=== PATIENT | female | born 1985 | race Asian ===

== ENCOUNTER 2020-09-17 14:05 | Outpatient (RCR) | payer BC, SELFPAY | END 2020-11-30 23:59 | LOC: IMMUN 14:05 | PROVIDERS: PCP Family Medicine; Visit Provider Family Medicine | DX: Z23 Encounter for immunization (principal) | CPT/HCPCS: 0001A; 0002A; 91300 ==

== ENCOUNTER 2023-05-15 05:31 | Inpatient (IN) | payer OTHER, SELFPAY ==
--- NOTE | 2023-05-08 17:22 | PCM.HP.BLA ---
History and Physical Date of Admission: 05/15/23 HPI: The patient is a 38 year old female presenting for pre-operative visit. She is scheduled for , for polyhydramnios, GDMA1 and EFW > 4500 gm on 05/15/23. Procedure discussed along with risks, benefits and complications. Other alternatives discussed for management. Consent form signed? Yes. ? ? PAST MEDICAL HISTORY PAST MEDICAL HISTORY Diagnosis Date ? Abnormal glandular Papanicolaou smear of cervix ? ? Chlamydia 2016 ? Cleft lip and palate ? ? Diet controlled gestational diabetes mellitus (GDM) in third trimester 04/04/2023 ? PMS (premenstrual syndrome) ? ? ? PAST SURGICAL HISTORY PAST SURGICAL HISTORY Procedure Laterality Date ? ANES INTRAORAL W/BIOPSY REPAIR CLEFT PALATE ? 1987 ? BONE GRAFT MAXILLA ? 06/25/1994 ? EXTENSIVE JAW SURGERY ? 06/25/2000 ? VAGINOSCOPY ? CURRENT MEDICATIONS Current Outpatient Medications Medication Sig Dispense Refill ? blood sugar diagnostic test strip 1 Strip four times daily. Use as instructed 120 Strip 9 ? Lancets lancets 1 Each four times daily. Use as instructed 120 Each 9 ? prental multivitamin 27 mg iron- 800 mcg tablet Take 1 tablet by mouth once daily. ? ? ? No current facility-administered medications for this visit. ? ? ALLERGIES: Amoxicillin, Penicillins, and Sulfa (Sulfonamide Antibiotics) ? PERSONAL HISTORY: SOCIAL HISTORY Social History ? Tobacco Use ? Smoking status: Former ? ? Years: 15 ? ? Types: Cigarettes ? ? Quit date: 06/27/2022 ? ? Years since quittin.8 ? Smokeless tobacco: Never Vaping Use ? Vaping Use: Never used Substance Use Topics ? Alcohol use: Not Currently ? ? Comment: occasionally ? Drug use: No ? FAMILY HISTORY: FAMILY HISTORY FAMILY HISTORY Adopted: Yes Problem Relation Age of Onset ? other (unknown) Mother ? ? patient is adopted ? other (unknown) Father ? ? patient is adopted ? ? REVIEW OF SYMPTOMS: GENERAL: denies fevers or chills ENDOCRINOLOGY: has not been on steroids Cardiology : denies palpitations or chest pain Respiratory: denies SOB or cough Hematology: denies history of prolonged bleeding or easy bruising or VTE Allergy: Denies history of personal or family history of allergy to anesthesia ? PHYSICAL EXAMINATION: ? VITALS: Blood pressure 132/88, weight 237 lb (107.5 kg), last menstrual period 08/17/2022. ? GENERAL: The patient is well nourished, well hydrated in no acute distress. , The patient is oriented to time, place, and person. NECK: Supple. No lynphadenopathy, normal thyroid, no thyromegaly. LUNGS: Clear to auscultation bilaterally. no wheezes, rhonchi or rales HEART: Regular rate and rhythm, Normal heart sounds, and No murmurs or gallops abd- soft, nontender, gravid ? IMPRESSION: Estimated Date of Delivery: 05/24/23 ? PLAN: The risks/benefits/alternatives and personal involved for the planned c/sectoin were reviewed with the patient. Her questions were answered to her satisfaction and she desires to proceed. Consent was signed. I reviewed with her postop instructions and expectations. Estimated weight is greater than 4500 g, GDM A1, blood sugars controlled, accelerated growth with polyhydramnios. Maternal- medicine recommends delivery at 38 to 39 weeks unless other indication arises sooner. ? I have reviewed and updated past medical and surgical history, medications and allergies
[2023-05-15] VITALS (22 sets, daily range): BP systolic 106–146; BP diastolic 44–90; PULSE 67–87; RESP 15–18; TEMP 36.1–36.8; O2SAT 95–100; BMI 41.7
[2023-05-15] MEDS: Lactated Ringers 1,000 ML 999 ML IV (05:50)
[2023-05-15 06:04] LABS: Absolute Lymphocyte Count 1.24 X10^3/uL (0.83-4.51); Basophil# 0.06 X10^3/uL; Basophil% 0.6 % (0-1); Eosinophil# 0.16 X10^3/uL; Eosinophils% 1.6 % (0-5); Hematocrit 37.9 % (37-47); Hemoglobin 12.5 g/dL (12.0-15.0); Lymphocyte # 1.24 X10^3/ul (0.83-4.51); Lymphocyte % 12.1 % (19-41); Mean Corpuscular Hgb 29.2 pg (27.0-32.0); Mean Corpuscular Volume 88.6 fL (81-99); Monocyte# 0.55 X10^3/uL; Monocyte% 5.4 % (0-10); NRBC Flagged by Analyzer 0 % (0-5); Neutrophil # 8.02 X10^3/uL (2.7-7.7); Neutrophil % 78.5 % (47-70); Platelet Count 202 K/mm3 (150-450); RBC Distribution Width CV 13.5 % (11.6-14.6); RBC Distribution Width SD 43.8 fl (35.1-43.9); Red Blood Count 4.28 M/mm3 (4.2-5.4); White Blood Count 10.2 K/mm3 (4.4-11.0)
[2023-05-15] MEDS: Acetaminophen 500 MG Tablet 1000 MG PO ×4 (06:18→23:50)
[2023-05-15 06:25] LABS: Bedside Glucose 110 mg/dL (74-106)
[2023-05-15] MEDS: Lactated Ringers 1,000 ML 150 ML IV (06:55)
[2023-05-15] MEDS: Sodium Citrate/Citric Acid 30 ML UDC PO (06:59)
[2023-05-15] MEDS: guaiFENesin 10 ML UDC (200MG/10ML) PO (07:05)
[2023-05-15] MEDS: Cefazolin 2 GM in 0.9% Normal Saline (100mL Bag) 100 ML IV (07:26)
--- NOTE | 2023-05-15 08:21 | OP.PCM_ITS ---
Maternal Data Information Final KHAI: 05/15/23
--- NOTE | 2023-05-15 08:21 | EX.PCM.OBRPT ---
Maternal Data Information Final KHAI: 05/24/23 Gestational age: 38 5/7 Details Operative Information Date of Procedure: 05/15/23 Pre-Operative Diagnosis: gestational diabetes, accelerated growth, MFM recommend delivery 38-39 weeks Post-Operative Diagnosis: same Classification: Scheduled Procedure Type: low transverse sports equipment supervisor #1: Ryan Contreras Type of Anesthesia: Epidural Special Medications: duramorph Antibiotic Given: Ancef 2 grams IV x1 Drain: [place] to straight drain Estimated Blood Loss: 800 Fluids Replaced: 1000 Procedure Start Time: 07:48 Procedure Stop Time: 08:27 Time of Delivery: 07:53 Findings Description of Procedure: The patient was taken to the operating room. She was prepped and draped in the dorsal supine position with a leftward tilt. A Pfannenstiel skin incision was made approximately 2 cm above the symphysis pubis and carried through to underlying layer fascia with the scalpel. The fascia was incised incised in the midline and extended laterally with the Carlos scissors. The fascia was dissected off the rectus muscles with blunt and sharp dissection. The rectus muscles were in the midline and the peritoneum was entered bluntly. The peritoneal incision was stretched and the bladder blade was placed. The uterine incision was made in a low transverse fashion with the scalpel and extended superiorly and inferiorly with blunt dissection. The amniotic membranes were ruptured bluntly and clear amniotic fluid returned. The 's head was brought to the incision in the flexed position and was not able to be delivered which is fundal pressure. The vacuum was placed and the vacuum created 550 mmHg. I pulled with 1 pull and the head delivered easily. The remainder of the was delivered with gentle traction and fundal pressure in the standard fashion. The mouth and nares were bulb suctioned. The cord was clamped and cut as the was stimulated. Cord clamping was delayed. The infant was handed off to the waiting nursing staff. The placenta was delivered with fundal massage and gentle traction in the standard fashion. The uterus was exteriorized and cleared of all clots and debris. The cervix was dilated with a ring forcep. The uterine incision was closed with #1 Vicryl in a running locked fashion. A second layer of the same suture was used in an imbricating fashion to obtain hemostasis. The incision was examined and was found to be hemostatic. The uterus was placed back into the peritoneal cavity and hemostasis was again confirmed. The rectus muscles were examined and any bleeding was Bovie cauterized. The parietal peritoneum and rectus muscles were closed en bloc with an 0 Vicryl running suture. The surgical teams outer gloves were then changed. The rectus fascia was examined and any bleeding was Bovie cauterized and the rectus fascia was closed with #1 looped PDS suture in a running standard fashion. The subcutaneous tissue was examining and any bleeding was Bovie cauterized. The subcutaneous tissue was reapproximated with 3-0 Vicryl suture. The skin was closed in a subcuticular fashion by the [employer] with me present in the labor and delivery suite. I performed the remainder of the procedure with assistance. All sponge, lap, and needle counts were correct. The patient was taken to her room for recovery in a stable condition. Presentation: Positive for Vertex Amniotic Membrane Rupture Type: Artificial Amniotic Fluid Description: Clear Placental Delivery Description: Expressed Placenta Disposition: [facility] Specimen(s) Sent to Pathology: none Cord Vessel Description: 3 Vessels Cord Entanglement: Around neck x 1, loose Nuchal Cord Compression: Without compression Infant A Gender: Male (Garry Carmona) (1 minute): 8 (5 minute): 9 Delayed Cord Clamping: Yes Complications Complications: none Admit VTE Documentation VTE Present on Admission: No VTE Mechan Device Prophylaxis: SCD's VTE Pharm Prophylaxis Ordered: Yes
[2023-05-15 08:25] LABS: Syphilis Antibodies Non-reactive
[2023-05-15] MEDS: Oxytocin 15 Units/NS 250ml 15 UNITS/250 ML IV.SOLN 83 UNITS IV (08:50)
[2023-05-15] MEDS: Ketorolac 30 MG/ML Syringe IV ×3 (09:16→21:34)
[2023-05-15 10:04] LABS: Bedside Glucose 116 mg/dL (74-106)
[2023-05-15] MEDS: Lactated Ringers 1,000 ML 100 ML IV (11:59)
[2023-05-15] MEDS: Enoxaparin 40 MG/0.4 ML Syringe SC (20:00)
[2023-05-15] MEDS: 0.9% Saline Lock 10 ML Syringe IV (21:34)
[2023-05-16 01:45] VITALS: RESP 15; O2SAT 96
[2023-05-16] MEDS: Ketorolac 30 MG/ML Syringe IV (03:30)
[2023-05-16] MEDS: 0.9% Saline Lock 10 ML Syringe IV (03:31)
[2023-05-16 03:45] VITALS: BP 122/73; PULSE 78; RESP 16; TEMP 36.8; O2SAT 96
[2023-05-16 04:19] LABS: Hematocrit 33.2 % (37-47); Hemoglobin 10.9 g/dL (12.0-15.0); Mean Corp Hgb Conc 32.8 g/dL (32-36); Mean Corpuscular Hgb 29.5 pg (27.0-32.0); Mean Platelet Vol. 9.8 fl (6.2-12.0); Platelet Count 193 K/mm3 (150-450); RBC Distribution Width CV 13.6 % (11.6-14.6); RBC Distribution Width SD 44.4 fl (35.1-43.9); Red Blood Count 3.69 M/mm3 (4.2-5.4); White Blood Count 15.8 K/mm3 (4.4-11.0)
[2023-05-16 04:21] LABS: Bedside Glucose 108 mg/dL (74-106)
[2023-05-16] MEDS: Acetaminophen 500 MG Tablet 1000 MG PO ×3 (05:35→19:45)
[2023-05-16 05:45] VITALS: RESP 16; O2SAT 95
[2023-05-16 08:00] VITALS: BP 113/69; PULSE 74; RESP 18; TEMP 36.6; O2SAT 96
--- NOTE | 2023-05-16 08:20 | PCM.PN.OB ---
Subjective Subjective Pain wellcontrolled. Average lochia. Ambulated and urinated without difficulty. Passing flatus. Denies nausea vomiting. Objective Data Objective Data Vital Signs: Vital Signs Temp Pulse Resp BP Pulse Ox O2 Del Method 97.8 F 74 18 113/69 96 Room Air 05/16/23 08:00 05/16/23 08:00 05/16/23 08:00 05/16/23 08:00 05/16/23 08:00 05/16/23 08:00 Oxygen Delivery Method Room Air Weight: 106.8 kg Body Mass Index (BMI) 41.7 Intake & Output: Intake and Output for Last 24 Hours 05/14/23 05/15/23 05/16/23 23:59 23:59 23:59 Intake Total 3300 / 3300 Output Total 1500 / 2200 1350 / 1350 Balance 1800 / 1100 -1350 / -1350 Lab / Micro Data 05/16/23 04:00 Labs: Laboratory Results - last 24 hr 05/15/23 05:50: Syphilis Total Ab Non-reactive 05/15/23 09:17: POC Glucose 116 H 05/16/23 03:52: POC Glucose 108 H 05/16/23 04:00: WBC 15.8 H, RBC 3.69 L, Hgb 10.9 L, Hct 33.2 L, MCV 90.0, MCH 29.5, MCHC 32.8, RDW Std Deviation 44.4 H, RDW Coeff of Luz 13.6, Plt Count 193, MPV 9.8 Micro: Microbiology 05/15/23 07:20 Nasal Secretion SARS-CoV-2 & FLU Antigen (Rapid) - Final Physical Exam Const alert General Appearance: cooperative GI GI Narrative: soft, moderate distention, fundus firm, appropriately tender. Abdominal bandage clean dry and intact Assessment & Plan (1) delivery delivered: PLAN: Postop day #1 status post primary section. Mild acute blood loss anemia appropriate for blood loss during surgery. Patient and are doing well. Likely discharge home tomorrow. Routine postop care.
[2023-05-16] MEDS: Enoxaparin 40 MG/0.4 ML Syringe SC ×2 (09:24→19:46)
[2023-05-16] MEDS: Senna/Docusate Sodium 1 Tablet PO (09:24)
[2023-05-16] MEDS: Ibuprofen 600 MG Tablet PO ×3 (09:24→21:26)
--- NOTE | 2023-05-16 10:24 | PCM.PN.CNM ---
Objective Data Objective Data Vital Signs: Vital Signs Temp Pulse Resp BP Pulse Ox O2 Del Method 97.8 F 74 18 113/69 96 Room Air 05/16/23 08:00 05/16/23 08:00 05/16/23 08:00 05/16/23 08:00 05/16/23 08:00 05/16/23 08:00 Oxygen Delivery Method Room Air Weight: 235 lb 7.259 oz Body Mass Index (BMI) 41.7 Intake & Output: Intake and Output for Last 24 Hours 05/14/23 05/15/23 05/16/23 23:59 23:59 23:59 Intake Total 3300 / 3300 Output Total 1500 / 2200 1350 / 1350 Balance 1800 / 1100 -1350 / -1350 Lab / Micro Data 05/16/23 04:00 Labs: Laboratory Results - last 24 hr 05/16/23 03:52: POC Glucose 108 H 05/16/23 04:00: WBC 15.8 H, RBC 3.69 L, Hgb 10.9 L, Hct 33.2 L, MCV 90.0, MCH 29.5, MCHC 32.8, RDW Std Deviation 44.4 H, RDW Coeff of Luz 13.6, Plt Count 193, MPV 9.8 Micro: Microbiology 05/15/23 07:20 Nasal Secretion SARS-CoV-2 & FLU Antigen (Rapid) - Final Assessment & Plan PLAN: Plan updated on the above assessment findings and plan
[2023-05-16 13:39] VITALS: BP 120/88; PULSE 71; RESP 18; TEMP 36.2
[2023-05-16 19:51] VITALS: BP 135/74; PULSE 75; RESP 16; TEMP 36.6; O2SAT 96
[2023-05-17] MEDS: Acetaminophen 500 MG Tablet 1000 MG PO ×2 (01:59→08:14)
[2023-05-17 02:01] VITALS: BP 134/64; RESP 18; TEMP 36.4; O2SAT 95
[2023-05-17] MEDS: Ibuprofen 600 MG Tablet PO ×2 (03:38→10:25)
--- NOTE | 2023-05-17 06:59 | PCM.PN.OB ---
Subjective Subjective pain well controlled, average lochia. + BM. Ambulating nad urinating without difficulty Objective Data Objective Data Vital Signs: Vital Signs Temp Pulse Resp BP Pulse Ox O2 Del Method 97.6 F L 75 18 134/64 H 95 Room Air 05/17/23 02:01 05/16/23 19:51 05/17/23 02:01 05/17/23 02:01 05/17/23 02:01 05/17/23 02:01 Oxygen Delivery Method Room Air Weight: 106.8 kg Body Mass Index (BMI) 41.7 Intake & Output: Intake and Output for Last 24 Hours 05/15/23 05/16/23 05/17/23 23:59 23:59 23:59 Intake Total 3300 / 3300 Output Total 1500 / 2200 1350 / 1350 Balance 1800 / 1100 -1350 / -1350 Lab / Micro Data 05/16/23 04:00 Micro: Microbiology 05/15/23 07:20 Nasal Secretion SARS-CoV-2 & FLU Antigen (Rapid) - Final Physical Exam Narrative bandage- clean, dry and intact abd soft, mild distention, appropriate tenderness Const alert General Appearance: cooperative GI GI Narrative: soft, moderate distention, fundus firm, appropriately tender. Abdominal bandage clean dry and intact Narrative: Fundus firm, below umbilicus. Assessment & Plan (1) delivery delivered: PLAN: Plan Postoperative day #2 status post primary section. Patient doing well. Likely discharge home today
--- NOTE | 2023-05-17 07:07 | DS.PCM_ITS ---
Providers Date of Admission: 05/15/23 Date of Discharge: 05/17/23 Primary Care Physician: Dr. Shaun Garrett MD Reason For Visit: PRIMARY Diagnosis Discharge Diagnosis (1) delivery delivered: Status: Acute Code(s): O82 - Encounter for delivery without indication Plan Postoperative day #2 status post primary section. Patient doing well. Likely discharge home today Medications at Discharge Home Medications vit no.95-ferrous fumarate 28 mg-folic acid 800 mcg tablet () 1 tab PO DAILY 05/15/23 ibuprofen 600 mg tablet 600 mg PO Q6H PRN Pain 20 days #60 TABLETS 05/17/23 oxycodone 5 mg tablet 5 mg PO Q8H PRN severe pain 7 days #8 TABLETS 05/17/23 Hospital Course Operations - (Primary LTCS) Summary of Care Provided Minutes Spent on Discharge: 16 Hospital Course: 38-year-old Time parous female admitted for gestational diabetes, polyhydramnios and LGA fetus. Elected for primary section due to estimated weight being approximately 4500 g with gestational diabetes. section was performed on 05/15/2023 without complications. By postop day #2 she was ambulating urinating tolerating regular diet and ready to discharge home with routine instructions and follow-up Weight / BMI Weight Weight: 106.8 kg Body Mass Index (BMI) 41.7 ABG / Lab / Microbiology Data 05/16/23 04:00 Microbiology: Microbiology 05/15/23 07:20 Nasal Secretion SARS-CoV-2 & FLU Antigen (Rapid) - Final D/C Instructions Discharge Diet: No restrictions May resume sexual activity in: 4-6 weeks Lifting Restrictions: 20 pounds Additional Activity Instructions: Nothing in the vagina for 6 weeks. You may return to work/school in 6 weeks. Call your doctor if your incision/area has: Continuous Slow Oozing, Sudden Increased Bleeding, Increased Pain/ Swelling, Increased Redness and Foul Smelling Discharge Call your doctor if you observe: Fever of 101 or Higher and Using more than 1 pad per hour (for 2 hours) Suture Line Care: Avoid Pulling/Pushing and Avoid Pinching/Bending Cleanse incision/area with: Keep Dressing Clean & Dry Please Follow Up With: Yael Araujo MD When: Call to make an appointment for an incision check in 1-2 [phone]. You will need a post check in 6 weeks. Send a CC video message for nonurgent inquiries Meaningful Use Info Meaningful Use Diagnoses (Choose all that apply): None applicable Discharge Plan Admission Admit Date/Time: 05/15/23 05:31 Primary Reason for Your Visit: delivery Attending Provider: Yael Araujo Primary Care Provider: Shaun Garrett Discharge Orders/Prescriptions Prescriptions: New ibuprofen [ibuprofen] 600 mg tablet 600 mg PO Q6H PRN (Reason: Pain) 20 Days Qty: 60 0RF oxycodone 5 mg tablet 5 mg PO Q8H PRN (Reason: severe pain) 7 Days Qty: 8 0RF Continued PNV cmb#95-ferrous fumarate-FA [] 28 mg iron- 800 mcg tablet 1 tab PO DAILY Referrals / Follow Up: Shaun Garrett MD [Primary Care Provider] - Disposition Disposition (needs filled in before D/C Order can be placed): Home, Self Care
[2023-05-17 08:02] VITALS: BP 138/70; PULSE 75; RESP 16; TEMP 36.5; O2SAT 96
[2023-05-17] MEDS: Enoxaparin 40 MG/0.4 ML Syringe SC (08:13)
[2023-05-17] MEDS: Senna/Docusate Sodium 1 Tablet PO (10:25)
== END 2023-05-17 11:40 | disposition home or self-care (01) | DRG 788 ==
PROVIDERS: Obstetrics & Gynecology; Admitting Provider Obstetrics & Gynecology; PCP Family Medicine; Visit Provider Obstetrics & Gynecology
PROC: 10D00Z1 Extraction of Products of Conception, Low, Open Approach (ICD-10-PCS; CPT 59514; principal; 2023-05-15 07:00)
DX: O40.3XX0 Polyhydramnios, third trimester, not applicable or unspecified (principal); O24.420 Gestational diabetes mellitus in childbirth, diet controlled; J06.9 Acute upper respiratory infection, unspecified; O36.63X0 Maternal care for excessive fetal growth, third trimester, not applicable or unspecified; O99.52 Diseases of the respiratory system complicating childbirth; O69.81X0 Labor and delivery complicated by cord around neck, without compression, not applicable or unspecified; Z37.0 Single live birth; Z3A.38 38 weeks gestation of pregnancy; Z87.891 Personal history of nicotine dependence
CPT/HCPCS: 59025; 59050; 82962; 85025; 85027; 86780; 86850; 86900; 86901; 87428; 99221; 99252; J7120; A4216; G0378; G0463; J2405

== ENCOUNTER 2024-04-18 14:06 | Emergency (ER) | payer OTHER, SELFPAY ==
[2024-04-18 14:07] VITALS: BP 140/96; PULSE 71; RESP 18; TEMP 35.6; O2SAT 100; BMI 33.6
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
--- NOTE | 2024-04-18 15:15 | ED.RN ---
pt comes out to the nurses station and is completely dressed- pt states since im refusing the xray, can i just go home now? is there anything that i need to sign? Dr. culver updated at this time.
--- OUTSIDE RECORDS SUMMARY | 2024-04-18 16:35 | XMS RPT_ITS | CCD ---
Author Organization [facility] CliniSyaz Care Team Providers Care Charge Attendant Name Role Phone Sherry Garrett Primary Care Provider SHERRY GARRETT Primary Care Unavailable MAGUI DEE Referring Unavail able SOLE VOGEL Referring Unavailable SHERRY GARRETT Primary Care Unavailable SOLE VOGEL Attending Unavailable MAGUI DEE Attending Unavail able SHERRY GARRETT Primary Care Unavailable TOMSHERRY LAMA Primary Care Unavailable TORIE ISAACS Attending Unavailable GLENYS NGO Attending Unavailable SHERRY GARRETT Primary Care Unavailable GLENYS NGO Referring Unavailable SHERRY GARRETT Primary Care Unavailable VILMA HERNANDEZ Referring Unavailable GUERO ESTRELLA Attending Unavailable SHERRY GARRETT Primary Care Unavailable VILMA HERNANDEZ Referring Unavailable TOMSHERRY LAMA Primary Care Unavailable GLENYS NGO Attending Unavailable SHERRY GARRETT Primary Care Unavailable SOLE VOGEL Attending Unavailable SHERRY GARRETT Primary Care Unavailable TOMSHERRY LAMA Primary Care Unavailable SOLE VOGEL Attending Unavailable SOLE VOGEL Referring Unavailable SHERRY GARRETT Primary Care Unavailable VILMA HERNANDEZ Attending Unavailable GUERO ESTRELLA Referring Unavailable TOMSHERRY LAMA Primary Care Unavailable PABLO SHAH Attending Unavailable GUERO ESTRELLA Referring Unavailable TOMSHERRY LAMA Primary Care Unavailable TOMSHERRY LAMA Primary Care Unavailable SOLE VOGEL Referring Unavailable SHERRY GARRETT Primary Care Unavailable GUERO ESTRELLA Referring Unavailable MAGUI DEE Attending Unavail able SHERRY GARRETT Primary Care Unavailable TOMSHERRY LAMA Primary Care Unavailable SOLE VOGEL Attending Unavailable VILMA HERNANDEZ Referring Unavailable TOMSHERRY LAMA Primary Care Unavailable SOLE VOGEL Referring Unavailable TOMKELBY, SHERRY DULCE Primary Care Unavailable SHERRY GARRETT Primary Care Unavailable GUERO ESTRELLA Attending Unavailable SHERRY GARRETT Primary Care Unavailable GUERO ESTRELLA Attending Unavailable SHERRY GARRETT Primary Care Unavailable MAGUI DEE Attending Unavail able SHERRY GARRETT Primary Care Unavailable MAGUI DEE Referring Unavail able Allergies Allergy Classification Reported Allergen(s) Allergy Type Date of Onset Reaction(s) Facility (20 sources) Amoxicillin; Translations: [AMOXICILLIN] Drug Allergy 11-09-2010 [facility] (20 sources) Penicillins; Translations: [PENICILLINS] Drug Allergy 11-09-2010 [facility] (20 sources) Sulfonamides (Antibiotic); Translations: [SULFA (SULFONAMIDE ANTIBIOTICS)] Drug Allergy 11-09-2010 [facility] Medications Completed/Discontinued Medications Medication Drug Class(es) Dates Sig (Normalized) Sig (Original) ibuprofen 600 mg oral tablet (1 source) Nonsteroidal Anti-inflammatory Drug Start: 05-17-2023 ibuprofen (MOTRIN) 600 mg tablet prental multivitamin 27 mg iron- 800 mcg tablet (20 sources) take 1 tablet by mouth once daily prental multivitamin 27 mg iron- 800 mcg tablet Take 1 tablet by mouth once daily. 0 Active Comment on above: Take 1 tablet by mabel th once daily. Problems Active Problems Problem Classification Problem Date Documented Date Episodic/Chronic Diabetes or abnormal glucose tolerance complicating ; childbirth; or the puerperium (20 sources) Abnormal glucose level; Translations: [Abnormal glucose complicating ] Onset: 03-14-2023 03-14-2023 Episodic Immunizations and screening for infectious disease (20 sources) Patient encounter status; Translations: [Encounter for screening for human papillomavirus (HPV)] Onset: 02-16-2023 Episodic Menstrual disorders (2 sources) Missed period; Translations: [Irregular menstruation, unspecified] Onset: 09-22-2022 Chronic Other complications of (1 source) Maternal obesity complicating , childbirth and the puerperium, antepartum; Translations: [Obesity complicating , third trimester] 05-08-2023 Chronic Other complications of (1 source) Obesity complicating , third trimester; Translations: [Obesity affecting in third trimester, unspecified obesity type] Onset: 05-08-2023 Chronic Other complications of (5 sources) Multigravida of advanced maternal age; Translations: [Supervision of elderly multigravida, second trimester] 01-09-2023 Episodic Other complications of (2 sources) Uterine size for dates discrepancy; Translations: [Uterine size-date discrepancy, third trimester] 04-10-2023 Episodic Other complications of (1 source) Excessive growth affecting management of mother; Translations: [Maternal care for excessive growth, third trimester, not applicable or unspecified] 05-08-2023 Episodic Other complications of (1 source) Maternal care for excessive growth, third trimester, not applicable or unspecified; Translations: [Macrosomia of fetus affecting management of mother in third trimester, single or unspecified fetus] Onset: 05-08-2023 Episodic Other complications of (1 source) Uterine size-date discrepancy, third trimester; Translations: [Uterine size-date discrepancy, third trimester] Onset: 05-08-2023 Episodic Other complications of (1 source) Supervision of elderly multigravida, third trimester; Translations: [AMA (advanced maternal age) multigravida 35+, third trimester] Onset: 05-03-2023 Episodic Other complications of (1 source) Supervision of high risk , unspecified, third trimester; Translations: [Supervision of high risk in third trimester] Onset: 04-10-2023 Episodic Other congenital anomalies (20 sources) Cleft palate with cleft lip; Translations: [Unspecified cleft palate with unilateral cleft lip] Onset: 10-05-2022 Chronic Other female genital disorders (20 sources) Premenstrual tension syndrome; Translations: [Premenstrual tension syndrome] Onset: 03-19-2013 03-19-2013 Chronic Other nutritional; endocrine; and metabolic disorders (1 source) Abnormal weight gain; Translations: [Abnormal weight gain] Episodic Other and delivery including normal (4 sources) Normal ; Translations: [Encounter for supervision of normal first , second trimester] Onset: 05-08-2023 02-06-2023 Episodic Other screening for suspected conditions (not mental disorders or infectious disease) (3 sources) ultrasound increased nuchal translucency; Translations: [Encounter for screening for nuchal translucency] Onset: 02-16-2023 Episodic Polyhydramnios and other problems of amniotic cavity (13 sources) Polyhydramnios; Translations: [Polyhydramnios, third trimester, not applicable or unspecified] Onset: 04-10-2023 04-10-2023 Episodic Residual codes; unclassified (1 source) Gestation period, 12 weeks; Translations: [12 weeks gestation of ] Episodic Residual codes; unclassified (1 source) Gestation period, 16 weeks; Translations: [16 weeks gestation of ] Episodic Residual codes; unclassified (2 sources) Gestation period, 20 weeks; Translations: [20 weeks gestation of ] 01-09-2023 Episodic Residual codes; unclassified (1 source) Gestation period, 24 weeks; Translations: [24 weeks gestation of ] 02-06-2023 Episodic Residual codes; unclassified (1 source) Gestation period, 29 weeks; Translations: [29 weeks gestation of ] 03-13-2023 Episodic Residual codes; unclassified (1 source) Gestation period, 31 weeks; Translations: [31 weeks gestation of ] 03-28-2023 Episodic Residual codes; unclassified (2 sources) Gestation period, 33 weeks; Translations: [33 weeks gestation of ] 04-10-2023 Episodic Residual codes; unclassified (1 source) Gestation period, 35 weeks; Translations: [35 weeks gestation of ] 04-25-2023 Episodic Residual codes; unclassified (1 source) Gestation period, 37 weeks; Translations: [37 weeks gestation of ] 05-08-2023 Episodic Residual codes; unclassified (1 source) 37 weeks gestation of ; Translations: [37 weeks gestation of ] Onset: 05-08-2023 Episodic Residual codes; unclassified (1 source) 35 weeks gestation of ; Translations: [35 weeks gestation of ] Onset: 05-03-2023 Episodic Past or Other Problems Problem Classification Problem Date Documented Date Episodic/Chronic Cancer of cervix (20 sources) Atypical squamous cells on cervical Papanicolaou smear cannot exclude high grade squamous intraepithelial lesion; Translations: [Atypical squamous cells cannot exclude high grade squamous intraepithelial lesion on cytologic smear of cervix (ASC-H)] Onset: 08-21-2018 08-21-2018 Episodic Other complications of (20 sources) Elderly primigravida; Translations: [Supervision of elderly primigravida, unspecified trimester] Onset: 10-05-2022 Episodic Other complications of (20 sources) High risk ; Translations: [Supervision of high risk , unspecified, second trimester] Onset: 02-06-2023 02-06-2023 Episodic Other complications of (1 source) Supervision of elderly multigravida, second trimester; Translations: [Multigravida of advanced maternal age in second trimester] Onset: 03-13-2023 Episodic Other complications of (1 source) Supervision of elderly primigravida, first trimester; Translations: [Advanced maternal age, 1st , first trimester] Onset: 01-09-2023 Episodic Residual codes; unclassified (1 source) 24 weeks gestation of ; Translations: [24 weeks gestation of ] Onset: 03-13-2023 Episodic Residual codes; unclassified (1 source) 12 weeks gestation of ; Translations: [12 weeks gestation of ] Onset: 01-09-2023 Episodic Residual codes; unclassified (1 source) 16 weeks gestation of ; Translations: [16 weeks gestation of ] Onset: 12-12-2022 Episodic Results Test Name Value Interpretation Reference Range Facil ity GLUCOSE 1 HOURon 07-03-2023 Glucose 1 Hr post Unsp challenge [Mass/Vol] 205 mg/dL Normal See Comment [facility] Comment on above: Order Comment: Speci men Type: SWAB Ordering Facility: [facility] Address: [address] [place] [address] Result Comment: A di agnostic cutoff for this time point is not established, and should be clinically determined. [place] Diabetes Association guidelines state a diabetes mellitus diagnosis is preliminarily made when the fasting plasma glucose meets or exceeds 126 mg/dL and/or the 2 hr glucose tolerance meets or exceeds 200 mg/dL. In the absence of unequivocal hyperglycemia, results should be confirmed with repeat testing. Patients are at increased risk for diabetes mellitus (prediabetes) when the fasting glucose is 100 to 125 mg/dL or the 2 hr glucose tolerance result is 140 to 199 mg/dL. Performed By: #### 3 6902-5, MARVIN #### [facility] CLIA [id number] [address] [place] [address] OF [place] GLUCOSE, 0 HOURon 07-03-2023 Glucose baseline [Mass/Vol] 101 mg/dL High 74-99 [facility] Comment on above: Order Comment: Polly gotti Type: BLOOD SPECIMENOrdering Facility: [facility] Address: [address] [place] [address] Result Comment: [place] Diabetes Association guidelines state a diabetes mellitus diagnosis is preliminarily made when the fasting plasma glucose meets or exceeds 126 mg/dL and/or the 2 hr glucose tolerance meets or exceeds 200 mg/dL. In the absence of unequivocal hyperglycemia, results should be confirmed with repeat testing. Patients are at increased risk for diabetes mellitus (prediabetes) when the fasting glucose is 100 to 125 mg/dL or the 2 hr glucose tolerance result is 140 to 199 mg/dL. Performed By: #### G T0 ####[facility] [id number] [place] [address] [place] GLUCOSE, 2 HOURon 07-03-2023 Glucose 2 Hr post Unsp challenge [Mass/Vol] 154 mg/dL High 74-139 [facility] Comment on above: Order Comment: Polly gotti Type: SWAB Ordering Facility: [facility] Address: [address] [place], [place] [id number] Result Comment: [place] Diabetes Association guidelines state a diabetes mellitus diagnosis is preliminarily made when the fasting plasma glucose meets or exceeds 126 mg/dL and/or the 2 hr glucose tolerance meets or exceeds 200 mg/dL. In the absence of unequivocal hyperglycemia, results should be confirmed with repeat testing. Patients are at increased risk for diabetes mellitus (prediabetes) when the fasting glucose is 100 to 125 mg/dL or the 2 hr glucose tolerance result is 140 to 199 mg/dL. Performed By: #### 3 6902-5, TRJOSE #### [facility] CLIA [id number] [address] [facility] [address] [place] HISTORY PHYSICALon HISTORY PHYSICAL HNO ID: [id number] Author: Sole Vogel MD Service: ? Author Type: Physician Type: HANDP Filed: 05/08/2023 5:05 PM Note Text: Pre-Op History and Physical HPI: The patient is a 38 year old female presenting for pre-operative visit. She is scheduled for , for polyhydramnios, GDMA1 and EFW > 4500 gm on 05/15/23. Procedure discussed along with risks, benefits and complications. Other alternatives discussed for management. Consent form signed? Yes. PAST MEDICAL HISTORY Diagnosis Date Abnormal glandular Papanicolaou smear of cervix Chlamydia 2016 Cleft lip and palate Diet controlled gestational diabetes mellitus (GDM) in third trimester 04/04/2023 PMS (premenstrual syndrome) PAST SURGICAL HISTORY Procedure Laterality Date ANES INTRAORAL W/BIOPSY REPAIR CLEFT PALATE 1987 BONE GRAFT MAXILLA 06/25/1994 EXTENSIVE JAW SURGERY 06/25/2000 VAGINOSCOPY Current Outpatient Medications Medication Sig Dispense Refill blood sugar diagnostic test strip 1 Strip four times daily. Use as instructed 120 Strip 9 Lancets lancets 1 Each four times daily. Use as instructed 120 Each 9 prental multivitamin 27 mg iron- 800 mcg tablet Take 1 tablet by mouth once daily. No current facility-administere d medications for this visit. ALLERGIES: Amoxicillin, Penicillins, and Sulfa (Sulfonamide Antibiotics) PERSONAL HISTORY: Social History Tobacco Use Smoking status: Former Years: 15 Types: Cigarettes Quit date: 06/27/2022 Years since quittin.8 Smokeless tobacco: Never Vaping Use Vaping Use: Never used Substance Use Topics Alcohol use: Not Currently Comment: occasionally Drug use: No FAMILY HISTORY: FAMILY HISTORY Adopted: Yes Problem Relation Age of Onset other (unknown) Mother patient is adopted other (unknown) Father patient is adopted REVIEW OF SYMPTOMS: GENERAL: denies fevers or chills ENDOCRINOLOGY: has not been on steroids Cardiology : denies palpitations or chest pain Respiratory: denies SOB or cough Hematology: denies history of prolonged bleeding or easy bruising or VTE Allergy: Denies history of personal or family history of allergy to anesthesia PHYSICAL EXAMINATION: VITALS: Blood pressure 132/88, weight 237 lb (107.5 kg), last menstrual period 08/17/2022. GENERAL: The patient is well nourished, well hydrated in no acute distress. , The patient is oriented to time, place, and person. NECK: Supple. No lynphadenopathy, normal thyroid, no thyromegaly. LUNGS: Clear to auscultation bilaterally. no wheezes, rhonchi or rales HEART: Regular rate and rhythm, Normal heart sounds, and No murmurs or gallops abd- soft, nontender, gravid IMPRESSION: Estimated Date of Delivery: 05/24/23 PLAN: The risks/benefits/alter natives and personal involved for the planned c/sectoin were reviewed with the patient. Her questions were answered to her satisfaction and she desires to proceed. Consent was signed. I reviewed with her postop instructions and expectations. Estimated weight is greater than 4500 g, GDM A1, blood sugars controlled, accelerated growth with polyhydramnios. Maternal- medicine recommends delivery at 38 to 39 weeks unless other indication arises sooner. I have reviewed and updated past medical and surgical history, medications and allergies Sole Vogel M.D. Normal [facility] OBSTETRIC ULTRASOUND WHIon 1 07-08-2022 [facility] URINE OB DIP B/Oon 3 Glucose Ql (U) Negative Neg mg/dL [facility] Protein.monoclonal (U) [Mass/Vol] Negative Neg mg/dL [facility] ROUTINE, GROUP B ST REP PCRon 04-25-2023 ROUTINE, GROUP B STREP PCR GROUP B STREP PCR: Negative for Group B Streptococcus by PCR. Normal [facility] Comment on above: Performed By: #### G [facility] ####[facility] [id number] [place] [address] [place] URINE OB DIP B/Oon 3 Glucose Ql (U) Negative Neg mg/dL [facility] Protein.monoclonal (U) [Mass/Vol] Negative Neg mg/dL [facility] CNPNon 04-12-2023 CNPN Telephone (OBGYWM) MEENAKSHI ORTA ([id number]) 1985 F Date Time Provider Department 04/12/23 GUERO ESTRELLAWDarcie During your visit today, we recorded the following information about you: Elizabeth Becerra RN 04/12/2023 11:22 AM Signed Patient 34w0d calling with concerns of right sided rib pain that started this AM. Patient states she was coughing and felt something pop . She now has a constant sharp pain in that area. Pain is a 9/10 with standing, walking and coughing. Pain decreases to a 4/10 with sitting. Denies any bleeding, leaking, contractions, cramping, decreased movement, headache, dizziness or blurred vision. Patient has not tried anything for the pain. Encouraged to try Tylenol or heat/ice to the area. Please address. Guero Hernandez RN, MD 04/12/2023 11:55 AM Addendum I agree with tylenol AND heat. Please have her try this and will go from there. MD Rin Gorman Lindsey RN 04/12/2023 1:06 PM Signed Patient notified and voiced understanding of below. Elizabeth Becerra RN Allergies As of Date: 04/12/2023 Noted Allergy Reaction AMOXICILLIN 11/09/2010 4 - Hives PENICILLINS 11/09/2010 4 - Hives SULFA (SULFONAMIDE ANTIBIOTICS) 11/09/2010 4 - Hives Date Reviewed: 04/10/2023 Reviewed by: Angy Lantigua Ma - Fully Assessed Reason for Visit: OB-pain [Other] Prescriptions as of 04/12/2023 - blood sugar diagnostic test strip 1 Strip four times daily. Use as instructed - Lancets lancets 1 Each four times daily. Use as instructed - prental multivitamin 27 mg iron- 800 mcg tablet Take 1 tablet by mouth once daily. Problem List As Of Date 04/12/2023 Noted Resolved PMS (premenstrual syndrome) [N94.3] 03/19/2013 Atypical squamous cells cannot exclude high gra*08/21/2018 Advanced maternal age, 1st [O09.519] 10/05/2022 Cleft lip and palate [Q37.9] 10/05/2022 Supervision of high risk in second tr*02/06/2023 Encounter for follow-up ultrasound of cheryl*02/16/2023 Abnormal glucose complicating [O99.81*03/14/2023 04/04/2023 Diet controlled gestational diabetes mellitus (*04/04/2023 Polyhydramnios in third trimester [O40.3XX0] 04/10/2023 Encounter Status:Closed by ELIZABETH BECERRA RN on 04/12/23 Normal [facility] OBSTETRIC ULTRASOUND WHIon 1 [facility] URINE OB DIP B/Oon Glucose Ql (U) Negative Neg mg/dL [facility] Protein.monoclonal (U) [Mass/Vol] Negative Neg mg/dL [facility] GLUCOSE GEST, 1 HOURon 04-04 Glucose 1 Hr post Unsp challenge [Mass/Vol] 201 mg/dL High 74-179 [facility] Comment on above: Order Comment: Speci men Type: SWAB Ordering Facility: [facility] Address: [address] [place] [address] Result Comment: [facility] of Obstetricians and Gynecologists (Jonathan/Elisabeth) guidelines state gestational diabetes mellitus is present when 2 or more of the plasma glucose concentrations meet or exceed the following levels: fastin mg/dl, 1 hr: 180 mg/dl, 2 hr: 155 mg/dl, and 3 hr: 140 mg/dl. Performed By: #### 3 6902-5, MARVIN #### [facility] CLIA [id number] [address] STATES OF [facility] GLUCOSE GEST, 2 HOURon 04-04 Glucose 2 Hr post Unsp challenge [Mass/Vol] 139 mg/dL Normal 74-154 [facility] Comment on above: Order Comment: Speci men Type: SWAB Ordering Facility: [facility] Address: [address] [place] [address] Result Comment: [facility] Congress of Obstetricians and Gynecologists (Jonathan/Elisabeth) guidelines state gestational diabetes mellitus is present when 2 or more of the plasma glucose concentrations meet or exceed the following levels: fastin mg/dl, 1 hr: 180 mg/dl, 2 hr: 155 mg/dl, and 3 hr: 140 mg/dl. Performed By: #### 3 6902-5, TRVAMP #### [facility] CLIA [id number] [address] [facility] [id number] [place] GLUCOSE GEST, 3 HOURon 04-04 Glucose 3 Hr post Unsp challenge [Mass/Vol] 163 mg/dL High 74-139 [facility] Comment on above: Order Comment: Polly gotti Type: BLOOD SPECIMEN Ordering Facility: [facility] Address: [address] [place] [address] Result Comment: [facility] Congress of Obstetricians and Gynecologists ([place]) guidelines state gestational diabetes mellitus is present when 2 or more of the plasma glucose concentrations meet or exceed the following levels: fastin mg/dl, 1 hr: 180 mg/dl, 2 hr: 155 mg/dl, and 3 hr: 140 mg/dl. Performed By: #### G TGSTF #### [facility] [id number] [address] [place] [address] [place] GLUCOSE GEST, FASTINGon 03-25 Glucose post fast [Mass/Vol] 101 mg/dL High 74-94 [facility] Comment on above: Order Comment: Polly gotti Type: BLOOD SPECIMEN Ordering Facility: [facility] Address: [address] [place] [address] Result Comment: [facility] Congress of Obstetricians and Gynecologists ([place]) guidelines state gestational diabetes mellitus is present when 2 or more of the plasma glucose concentrations meet or exceed the following levels: fastin mg/dl, 1 hr: 180 mg/dl, 2 hr: 155 mg/dl, and 3 hr: 140 mg/dl. Performed By: #### G TGSTF #### [id number] [address] [place] [address] [place] URINE OB DIP B/Oon 3 Glucose Ql (U) Negative Neg mg/dL [facility] Protein.monoclonal (U) [Mass/Vol] Negative Neg mg/dL [facility] CNPNon 03-26-2023 CNPN Telephone (OBGYWM) MEENAKSHI ORTA ([id number]) 1985 F Date Time Provider Department 03/26/23 GUERO ESTRELLA During your visit today, we recorded the following information about you: Emily Odom RN 03/26/2023 11:45 AM Signed Breast pump order received from [employer]. To KJ to sign. Emily Mendes RN, RN 03/29/2023 8:39 AM Signed Order signed and faxed. Emily Odom RN Allergies As of Date: 03/26/2023 Noted Allergy Reaction AMOXICILLIN 11/09/2010 4 - Hives PENICILLINS 11/09/2010 4 - Hives SULFA (SULFONAMIDE ANTIBIOTICS) 11/09/2010 4 - Hives Date Reviewed: 03/13/2023 Reviewed by: Guero Estrella MD - Fully Assessed Reason for Visit: Breast Pump [Other] Prescriptions as of 03/29/2023 - prental multivitamin 27 mg iron- 800 mcg tablet Take 1 tablet by mouth once daily. Problem List As Of Date 03/26/2023 Noted Resolved PMS (premenstrual syndrome) [N94.3] 03/19/2013 Atypical squamous cells cannot exclude high gra*08/21/2018 Advanced maternal age, 1st [O09.519] 10/05/2022 Cleft lip and palate [Q37.9] 10/05/2022 Supervision of high risk in second tr*02/06/2023 Encounter for follow-up ultrasound of cheryl*02/16/2023 Abnormal glucose complicating [O99.81*03/14/2023 Encounter Status:Closed by EMILY ODOM [facility] C[facility] Tele[facility] (OBGYWM) MEENAKSHI ORTA ([id number]) 1985 F Date Time Provider Department 03/14/23 SOLE VOGEL During your visit today, we recorded the following information about you: Emily Odom RN 03/14/2023 12:25 PM Signed ----- Message from Sole Vogel MD sent at 03/14/2023 12:18 PM EDT ----- Patient has an abnormal 1 hr gtt. Needs 3 hr. Please schedule. Allergies As of Date: 03/14/2023 Noted Allergy Reaction AMOXICILLIN 11/09/2010 4 - Hives PENICILLINS 11/09/2010 4 - Hives SULFA (SULFONAMIDE ANTIBIOTICS) 11/09/2010 4 - Hives Date Reviewed: 03/13/2023 Reviewed by: Guero Estrella MD - Fully Assessed Reason for Visit: Results [95] Prescriptions as of 03/19/2023 - prental multivitamin 27 mg iron- 800 mcg tablet Take 1 tablet by mouth once daily. Problem List As Of Date 03/14/2023 Noted Resolved PMS (premenstrual syndrome) [N94.3] 03/19/2013 Atypical squamous cells cannot exclude high gra*08/21/2018 Advanced maternal age, 3st [O09.519] 10/05/2022 Cleft lip and palate [Q37.9] 10/05/2022 Supervision of high risk in second tr*02/06/2023 Encounter for follow-up ultrasound of cheryl*02/16/2023 Abnormal glucose complicating [O99.81*03/14/2023 Encounter Status:Closed by EMILY ODOM RN on 03/19/23 Normal [facility] CBC W Auto Differential pane l (Bld)on 03-13-2023 Basophils (Bld) [#/Vol] 0.00 10*3/uL Normal <0.11 [facility] Comment on above: Order Comment: Speci men Type: SWAB Ordering Facility: [facility] Address: [address] Performed By: #### 3 6902-5, TRVAMP #### [facility] CLIA [id number] [address] [place] [address] [place] Basophils/100 WBC (Bld) 0.0 % Normal [facility] Comment on above: Order Comment: Speci men Type: SWAB Ordering Facility: [facility] Address: [address] Performed By: #### 3 6902-5, TRVAMP #### [facility] CLIA [id number] [address] [place] [address] [place] Differential cell count method Nom (Bld) Manual Normal [facility] Comment on above: Order Comment: Speci men Type: SWAB Ordering Facility: [facility] Address: [address] [place], [place] [address] Performed By: #### 3 6902-5, TRVAMP #### [facility] CLIA [id number] [facility] [place] [address] [place] Eosinophils (Bld) [#/Vol] 0.00 10*3/uL Normal <0.46 [facility] Comment on above: Order Comment: Speci men Type: SWAB Ordering Facility: [facility] Address: [address] Performed By: #### 3 6902-5, TRVAMP #### [facility] CLIA [id number] [address] [place] [address] [place] Eosinophils/100 WBC (Bld) 0.0 % Normal [facility] Comment on above: Order Comment: Speci men Type: SWAB Ordering Facility: [facility] Address: [address] [place], [place] [address] Performed By: #### 3 6902-5, TRVAMP #### [facility] CLIA [id number] [address] [place] [address] [place] Erythrocyte distribution width (RBC) [Ratio] 12.6 % Normal 11.5-15.0 [facility] Comment on above: Order Comment: Speci men Type: SWAB Ordering Facility: [facility] Address: [address] [place] [address] Performed By: #### 3 6902-5, TRVAMP #### [facility] CLIA [id number] [address] [place] [address] [place] Hematocrit (Bld) [Volume fraction] 36.3 % Normal 36.0-46.0 [facility] Comment on above: Order Comment: Speci men Type: SWAB Ordering Facility: [facility] Address: [address] [place] [address] Performed By: #### 3 6902-5, TRVAMP #### [facility] CLIA [id number] [address] [place] [address] [place] Hemoglobin (Bld) [Mass/Vol] 12.3 g/dL Normal 11.5-15.5 [facility] Comment on above: Order Comment: Speci men Type: SWAB Ordering Facility: [facility] Address: [address] [place] [address] Performed By: #### 3 6902-5, TRVAMP #### [facility] CLIA [id number] [address] [place] [address] [place] Lymphocytes (Bld) [#/Vol] 1.07 10*3/uL Normal 1.00-4.00 [facility] Comment on above: Order Comment: Speci men Type: SWAB Ordering Facility: [facility] Address: [address] [place] [address] Performed By: #### 3 6902-5, TRVAMP #### [facility] CLIA [id number] [address] [place] [address] [place] Lymphocytes/100 WBC (Bld) 9.6 % Normal [facility] Comment on above: Order Comment: Speci men Type: SWAB Ordering Facility: [facility] Address: [address] [place], [place] [address] Performed By: #### 3 6902-5, TRVAMP #### [facility] CLIA [id number] [address] [place] [address] [place] MCH (RBC) [Entitic mass] 30.1 pg Normal 26.0-34.0 [facility] Comment on above: Order Comment: Speci men Type: SWAB Ordering Facility: [facility] Address: [address] [place], [place] [address] Performed By: #### 3 6902-5, TRVAMP #### [facility] CLIA [id number] [address] [place] [address] [place] MCHC (RBC) [Mass/Vol] 33.9 g/dL Normal 30.5-36.0 [facility] Comment on above: Order Comment: Speci men Type: SWAB Ordering Facility: [facility] Address: [address] [place], [place] [address] Performed By: #### 3 6902-5, TRVAMP #### [facility] CLIA [id number] [address] [place] [address] [place] MCV (RBC) [Entitic vol] 88.8 fL Normal 80.0-100.0 [facility] Comment on above: Order Comment: Speci men Type: SWAB Ordering Facility: [facility] Address: [address] [place], [place] [address] Performed By: #### 3 6902-5, TRVAMP #### [facility] CLIA [id number] [address] [place] [address] [place] Metamyelocytes/100 WBC (Bld) 0.9 % Normal [facility] Comment on above: Order Comment: Speci men Type: SWAB Ordering Facility: [facility] Address: [address] Performed By: #### 3 6902-5, TRVAMP #### [facility] CLIA [id number] [address] [place] [address] [place] Monocytes (Bld) [#/Vol] 0.29 10*3/uL Normal <0.87 [facility] Comment on above: Order Comment: Speci men Type: SWAB Ordering Facility: [facility] Address: [address] Performed By: #### 3 6902-5, TRVAMP #### [facility] CLIA [id number] [address] [place] [address] [place] Monocytes/100 WBC (Bld) 2.6 % Normal [facility] Comment on above: Order Comment: Speci men Type: SWAB Ordering Facility: [facility] Address: [address] Performed By: #### 3 6902-5, TRVAMP #### [facility] CLIA [id number] [address] [place] [address] [place] Neutrophils (Bld) [#/Vol] 9.72 10*3/uL High 1.45-7.50 [facility] Comment on above: Order Comment: Speci men Type: SWAB Ordering Facility: [facility] Address: [address] [place] [address] Performed By: #### 3 6902-5, TRVAMP #### [facility] CLIA [id number] [address] [place] [address] [place] Neutrophils/100 WBC (Bld) 86.9 % Normal [facility] Comment on above: Order Comment: Speci men Type: SWAB Ordering Facility: [facility] Address: [address] Performed By: #### 3 6902-5, TRVAMP #### [facility] CLIA [id number] [address] [place] [address] [place] Nucleated RBC (Bld) [#/Vol] 10*3/uL Normal <0.01 [facility] Comment on above: Order Comment: Speci men Type: SWAB Ordering Facility: [facility] Address: [address] [place] [address] Performed By: #### 3 6902-5, TRVAMP #### [facility] CLIA [id number] [address] [place] [address] [place] Nucleated RBC/100 WBC (Bld) [Ratio] 0.0 /100 WBC Normal [facility] Comment on above: Order Comment: Speci men Type: SWAB Ordering Facility: [facility] Address: [address] [place] [address] Performed By: #### 3 6902-5, TRVAMP #### [facility] CLIA [id number] [address] [place] [address] [place] Ovalocytes LM Ql (Bld) Few Normal [facility] Comment on above: Order Comment: Speci men Type: SWAB Ordering Facility: [facility] Address: [address] [place], [place] [address] Performed By: #### 3 6902-5, TRVAMP #### [facility] CLIA [id number] [address] [place] [address] [place] Platelet mean volume (Bld) [Entitic vol] 9.4 fL Normal 9.0-12.7 [facility] Comment on above: Order Comment: Speci men Type: SWAB Ordering Facility: [facility] Address: [address] [place], [place] [address] Performed By: #### 3 6902-5, TRVAMP #### [facility] CLIA [id number] [address] [place] [address] [place] Platelets (Bld) [#/Vol] 223 10*3/uL Normal 150-400 [facility] Comment on above: Order Comment: Speci men Type: SWAB Ordering Facility: [facility] Address: [address] Performed By: #### 3 6902-5, TRVAMP #### [facility] CLIA [id number] [address] [place] [address] [place] Platelets Estimate (Bld) [#/Vol] Adequate Normal [facility] Comment on above: Order Comment: Speci men Type: SWAB Ordering Facility: [facility] Address: [address] [place], [place] [address] Performed By: #### 3 6902-5, TRVAMP #### [facility] CLIA [id number] [address] [place] [address] [place] Polychromasia LM Ql (Bld) Slight Normal [facility] Comment on above: Order Comment: Speci men Type: SWAB Ordering Facility: [facility] Address: [address] Performed By: #### 3 6902-5, TRVAMP #### [facility] CLIA [id number] [address] [place] [address] [place] RBC (Bld) [#/Vol] 4.09 10*6/uL Normal 3.90-5.20 [facility] Comment on above: Order Comment: Speci men Type: SWAB Ordering Facility: [facility] Address: [address] Performed By: #### 3 6902-5, TRVAMP #### [facility] CLIA [id number] [address] [place] [address] [place] RED CELL MORPH Reviewed: see results of individual morphologies Normal [facility] Comment on above: Order Comment: Speci men Type: SWAB Ordering Facility: [facility] Address: [address] Performed By: #### 3 6902-5, TRVAMP #### [facility] CLIA [id number] [address] [place] [address] [place] WBC (Bld) [#/Vol] 11.19 10*3/uL High 3.70-11.00 [facility] Comment on above: Order Comment: Speci men Type: SWAB Ordering Facility: [facility] Address: [address] [place] [address] Performed By: #### 3 6902-5, TRVAMP #### [facility] CLIA [id number] [facility] [place] [address] [place] WBC Left Shift Ql (Bld) Present Normal [facility] Comment on above: Order Comment: Speci men Type: SWAB Ordering Facility: [facility] Address: [address] [place] [address] Performed By: #### 3 6902-5, TRVAMP #### [facility] CLIA [id number] [facility] [place] [address] [place] GEST GLUC SCREEN, 1-HR, 50 G M, NON-FASTINGon 03-13-2023 Glucose [Mass/Vol] 137 mg/dL High 74-134 [facility] Comment on above: Order Comment: Speci men Type: BLOOD SPECIMEN Ordering Facility: [facility] Address: [address] [place] [address] Result Comment: [facility] Congress of Obstetricians and Gynecologists (Jonathan/Elisabeth) guidelines state a gestational diabetes mellitus positive screen is made, in women not previously diagnosed with overt diabetes, when the 1 hr plasma glucose level is equal to or above 140 mg/dL. The [facility] [employer] [facility] recommends a 135 mg/dL cutoff. Performed By: #### G TGSTF #### [facility] CLIA [id number] [address] [place] [address] [place] Reagin and Treponema pallidu m IgG and IgM [Interp]on 03-13-2023 T. pallidum IgG+IgM IA Ql (S) Non-Reactive Normal Nonreactive [facility] Comment on above: Order Comment: Speci men Type: BLOOD SPECIMENOrdering Facility: [facility] Address: [address] [place] [address] Performed By: #### 7 3752-8 ####[facility] [id number] [address] [place] Reagin+T pallidum IgG+IgM Se rPl-Impon 03-13-2023 Reagin and Treponema pallidum IgG and IgM [Interp] Cannot exclude recent Treponemal infection if specimen collected within 7-10 days after appearance of suspect lesions or 2-3 weeks after an exposure. Clinical correlation is required. Normal [facility] Comment on above: Order Comment: Speci men Type: BLOOD SPECIMENOrdering Facility: [facility] Address: [address] [place] [address] Performed By: #### 7 3752-8 ####[facility] [id number] [place] [address] [place] URINE OB DIP B/Oon 3 Glucose Ql (U) Negative Neg mg/dL [facility] Protein.monoclonal (U) [Mass/Vol] trace Neg mg/dL [facility] OBSTETRIC ULTRASOUND WHIon 0 02-13-2023 [facility] CNPNon 01-11-2023 CNPN Telephone (OBGYWM) MEENAKSHI ORTA ([id number]) 1985 F Date Time Provider Department 01/11/23 VILMA HERNANDEZ OBGYWM During your visit today, we recorded the following information about you: Prudence Niño LPN 01/11/2023 10:29 AM Signed ----- Message from Vilma Hernandez MD sent at 01/11/2023 10:18 AM EDT ----- Add to record Notify pt of unremarkable anatomy but incomplete due to position if not already notified - needs repeat US in 2-4 weeks thanks Prudence Niño LPN 01/11/2023 10:30 AM Signed Message left for pt to contact the office for results and to scheduled follow up scan. Prudence Niño LPN' Emily Odom RN 01/12/2023 3:09 PM Signed Please file order for f/u anatomy u/s. Vilma Portillo RN, MD 01/12/2023 3:35 PM Signed filed Allergies As of Date: 01/11/2023 Noted Allergy Reaction AMOXICILLIN 11/09/2010 4 - Hives PENICILLINS 11/09/2010 4 - Hives SULFA (SULFONAMIDE ANTIBIOTICS) 11/09/2010 4 - Hives Date Reviewed: 01/09/2023 Reviewed by: Guero Estrella MD - Fully Assessed Reason for Visit: Results [95] Primary Visit Diagnosis:Encounter for follow-up ultrasound of anatomy [Z36.2] Order(s):OBSTETRIC ULTRASOUND [facility] [[id number]] Order #: [id number]: 1 FUTURE Prescriptions as of 01/15/2023 - prental multivitamin 27 mg iron- 800 mcg tablet Take 1 tablet by mouth once daily. 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 Encounter Status:Closed by EMILY ODOM RN on 01/15/23 Normal [facility] OBSTETRIC ULTRASOUND WHIon 0 01-09-2023 [facility] URINE OB DIP B/Oon Glucose Ql (U) Negative Neg mg/dL [facility] Protein.monoclonal (U) [Mass/Vol] trace Neg mg/dL [facility] URINE OB DIP B/Oon Glucose Ql (U) Negative Neg mg/dL [facility] Protein.monoclonal (U) [Mass/Vol] Negative Neg mg/dL [facility] CBC panel Auto (Bld)on 11-13 Erythrocyte distribution width (RBC) [Ratio] 12.5 % Normal 11.5-15.0 [facility] Comment on above: Order Comment: Speci men Type: BLOOD SPECIMEN Order[facility] Facility: [facility] Address: [address] [place] [address] Performed By: #### G TGSTF #### [id number] [address] [place] [address] [place] Hematocrit (Bld) [Volume fraction] 35.6 % Low 36.0-46.0 [facility] Comment on above: Order Comment: Speci men Type: BLOOD SPECIMEN Ordering Facility: [facility] Address: [address] [place] [address] Performed By: #### G TGSTF #### [facility] [id number] [address] [place] [address] [place] Hemoglobin (Bld) [Mass/Vol] 12.6 g/dL Normal 11.5-15.5 [facility] Comment on above: Order Comment: Speci men Type: BLOOD SPECIMEN Ordering Facility: [facility] Address: [address] [place] [address] Performed By: #### G TGSTF #### [facility] [id number] [address] [place] [address] [place] MCH (RBC) [Entitic mass] 29.8 pg Normal 26.0-34.0 [facility] Comment on above: Order Comment: Speci men Type: BLOOD SPECIMEN Ordering Facility: [facility] Address: [address] [place] [address] Performed By: #### G TGSTF #### [facility] [id number] [address] [place] [address] [place] MCHC (RBC) [Mass/Vol] 35.4 g/dL Normal 30.5-36.0 [facility] Comment on above: Order Comment: Speci men Type: BLOOD SPECIMEN Ordering Facility: [facility] Address: [address] [place] [address] Performed By: #### G TGSTF #### [facility] CLIA [id number] [address] [place] [address] [place] MCV (RBC) [Entitic vol] 84.2 fL Normal 80.0-100.0 [facility] Comment on above: Order Comment: Speci men Type: BLOOD SPECIMEN Ordering Facility: [facility] Address: [address] [place] [address] Performed By: #### G TGSTF #### [facility] CLIA [id number] [address] [place] [address] [place] Nucleated RBC (Bld) [#/Vol] 10*3/uL Normal <0.01 [facility] Comment on above: Order Comment: Speci men Type: BLOOD SPECIMEN Ordering Facility: [facility] Address: [address] [place] [address] Performed By: #### G TGSTF #### [facility] CLIA [id number] [address] [place] [address] [place] Platelet mean volume (Bld) [Entitic vol] 8.3 fL Low 9.0-12.7 [facility] Comment on above: Order Comment: Speci men Type: BLOOD SPECIMEN Ordering Facility: [facility] Address: [address] [place] [address] Performed By: #### G TGSTF #### [facility] CLIA [id number] [address] [place] [address] [place] Platelets (Bld) [#/Vol] 282 10*3/uL Normal 150-400 [facility] Comment on above: Order Comment: Speci men Type: BLOOD SPECIMEN Ordering Facility: [facility] Address: [address] [place] [address] Performed By: #### G TGSTF #### [facility] [id number] [address] [place] [address] [place] RBC (Bld) [#/Vol] 4.23 10*6/uL Normal 3.90-5.20 [facility] Comment on above: Order Comment: Speci men Type: BLOOD SPECIMEN Ordering Facility: [facility] Address: [address] [place] [address] Performed By: #### G TGSTF #### [facility] [id number] [address] [place] [address] [place] WBC (Bld) [#/Vol] 10.76 10*3/uL Normal 3.70-11.00 [facility] Comment on above: Order Comment: Speci men Type: BLOOD SPECIMEN Ordering Facility: [facility] Address: [address] [place] [address] Performed By: #### G TGSTF #### [facility] [id number] [address] [place] [address] [place] HBV surface Ag Ser Qlon 10-24 HBV surface Ag Ql (S) Negative Normal Negative [facility] Comment on above: Order Comment: Speci men Type: BLOOD SPECIMENOrdering Facility: [facility] Address: [address] [place] [address] Performed By: #### 7 3752-8, 89308-2, 5195-3 ####[facility] [id number] [place] [address] [place] HCV Ab Ser Qlon 11-13-2022 HCV Ab Ql (S) Negative Normal Negative [facility] Comment on above: Order Comment: Speci men Type: SWAB Ordering Facility: [facility] Address: [address] [place] [address] Result Comment: The result suggests no evidence of active infection with Hepatitis C virus. Should recent infection be suspected, repeat testing may be considered 4-6 weeks after this draw. Performed By: #### 3 6902-5, TRJOSE #### [facility] CLIA [id number] [address] [place] HIV 1+2 Ab IA Qlon 3 HIV 1 and 2 Ab IA.rapid Nom Normal [facility] Comment on above: Order Comment: Speci men Type: BLOOD SPECIMENOrdering Facility: [facility] Address: [address] [place] [address] Result Comment: Test not indicated. Performed By: #### 7 3752-8, 37978-3, 5195-3 ####[facility] [id number] [address] [place] HIV 1+2 Ab+HIV1 p24 Ag IA Ql Non-Reactive Normal Nonreactive [facility] Comment on above: Order Comment: Speci men Type: BLOOD SPECIMENOrdering Facility: [facility] Address: [address] [place] [address] Performed By: #### 7 3752-8, 20614-0, 5195-3 ####[facility] [id number] [address] [place] HIVINT Normal [facility] Comment on above: Order Comment: Speci men Type: BLOOD SPECIMENOrdering Facility: [facility] Address: [address] [place] [address] Result Comment: No e vidence of HIV-1 or HIV-2 infection. Should recent infection be suspected, repeat testing may be considered 2-3 weeks after this draw. [place] Rev. Code 3701.243(E): This information has been disclosed to you from confidential records protected from disclosure by state law. ???You shall make no further disclosure of this information without the specific, written, and informed release of the individual to whom it pertains or as otherwise permitted by state law. A general authorization for the release of medical or other information is not sufficient for the purpose of the release of HIV test results or diagnoses. Performed By: #### 7 3752-8, 41737-2, 5195-3 ####[facility] [id number] [address] HbA1c (Bld)on 11-13-2022 Average glucose Estimated from glycated hemoglobin (Bld) [Mass/Vol] 103 mg/dL Normal [facility] Comment on above: Order Comment: Speci men Type: BLOOD SPECIMENOrdering Facility: [facility] Address: [address] [place] [address] Result Comment: eAG: (Estimated average glucose) is a calculated value from HgbA1c and is retail customer service representative of the average blood glucose level in the last 2-3 month period. Performed By: #### 5 5454-3 ####[facility] [id number] [address] HbA1c (Bld) [Mass fraction] 5.2 % Normal 4.3-5.6 [facility] Comment on above: Order Comment: Speci men Type: BLOOD SPECIMENOrdering Facility: [facility] Address: [address] [place] [address] Result Comment: [place] Diabetes Association guidelines indicate that patients with HgbA1c in the range 5.7-6.4% are at increased risk for development of diabetes, and intervention by lifestyle modification may be beneficial. HgbA1c greater or equal to 6.5% is considered diagnostic of diabetes. Performed By: #### 5 5454-3 ####[facility] [id number] [address] [place] LIPID PANEL, NONFASTINGon Cholesterol [Mass/Vol] 198 mg/dL Normal <200 [facility] Comment on above: Order Comment: Speci men Type: SWAB Ordering Facility: [facility] Address: [address] [place] [address] Result Comment: <200 mg/dL, Desirable 200-239 mg/dL, Borderline high >239 mg/dL, High Performed By: #### 3 6902-5, TRVAMP #### [facility] CLIA [id number] [address] HDL CHOLESTEROL, NF 82 mg/dL Normal >39 [facility] Comment on above: Order Comment: Speci men Type: SWAB Ordering Facility: [facility] Address: [address] [place] [address] Result Comment: 40-5 9 mg/dL, Acceptable >59 mg/dL, High: Negative risk factor for coronary heart disease <40 mg/dL, Low: Positive risk factor for coronary heart disease Performed By: #### 3 6902-5, TRVAMP #### [facility] CLIA [id number] [address] LDL CHOLESTEROL, NF 95 mg/dL Normal <100 [facility] Comment on above: Order Comment: Polly men Type: SWAB Ordering Facility: [facility] Address: [address] [address] Result Comment: <100 mg/dL, Optimal 100-129 mg/dL, Near optimal/above optimal 130-159 mg/dL, Borderline high 160-189 mg/dL, High >189 mg/dL, Very high Secondary prevention optimal LDL Cholesterol levels are recommended to be < 70 mg/dL Performed By: #### 3 6902-5, TRVAMP #### [facility] CLIA [id number] [address] LDL/HDL RATIO, NF 1.16 mg/dL Normal <2.54 [facility] Comment on above: Order Comment: Boweni men Type: SWAB Ordering Facility: [facility] Address: [address] [place] [address] Result Comment: Jimy prince: 1. National Cholesterol Education Program ATP III Guideline At-A-Glance Quick Desk Reference: National Heart, Lung, and Blood [place]. National Institutes of Health. 2001: NIH Publication No. 01-3305. 2. An International Atherosclerosis Society position paper: global recommendations for the management of dyslipidemia: executive summary, Atherosclerosis. 2014: 232(2):410-413. Performed By: #### 3 6902-5, TRJOSE #### [facility] CLIA [id number] [address] [place] NON HDL CHOL, NF 116 mg/dL Normal <130 [facility] Comment on above: Order Comment: Speci men Type: SWAB Ordering Facility: [facility] Address: [address] [address] Result Comment: <130 mg/dL, Optimal 130-159 mg/dL, Near optimal/above optimal 160-189 mg/dL, Borderline high 190-219 mg/dL, High >219 mg/dL, Very high Secondary prevention optimal non HDL Cholesterol levels are recommended to be <100 mg/dL Performed By: #### 3 6902-5, TRVAGORDON #### [facility] CLIA [id number] [address] OF [facility] T CHOL/HDL RATIO NF 2.41 mg/dL Normal <5.10 [facility] Comment on above: Order Comment: Boweni men Type: SWAB Ordering Facility: [facility] Address: [address] [place] [address] Performed By: #### 3 6902-5, TRVAGORDON #### [facility] CLIA [id number] [address] [place] [address] [place] TRIGLYCERIDES, NF 103 mg/dL Normal <150 [facility] Comment on above: Order Comment: Speci men Type: SWAB Ordering Facility: [facility] Address: [address] [address] Result Comment: <150 mg/dL, Normal 150-199 mg/dL, Borderline high 200-499 mg/dL, High >499 mg/dL, Very high Performed By: #### 3 6902-5, TRVAMP #### [facility] CLIA [id number] [address] [id number] [place] VLDL CHOLESTEROL, NF 21 mg/dL Normal <30 [facility] Comment on above: Order Comment: Speci men Type: SWAB Ordering Facility: [facility] Address: [address] [place] [address] Performed By: #### 3 6902-5, TRVAMP #### [facility] CLIA [id number] [address] [place] [address] [place] NUCHAL TRANSLUCENCY WHIon [facility] RUBELLA IGG ABon 11-13-2022 RUBELLA IGG AB, QUAL Positive Normal Positive [facility] Comment on above: Order Comment: Polly ana maría Type: BLOOD SPECIMENOrdering Facility: [facility] Address: [address] [place] [address] Result Comment: The result suggests recent or past exposure to Rubella virus or history of Rubella vaccination. Positive result may also be seen due to presence of passively-transferred antibodies. Please correlate with patient's history. Performed By: #### R UBIGG ####[facility] [id number] [place] [address] [place] Reagin and Treponema pallidu m IgG and IgM [Interp]on 11-13-2022 SYPHILIS INTERPRETATION Cannot exclude recent Treponemal infection if specimen collected within 7-10 days after appearance of suspect lesions or 2-3 weeks after an exposure. Clinical correlation is required. Normal [facility] Comment on above: Order Comment: Speci men Type: BLOOD SPECIMENOrdering Facility: [facility] Address: [address] [place], [place] [address] Performed By: #### 7 3752-8, 43822-8, 5195-3 ####[facility] [id number] [address] [place] T. pallidum IgG+IgM IA Ql (S) Non-Reactive Normal Nonreactive [facility] Comment on above: Order Comment: Speci men Type: BLOOD SPECIMENOrdering Facility: [facility] Address: [address] [place] [address] Performed By: #### 7 3752-8, 52304-1, 5195-3 ####[facility] [id number] MARSHALChelo [facility] [id number] [address] [place] TYPE + SCREEN PRENATALon ABO B Normal [facility] Comment on above: Order Comment: Speci men Type: BLOOD SPECIMEN Ordering Facility: [facility] Address: [address] [place] [address] Performed By: #### G TGSTF #### [facility] CLIA [id number] [address] [place] [address] [place] HISTORICAL AB SCR STATUS Negative Normal [facility] Comment on above: Order Comment: Speci men Type: BLOOD SPECIMEN Ordering Facility: [facility] Address: [address] [place] [address] Performed By: #### G TGSTF #### [facility] CLIA [id number] [address] [place] [address] [place] Rh Nom (Bld) Positive Normal [facility] Comment on above: Order Comment: Speci men Type: BLOOD SPECIMEN Ordering Facility: [facility] Address: [address] [place] [address] Performed By: #### G TGSTF #### [id number] [address] [place] [address] [place] TYPE AND SCREEN EXPIRATION 11/16/2022 23:59 Normal [facility] Comment on above: Order Comment: Speci men Type: BLOOD SPECIMEN Ordering Facility: [facility] Address: [address] [place] [address] Performed By: #### G TGSTF #### [facility] CLIA [id number] [address] [place] [address] [place] URINE OB DIP B/Oon 3 Glucose Ql (U) Negative Neg mg/dL [facility] Protein.monoclonal (U) [Mass/Vol] Negative Neg mg/dL [facility] CNCOon 10-25-2022 CNCO Letter Text Normal [facility] Bacteria Ur Culton 3 Bacteria identified Cx Nom (U) ORGANISM ID: 1 10,000 -<50,000 CFU/ml Normal urogenital tom Normal [facility] Comment on above: Performed By: #### 6 30-4 ####[facility] [id number] [place] [address] [place] C. trachomatis+N. gonorrhoea e DNA STEPHANIE+probe Ql (Unsp spec)on 10-13-2022 C. trachomatis DNA STEPHANIE+probe Ql (Unsp spec) Negative Normal Negative for Chlamydia trachomatis by amplificaton [facility] Comment on above: Order Comment: Speci men Type: SWAB Ordering Facility: [facility] Address: [address] [place] [address] Performed By: #### 3 6902-5, TRVAMP #### [facility] CLIA [id number] [address] [place] [address] [place] N. gonorrhoeae DNA STEPHANIE+probe Ql (Unsp spec) Negative Normal Negative for Neisseria gonorrhoeae by amplification [facility] Comment on above: Order Comment: Speci men Type: SWAB Ordering Facility: [facility] Address: [address] [place] [address] Performed By: #### 3 6902-5, TRVAMP #### [facility] CLIA [id number] [address] [place] [address] [place] HPV W/GENOTYPE THIN PREPon 0 10-13-2022 HPV 16 Ag Ql (Unsp spec) Negative Normal Negative for HPV DNA high risk type 16 by PCR [facility] Comment on above: Order Comment: Speci men Type: FLUID SPECIMENOrdering Facility: [facility] Address: [address] [place] [address] Performed By: #### H PVHRT ####[facility] [id number] [place] [address] [place] HPV 18 Ag Ql (Unsp spec) Negative Normal Negative for HPV DNA high risk type 18 by PCR [facility] Comment on above: Order Comment: Speci men Type: FLUID SPECIMENOrdering Facility: [facility] Address: [address] [place] [address] Performed By: #### H PVHRT ####[facility] [id number] [place] [address] [place] HPV 31+33+35+39+45+51+52 +56+58+59+66+68 DNA STEPHANIE+probe Ql (Cvx) Negative for HPV DNA high risk types: 31,33,35,39,45,51,52 ,56,58,59,66,68 by PCR. Normal Negative for HPV DNA high risk types: 31,33,35,39,45,51 ,52,56,58,59,66,6 8 by PCR. [facility] Comment on above: Order Comment: Speci men Type: FLUID SPECIMENOrdering Facility: [facility] Address: [address] [place] [address] Performed By: #### H PVHRT ####[facility] [id number] [place] [address] [place] PAP TESTon 10-13-2022 CASE REPORT Normal [facility] Comment on above: Order Comment: Speci men Type: BLOOD SPECIMEN Ordering Facility: [facility] Address: [address] [place] [address] Result Comment: Gyne cologic Cytology Report Case: [id number] Authorizing Provider: Guero Estrella MD Collected: 10/13/2022 03:30 PM Ordering Location: OB/Gynecology Received: 10/13/2022 04:11 PM First Screen: Fidelina De León, CT, ASCP Rescreen: Isadora Horowitz CT, ASCP Specimen: Pap Test, ThinPrep, Cervix Performed By: #### G TGSTF #### [facility] CLIA [id number] [address] [place] [address] [place] CLINICAL HISTORY, CYTOLOGY, DISPATCH MACHINE RUNNER Other (Specify) Normal [facility] Comment on above: Order Comment: Speci men Type: BLOOD SPECIMEN Ordering Facility: [facility] Address: [address] [place] [address] Result Comment: preg nant Performed By: #### G TGSTF #### [facility] CLIA [id number] [address] [place] [address] [place] CYTOLOGY INTERPRETATION PAP Normal [facility] Comment on above: Order Comment: Speci men Type: BLOOD SPECIMEN Ordering Facility: [facility] Address: [address] [place] [address] Result Comment: Nega tive for Intraepithelial lesion or malignancy. Performed By: #### G TGSTF #### [facility] CLIA [id number] [address] [place] [address] FINAL DIAGNOSIS A - Cervix Normal [facility] Comment on above: Order Comment: Speci men Type: BLOOD SPECIMEN Ordering Facility: [facility] Address: [address] [place] [address] Result Comment: Sati sfactory for interpretation Negative for Intraepithelial lesion or malignancy. Predominance of coccobacilli consistent with shift in vaginal tom Performed By: #### G TGSTF #### [facility] CLIA [id number] [address] [place] [address] OF [facility] FINAL PERFORMING LAB Normal [facility] Comment on above: Order Comment: Speci men Type: BLOOD SPECIMEN Ordering Facility: [facility] Address: [address] [place] [address] Result Comment: Tech nical component, dramatic reader screening performed at [facility], [address] [facility] [address] CLIA# [id number] Diagnostic interpretation performed at [facility], [address] [facility] [address] CLIA# [id number] Electrolytic Etcher: lOman Perez M.D. Performed By: #### G TGSTF #### [facility] CLIA [id number] [address] [place] [address] [place] HPV REFLEX Auto HPV Normal [facility] Comment on above: Order Comment: Speci men Type: BLOOD SPECIMEN Ordering Facility: [facility] Address: [address] [place] [address] Performed By: #### G TGSTF #### [facility] CLIA [id number] [address] [place] [address] [place] PAP DISCLAIMER COMMENT The Pap Smear is a screening test for cervical cancer. False negative results occur with all screening tests, emphasizing the need for rescreening at recommended intervals, and clinical correlation. Normal [facility] Comment on above: Order Comment: Speci men Type: BLOOD SPECIMEN Ordering Facility: [facility] Address: [address] [place] [address] Performed By: #### G TGSTF #### [facility] CLIA [id number] [address] [place] [address] [place] PAP COLLAR TACKER COMMENT This specimen has been analyzed by the ThinPrep Imaging System, an automated imaging and review system, which assists the laboratory in evaluating cells on ThinPrep Pap tests. Following automated imaging, selected larios from every slide are reviewed by a dramatic reader. Normal [facility] Comment on above: Order Comment: Speci men Type: BLOOD SPECIMEN Ordering Facility: [facility] Address: [address] [place] [address] Performed By: #### G TGSTF #### [facility] CLIA [id number] [address] [place] [address] [place] T VAGINALIS AMPLIFICATIONon 10-13-2022 T. vaginalis DNA STEPHANIE+probe Ql (Unsp spec) Negative Negative for Trichomonas vaginalis by amplification [facility] T. vaginalis DNA STEPHANIE+probe Ql (Unsp spec) Negative Normal Negative for Trichomonas vaginalis by amplification [facility] Comment on above: Order Comment: Speci men Type: SWAB Ordering Facility: [facility] Address: [address] [place] [address] Performed By: #### 3 6902-5, TRVAMP #### [facility] CLIA [id number] [address] [facility] [address] OF [facility] CNNURSEon 10-05-2022 CNNURSE Nurse Visit (OBGYWM) MEENAKSHI ORTA ([id number]) 1985 F Date Time Provider Department 10/05/22 2:30 PM NURSE [facility] OBGYWM During your visit today, we recorded the following information about you: Last Period 08/17/22 Braxton Maza RN 10/05/2022 3:08 PM Signed [facility] VISIT This Team Access Model visit is a phone encounter. It required patient-provider interaction for the medical decision making as documented below. Father of the baby involved. Patient is 37 years old. Advanced maternal age discussed. Noninvasive and invasive testing options discussed. Patient considering nuchal ultrasound and maternity 21 test. Contact information for [facility] given to patient to check on insurance coverage. Patient with cleft lip and palate. Patient was adopted so she does not know of any other history in her family of defects. Patient considering genetic carrier screening testing. Contact information for Darlene robertson given to patient to check on insurance coverage. TKRN Allergies As of Date: 10/05/2022 Noted Allergy Reaction AMOXICILLIN 11/09/2010 4 - Hives PENICILLINS 11/09/2010 4 - Hives SULFA (SULFONAMIDE ANTIBIOTICS) 11/09/2010 4 - Hives Date Reviewed: 10/05/2022 Reviewed by: Braxton Maza RN - Fully Assessed Reason for Visit: Care [86] Primary Visit Diagnosis:Advanced maternal age, primigravida, antepartum [O09.519] Other Visit Diagnosis:Cleft lip and palate [Q37.9] Prescriptions as of 10/05/2022 - prental multivitamin 27 mg iron- 800 mcg tablet Take 1 tablet by mouth once daily. Problem List As Of Date 10/05/2022 Noted Resolved PMS (premenstrual syndrome) [N94.3] 03/19/2013 Atypical squamous cells cannot exclude high gra*08/21/2018 Advanced maternal age, 1st [O09.519] 10/05/2022 Cleft lip and palate [Q37.9] 10/05/2022 Disposition: Return in 8 days (on 10/13/2022) for New OB with Dr. Estrella. Follow-up and Disposition History for Encounter Date Provider Department Center 10/05/2022 [id number] [facility] OBGY[facility] Ramy Grant Encounter Status:Closed by BRAXTON MAZA RN on 10/05/22 [facility] [place] Silas 09-25-2022 ARMANDO Telephone (OBGYWM) MEENAKSHI ORTA ([id number]) 1985 F Date Time Provider Department 09/25/22 GLENYS [facility] During your visit today, we recorded the following information about you: Glenys Ngo APRN.CNP 09/25/2022 7:01 AM Signed Please notify pt that she is and she can schedule her appts. Let her I said congratulations! ASHER Schwartz LPN 09/25/2022 8:56 AM Signed Message left asking pt to contact the office for results and to schedule her PNOB and NOB. Prudence Wilkinson RN 09/26/2022 9:10 AM Signed PNOB and NOB scheduled. Allergies As of Date: 09/25/2022 Noted Allergy Reaction AMOXICILLIN 11/09/2010 4 - Hives PENICILLINS 11/09/2010 4 - Hives SULFA (SULFONAMIDE ANTIBIOTICS) 11/09/2010 4 - Hives Date Reviewed: 08/15/2022 Reviewed by: Glenys Ngo APRN.ARCHITECTURE FACULTY MEMBER - Fully Assessed Reason for Visit: Results [95] Problem List As Of Date 09/25/2022 Noted Resolved PMS (premenstrual syndrome) [N94.3] 03/19/2013 Atypical squamous cells cannot exclude high gra*08/21/2018 Encounter Status:Closed by VICKI WILKINSON RN on 09/26/22 Normal [facility] B-HCG SerPl-aCncon 3 HCG.beta subunit Qn 8276.0 m[IU]/mL High <5.0 [facility] Comment on above: Order Comment: Speci men Type: BLOOD SPECIMENOrdering Facility: [facility] Address: [address] [place], [place] [address] Result Comment: MIMI TITATIVE HCG NORMAL RANGES Weeks of Gestation (Weeks Since LMP) 3 Weeks (5.8-71.2 mIU/mL) 4 Weeks (9.5-750 mIU/mL) 5 Weeks (217-7138 mIU/mL) 6 Weeks (158-92131 mIU/mL) 7 Weeks (3697-325312 mIU/mL) 8 Weeks (75117-712682 mIU/mL) 9 Weeks (05545-503643 mIU/mL) 10 Weeks (38626-739952 mIU/mL) 12 Weeks (57663-908489 mIU/mL) Referenced to 4th IS of [facility] Performed By: #### 2 1198-7 ####[facility] [id number] [place] [address] [place] CNPNon 09-22-2022 CNPN Telephone (OBGYWM) MEENAKSHI ORTA ([id number]) 1985 F Date Time Provider Department 09/22/22 MAGUI DEE During your visit today, we recorded the following information about you: Elizabeth Becerra RN 09/22/2022 9:49 AM Signed ----- Message from John Reyes sent at 09/22/2022 9:42 AM EDT ----- Regarding: Patient would like to have a blood test ordered Contact: Patient would like a blood test to be ordered to confirm . Please notify patient once order has been placed so that she can get lab work done. Elizabeth Becerra RN 09/22/2022 9:51 AM Signed Left message to call office. Elizabeth Wilkinson RN 09/22/2022 9:58 AM Signed Patient called. LMP 08/17/22. Took x1 +UPT and one that was unclear. HCG quant order pending. Denies any spotting, bleeding, or cramping. Ok to send patient a [email or web address][employer]cl message that the order was placed. Vicki Ngo APRN.CNP 09/22/2022 10:41 AM Signed Order signed, Mychart msg sent. Glenys Ngo APRN.CNP Allergies As of Date: 09/22/2022 Noted Allergy Reaction AMOXICILLIN 11/09/2010 4 - Hives PENICILLINS 11/09/2010 4 - Hives SULFA (SULFONAMIDE ANTIBIOTICS) 11/09/2010 4 - Hives Date Reviewed: 08/15/2022 Reviewed by: Glenys Ngo APRN.CNP - Fully Assessed Reason for Visit: [587] Primary Visit Diagnosis:Missed menses [N92.6] Order(s):HCG QUANTITATIVE [SQHCGQT] Order #: [id number] FUTURE Problem List As Of Date 09/22/2022 Noted Resolved PMS (premenstrual syndrome) [N94.3] 03/19/2013 Atypical squamous cells cannot exclude high gra*08/21/2018 Encounter Status:Closed by GLENYS NGO on 09/22/22 Normal [facility] CNOVon 08-15-2022 CNOV Office Visit (OBGYWM) MEENAKSHI ORTA ([id number]) 1985 F Date Time Provider Department 08/15/22 10:00 AM [facility] OBGYWM During your visit today, we recorded the following information about you: Blood pressure Weight Height Last Period 120/70 86.5 kg 1.626 m 07/20/22 Glenys Ngo APRN.ARCHITECTURE FACULTY MEMBER 08/15/2022 11:04 AM Signed Meenakshi is a 37 year old who presents for an annual gynecologic exam without complaints. Stopped taking OCP one year ago to try and conceive. Menses: cycles every 28-30 days and 4-5 days of flow. Contraception: none HPV vaccine: No Last Pap: 09/05/2019 normal HPV: 09/04/2019 negative History of abnormal pap: Yes Last mammogram: Never Sexually active: Yes History of STDS: None Time with current partner: 5 years Exercise: 4 times a week for 30-40 minutes. Type: walking and running Diet: no red meat Seatbelt use: Yes OB History T0 L0 SAB0 IAB0 Ectopic0 Multiple0 Live Births0 Hydrometer Calibrator History LMP: 07/20/2022, Having periods Age at Menarche: Age at First : Age at Menopause: Hydrometer Calibrator History Comments: Sexual Activity: Yes; Male Contraception: Pill PAST MEDICAL HISTORY Diagnosis Date Cleft lip and palate PMS (premenstrual syndrome) PAST SURGICAL HISTORY Procedure Laterality Date ANES INTRAORAL W/BIOPSY REPAIR CLEFT PALATE 1988 BONE GRAFT MAXILLA 1994 EXTENSIVE JAW SURGERY 2000 FAMILY HISTORY Adopted: Yes Problem Relation Age of Onset other (unknown) Mother patient is adopted other (unknown) Father patient is adopted SOCIAL HISTORY Social History Tobacco Use Smoking status: Former Smokeless tobacco: Never Vaping Use Vaping Use: Never used Substance Use Topics Alcohol use: Yes Comment: occasionally Drug use: No REVIEW OF SYSTEMS Abdomen: No abdominal pain, nausea, vomiting, diarrhea, or constipation. No bloating, early satiety, indigestion, or increased flatulence. Bladder: No dysuria, gross hematuria, urinary frequency, urinary urgency, or incontinence. Breast: No breast lumps, nipple d/c, overlying skin changes, redness or skin retraction. Allergies and current medication updated:Yes EXAM: BP 120/70 Ht 5' 4 (1.63m) Wt 190 lb 9.6 oz (86.5kg) LMP 07/20/2022 BMI 32.70 kg/(m2). GENERAL: pleasant, female in no apparent distress HEENT: Normocephalic, atraumatic, mucus membranes moist, and no lesions NECK: Supple, full range of motion, no adenopathy, and thyroid normal DERMATOLOGY: Normal, without lesions, non-icteric, and non-hirsute BREAST: soft, non-tender, symmetric, no dominant mass, normal nipple-areolar complex, no lymphadenopathy, and no nipple discharge CHEST: Normal inspiratory effort and Regular rate and rhythm ABDOMEN: soft, non-tender, and no masses PELVIC: external genitalia normal, normal Bartholin's glands, urethra, Pope's glands, no vulvar lesions, no cervical lesions, good vaginal support, physiologic discharge present, normal appearing perineal body and perianal region BIMANUAL: uterus normal size, shape and consistency, no adnexal masses, non-tender, and no cervical motion tenderness RECTOVAGINAL: deferred. NEURO: alert and oriented x3,exam grossly non-focal EXTREMITIES: normal ASSESSMENT/PLAN: 1) Health maintenance: Pap/HPV up to date. Nutrition, exercise and routine health maintenance exams reviewed. Trying to lose weight following quitting smoking last month. 2) Contraception: none. Trying to conceive. Educated on ovulation kits and cycle tracking. Discussed seeing physician in the future if unsuccessful for future steps. 3) STD screening: Declined STD check. 4) Follow up one year or sooner as needed Erick Kwong, student ERICA TEACHING PROVIDER (Physician/PA/SHIPPING AND RECEIVING ASSOCIATE) NOTE OF PERSONAL INVOLVEMENT IN CARE: I have personally seen and examined the patient and performed the medical decision-making components. I have reviewed the Advanced Practice Registered Nurse (SHIPPING AND RECEIVING ASSOCIATE) Student's documentation and verified the findings in the note as written. Any additions or changes are noted in bold/italics. Signature: Glenys Ngo Date: 08/15/2022 Time: 10:52 AM Referring Provider: SELF [200] Allergies As of Date: 08/15/2022 Noted Allergy Reaction AMOXICILLIN 11/09/2010 4 - Hives PENICILLINS 11/09/2010 4 - Hives SULFA (SULFONAMIDE ANTIBIOTICS) 11/09/2010 4 - Hives Date Reviewed: 08/15/2022 Reviewed by: Glenys Ngo APRN.ARCHITECTURE FACULTY MEMBER - Fully Assessed Reason for Visit: Yearly Exam [187] Primary Visit Diagnosis:Encounter for gynecological examination (general) (routine) without abnormal findings [Z01.419] Other Visit Diagnosis:Weight gain, abnormal [R63.5] Order(s):HCG QUAL UR B/O [[id number]] Order #: [id number] Problem List As Of Date 08/15/2022 Noted Resolved PMS (premenstrual syndrome) [N94.3] 03/19/2013 Atypical squamous cells cannot exclude high gra*02 (more content not included)... Normal [facility] HCG QUAL UR B/Oon 08-15-2022 status Negative neg - [facility] Quality Check Yes [facility] Vital Signs Date Time Vital Sign Value Performing Clinician Joyi vinod 05-24-2023 10:07-0500 Body weight 95.71 kg Sole Vogel MD Work Phone: [facility] 05-24-2023 10:07-0500 Diastolic blood pressure 88 mm[Hg] Sole Vogel MD Work Phone: [facility] 05-24-2023 10:07-0500 Systolic blood pressure 154 mm[Hg] Sole Vogel MD Work Phone: [facility] 05-08-2023 14:42-0500 Body weight 107.5 kg Sole Vogel MD Work Phone: [facility] 05-08-2023 14:42-0500 Diastolic blood pressure 88 mm[Hg] Sole Vogel MD Work Phone: [facility] 05-08-2023 14:42-0500 Systolic blood pressure 132 mm[Hg] Sole Vogel MD Work Phone: [facility] 04-25-2023 15:21-0400 Body weight 105.69 kg Magui Lyn MD Work Phone: [facility] 04-25-2023 15:21-0400 Diastolic blood pressure 82 mm[Hg] Magui Lyn MD Work Phone: [facility] 04-25-2023 15:21-0400 Systolic blood pressure 132 mm[Hg] Magui Lyn MD Work Phone: [facility] 04-10-2023 13:33-0400 Body weight 103.87 kg Sole Vogel MD Work Phone: [facility] 04-10-2023 13:33-0400 Diastolic blood pressure 74 mm[Hg] Sole Vogel MD Work Phone: [facility] 04-10-2023 13:33-0400 Systolic blood pressure 120 mm[Hg] Sole Vogel MD Work Phone: [facility] 03-28-2023 14:29-0400 Body weight 102.51 kg Torie Plotts SHIPPING AND RECEIVING ASSOCIATE.CNM Work Phone: [facility] 03-28-2023 14:29-0400 Diastolic blood pressure 80 mm[Hg] Torie Plotts SHIPPING AND RECEIVING ASSOCIATE.CNM Work Phone: [facility] 03-28-2023 14:29-0400 Systolic blood pressure 122 mm[Hg] Torie Plotts SHIPPING AND RECEIVING ASSOCIATE.CNM Work Phone: [facility] 03-13-2023 15:47-0400 Body weight 102.06 kg Guero Estrella MD Work Phone: [facility] 03-13-2023 15:47-0400 Diastolic blood pressure 78 mm[Hg] Guero Estrella MD Work Phone: [facility] 03-13-2023 15:47-0400 Systolic blood pressure 128 mm[Hg] Gureo Estrella MD Work Phone: [facility] 02-06-2023 13:29-0400 Body weight 97.98 kg Sloe Vogel MD Work Phone: [facility] 02-06-2023 13:29-0400 Diastolic blood pressure 70 mm[Hg] Sole Vogel MD Work Phone: [facility] 02-06-2023 13:29-0400 Systolic blood pressure 116 mm[Hg] Sole Vogel MD Work Phone: [facility] 01-09-2023 14:03-0400 Body weight 94.35 kg Guero Estrella MD Work Phone: [facility] 01-09-2023 14:03-0400 Diastolic blood pressure 72 mm[Hg] Guero Estrella MD Work Phone: [facility] 01-09-2023 14:03-0400 Systolic blood pressure 108 mm[Hg] Guero Estrella MD Work Phone: [facility] 01-09-2023 13:04-0400 Body height 162.6 cm Georgiana Vines MD Work Phone: [facility] 01-09-2023 13:04-0400 Body weight 94.35 kg Georgiana Vines MD Work Phone: [facility] 12-12-2022 13:25-0400 Body weight 92.17 kg Glenys [place] SHIPPING AND RECEIVING ASSOCIATE.ARCHITECTURE FACULTY MEMBER Work Phone: [facility] 12-12-2022 13:25-0400 Diastolic blood pressure 70 mm[Hg] Glenys [place] SHIPPING AND RECEIVING ASSOCIATE.ARCHITECTURE FACULTY MEMBER Work Phone: [facility] 12-12-2022 13:25-0400 Systolic blood pressure 118 mm[Hg] Glenys Mumtaz SHIPPING AND RECEIVING ASSOCIATE.ARCHITECTURE FACULTY MEMBER Work Phone: [facility] 11-13-2022 15:20-0400 Diastolic blood pressure 80 mm[Hg] Vilma Hernandez MD Work Phone: [facility] 11-13-2022 15:20-0400 Systolic blood pressure 120 mm[Hg] Vilma Hernandez MD Work Phone: [facility] 11-13-2022 14:39-0400 Body height 162.6 cm Pablo Shah MD Work Phone: [facility] 11-13-2022 14:39-0400 Body weight 90.27 kg Pablo Shah MD Work Phone: [facility] 10-13-2022 14:11-0400 Body height 162.6 cm Guero Estrella MD Work Phone: [facility] 10-13-2022 14:11-0400 Body weight 89.22 kg Guero Estrella MD Work Phone: [facility] 10-13-2022 14:11-0400 Diastolic blood pressure 62 mm[Hg] Guero Estrella MD Work Phone: [facility] 10-13-2022 14:11-0400 Systolic blood pressure 98 mm[Hg] Guero Estrella MD Work Phone: [facility] 08-15-2022 09:58-0500 Body height 162.6 cm Glenys Mumtaz SHIPPING AND RECEIVING ASSOCIATE.ARCHITECTURE FACULTY MEMBER Work Phone: [facility] 08-15-2022 09:58-0500 Body weight 86.46 kg Glenys [place] SHIPPING AND RECEIVING ASSOCIATE.ARCHITECTURE FACULTY MEMBER Work Phone: [facility] 08-15-2022 09:58-0500 Diastolic blood pressure 70 mm[Hg] Glenys [place] SHIPPING AND RECEIVING ASSOCIATE.ARCHITECTURE FACULTY MEMBER Work Phone: [facility] 08-15-2022 09:58-0500 Systolic blood pressure 120 mm[Hg] Glenys Mumtaz SHIPPING AND RECEIVING ASSOCIATE.ARCHITECTURE FACULTY MEMBER Work Phone: [facility] Encounters Encounter Date Encounter Type Care Provider Facility Start: 07-03-2023 End: 07-04-2023 ambulatory SOLE VOGEL Facility:[facility] Start: 06-26-2023 End: 01-02-2024 ambulatory SHERRY GARRETT Facility:[facility] Start: 05-24-2023 End: 05-24-2023 ambulatory SOLE VOGEL Facility:[facility] Start: 05-24-2023 End: 05-24-2023 Patient encounter procedure Sole Vogel MD Work Phone: OB/Gynecology Comment on above: Impaired glucose sal erance in , delivered (Primary Dx); Status post section routine follow-up Start: 05-15-2023 ambulatory Sole parisi MD Work Phone: OB/Gynecology Comment on above: Ob Delivery Note Start: 05-14-2023 ambulatory Sole parisi MD Work Phone: OB/Gynecology Comment on above: Cold symptoms Start: 05-10-2023 [facility] Comment on above: Population Health Na vigation Outreach (Peds/OB) Start: 05-08-2023 End: 05-09-2023 ambulatory SOLE VOGEL Facility:[facility] Start: 05-08-2023 End: 05-08-2023 Patient encounter procedure [facility] Work Phone: OB/Gynecology Comment on above: Macrosomia of fetus affecting management of mother in third trimester, single or unspecified fetus (Primary Dx); Uterine size-date discrepancy, third trimester; GDM (gestational diabetes mellitus), class A1; 37 weeks gestation of ; Obesity affecting in third trimester, unspecified obesity type Polyhydramnios in th ird trimester complication, single or unspecified fetus (Primary Dx); Gestational diabetes mellitus, class A1; AMA (advanced maternal age) multigravida 35+, third trimester; Encounter for supervision of normal first in third trimester Start: 05-03-2023 End: 05-04-2023 ambulatory SHERRY GARRETT Facility:[facility] Start: 04-25-2023 End: 04-25-2023 ambulatory MAGUI LYN Facility:[facility] Start: 04-25-2023 End: 04-25-2023 Patient encounter procedure Magui Lyn MD Work Phone: OB/Gynecology Comment on above: Polyhydramnios in th ird trimester complication, single or unspecified fetus (Primary Dx); Gestational diabetes mellitus, class A1; AMA (advanced maternal age) multigravida 35+, third trimester; 35 weeks gestation of Start: 04-12-2023 Telephone encounter Guero jacome MD Work Phone: OB/Gynecology Comment on above: OB-pain Start: 04-10-2023 End: 04-10-2023 ambulatory [facility] Facility:[facility] Start: 04-10-2023 End: 04-10-2023 Patient encounter procedure Sole Vogel MD Work Phone: OB/Gynecology Comment on above: 33 weeks gestation o f (Primary Dx); Need for influenza vaccination; Uterine size-date discrepancy, third trimester; GDM (gestational diabetes mellitus), class A1 Advanced maternal ag e, 1st , third trimester (Primary Dx); Supervision of high risk in third trimester; Encounter for ultrasound to check growth; 33 weeks gestation of ; Polyhydramnios in third trimester complication, single or unspecified fetus Start: 04-06-2023 ambulatory Torie castano SHIPPING AND RECEIVING ASSOCIATE.CNM Work Phone: OB/Gynecology Comment on above: One leg is swollen. Start: 04-04-2023 End: 04-05-2023 [facility] Facility:[facility] Start: 03-28-2023 End: 03-28-2023 [facility] Facility:[facility] Start: 03-28-2023 End: 03-28-2023 Patient encounter procedure Torie Isaacs SHIPPING AND RECEIVING ASSOCIATE.CNM Work Phone: OB/Gynecology Comment on above: 31 weeks gestation o f (Primary Dx); Supervision of high risk in third trimester Start: 03-26-2023 Telephone encounter Guero jacome MD Work Phone: OB/Gynecology Comment on above: Breast Pump Start: 03-19-2023 ambulatory Guero Whitney Work Phone: OB/Gynecology Comment on above: Medicine for cold Start: 03-14-2023 Orders Only Sole parisi MD Work Phone: OB/Gynecology Comment on above: Abnormal glucose com plicating (Primary Dx) Start: 03-13-2023 End: 03-14-2023 ambulatory SOLE VOGEL Facility:[facility] Start: 03-13-2023 End: 03-13-2023 Patient encounter procedure Guero Estrella MD Work Phone: OB/Gynecology Comment on above: Supervision of high risk in third trimester (Primary Dx); Advanced maternal age, 1st , third trimester; 29 weeks gestation of ; Need for vaccination Start: 02-13-2023 End: 02-14-2023 [facility] Facility:[facility] Start: 02-13-2023 End: 02-13-2023 Patient encounter procedure [facility] Work Phone: OB/Gynecology Comment on above: Encounter for follow -up ultrasound of anatomy Start: 02-06-2023 End: 02-06-2023 [facility] SHERRY GARRETT Facility:[facility] Start: 02-06-2023 End: 02-06-2023 Patient encounter procedure Sole Vogel MD Work Phone: OB/Gynecology Comment on above: Multigravida of adva nced maternal age in second trimester (Primary Dx); 24 weeks gestation of ; Encounter for supervision of normal first in second trimester; Supervision of high risk in second trimester; Atypical squamous cells cannot exclude high grade squamous intraepithelial lesion on cytologic smear of cervix (ASC-H) Start: 01-09-2023 End: 01-09-2023 [facility] Facility:[facility] Start: 01-09-2023 End: 01-09-2023 Patient encounter procedure Guero Estrella MD Work Phone: OB/Gynecology Comment on above: Multigravida of adva nced maternal age in second trimester (Primary Dx); 20 weeks gestation of Encounter for anatomic survey (Primary Dx); Advanced maternal age, 1st , first trimester; Multigravida of advanced maternal age in second trimester; 20 weeks gestation of Start: 12-12-2022 End: 12-13-2022 ambulatory [facility] Facility:[facility] Start: 12-12-2022 End: 12-12-2022 Patient encounter procedure Glenys Ngo SHIPPING AND RECEIVING ASSOCIATE.ARCHITECTURE FACULTY MEMBER Work Phone: OB/Gynecology Comment on above: 16 weeks gestation o f (Primary Dx) Start: 11-16-2022 ambulatory Vilma Whitney Work Phone: OB/Gynecology Comment on above: Question about prena kalpana vitamin Start: 11-13-2022 End: 11-14-2022 ambulatory GUERO ESTRELLA Facility:[facility] Start: 11-13-2022 End: 11-14-2022 ambulatory VILMA HERNANDEZ Facility:[facility] Start: 11-13-2022 End: 11-13-2022 Patient encounter procedure Vilma Hernandez MD Work Phone: OB/Gynecology Comment on above: 12 weeks gestation o f (Primary Dx); Advanced maternal age, 1st , first trimester Nuchal translucency of fetus on ultrasound (Primary Dx); Advanced maternal age, 1st , first trimester Start: 10-13-2022 End: 10-13-2022 ambulatory GUERO ESTRELLA Facility:[facility] Start: 10-13-2022 End: 10-13-2022 Patient encounter procedure Guero Estrella MD Work Phone: OB/Gynecology Comment on above: Advanced maternal ag e, 1st , first trimester (Primary Dx); Encounter for screening for malignant neoplasm of cervix; Special screening examination for human papillomavirus (HPV) Start: 10-05-2022 End: 10-05-2022 ambulatory SHERRY GARRETT Facility:[facility] Start: 10-05-2022 End: 10-05-2022 Nursing evaluation of patient and report Nurse Pnob [facility] Work Phone: OB/Gynecology Comment on above: Advanced maternal ag e, primigravida, antepartum (Primary Dx); Cleft lip and palate Start: 09-25-2022 Telephone encounter Glenys bazan SHIPPING AND RECEIVING ASSOCIATE.ARCHITECTURE FACULTY MEMBER Work Phone: OB/Gynecology Comment on above: Results Start: 09-22-2022 End: 09-23-2022 ambulatory GLENYS NGO Facility:[facility] Start: 09-22-2022 Telephone encounter Magui Lyn MD Work Phone: OB/Gynecology Comment on above: Start: 08-15-2022 End: 08-15-2022 ambulatory GLENYS NGO Facility:[facility] Start: 08-15-2022 End: 08-15-2022 Patient encounter procedure Glenys Ngo SHIPPING AND RECEIVING ASSOCIATE.ARCHITECTURE FACULTY MEMBER Work Phone: OB/Gynecology Comment on above: Encounter for gyneco logical examination (general) (routine) without abnormal findings (Primary Dx); Weight gain, abnormal Start: 08-15-2022 End: 08-15-2022 Patient encounter status Glenys Ngo SHIPPING AND RECEIVING ASSOCIATE.ARCHITECTURE FACULTY MEMBER Work Phone: OB/Gynecology Procedures Date Procedure Procedure Detail Performing Clinician Start: 05-08-2023 URINE OB DIP B/O Irma Vogel MD Work Phone: Start: 05-08-2023 Us preg uterus after 1st trimest 06/25 gestation Sole Vogel MD Work Phone: Start: 04-25-2023 URINE OB DIP B/O Magui Lyn MD Work Phone: Start: 04-10-2023 INFLUENZA VACCINE, A GE 6 MO - 64 YR, QUADRIVALENT (AFLURIA, FLULAVAL, FLUZONE) Sole Vogel MD Work Phone: Start: 04-10-2023 URINE OB DIP B/O Magui Lyn MD Work Phone: Start: 04-10-2023 Us preg uterus after 1st trimest 06/25 gestation Guero Estrella MD Work Phone: Start: 03-28-2023 URINE OB DIP B/O Robi Isaacs SHIPPING AND RECEIVING ASSOCIATE.CALIXTOM Work Phone: Start: 03-13-2023 URINE OB DIP B/O Guero Estrella MD Work Phone: Start: 02-13-2023 Us preg uterus after 1st trimest 06/25 gestation Vilma Hernandez MD Work Phone: Start: 01-09-2023 URINE OB DIP B/O Guero Estrella MD Work Phone: Start: 01-09-2023 Us preg uterus after 1st trimest 1/ gestation Vilma Hernandez MD Work Phone: Start: 12-12-2022 URINE OB DIP B/O Guero Estrella MD Work Phone: Start: 11-13-2022 Antibody screen SHERRY ADAMS Comment on above: Order Comment: Speci men Type: BLOOD SPECIMEN Ordering Facility: [facility] Address: [address] [place] [address] Performed By: #### G TGSTF #### [facility] CLIA [id number] [address] [place] [address] OF [facility] Start: 11-13-2022 URINE OB DIP B/O Vilma bliss MD Work Phone: Start: 11-13-2022 Us nuchal translucency 1st gestation Guero Estrella MD Work Phone: Start: 10-13-2022 Iadna trichomonas vaginalis amplified probe tech Guero Estrella MD Work Phone: Start: 08-15-2022 Urine test visual color cmprsn meths Glenys [place] SHIPPING AND RECEIVING ASSOCIATE.ARCHITECTURE FACULTY MEMBER Work Phone: Plan of Treatment Date Care Activity Detail Author Start: 03-13-2033 Urine microalbumin profile [facility] Start: 10-14-2027 HPV TESTING HPV TESTING [facility] Start: 10-14-2027 PAP TESTING PAP TESTING [facility] Start: 09-01-2024 HPV TESTING HPV TESTING [facility] Start: 09-01-2024 PAP TESTING PAP TESTING [facility] Start: 05-24-2023 End: 08-23-2023 GLUC SAL, 2-HR NON-GEST, 75 GM, FASTING GLUC SAL, 2-HR NON-GEST, 75 GM, FASTING Lab Routine Impaired glucose tolerance in , delivered Status post section routine follow-up Expected: 05/24/2023, Expires: 08/23/2023 [facility] Work Phone: Comment on above: Expected: 05/24/2023 , Expires: 08/23/2023 Start: 04-10-2023 End: 04-10-2024 OBSTETRIC ULTRASOUND WHI OBSTETRIC ULTRASOUND [facility] Anc Imaging Routine 33 weeks gestation of Uterine size-date discrepancy, third trimester GDM (gestational diabetes mellitus), class A1 Expected: 04/10/2023, Expires: 04/10/2024 [facility] Work Phone: Comment on above: Expected: 04/10/2023 , Expires: 04/10/2024 Start: 03-14-2023 End: 05-14-2023 GEST GLUC SAL, 3-HR, 100 GM, FASTING GEST GLUC SAL, 3-HR, 100 GM, FASTING Lab Routine Abnormal glucose complicating Expected: 03/14/2023, Expires: 05/14/2023 [facility] Work Phone: Comment on above: Expected: 03/14/2023 , Expires: 05/14/2023 Start: 03-13-2023 End: 03-13-2024 OBSTETRIC ULTRASOUND WHI OBSTETRIC ULTRASOUND [facility] Anc Imaging Routine Supervision of high risk in third trimester Advanced maternal age, 1st , third trimester Expected: 03/13/2023, Expires: 03/13/2024 [facility] Work Phone: Comment on above: Expected: 03/13/2023 , Expires: 03/13/2024 Start: 02-23-2023 Covid-19 Vaccine ( season) Covid-19 Vaccine () [facility] Start: 02-23-2023 Influenza vaccination C [facility] Start: 02-06-2023 End: 04-08-2023 CBC W Auto Differential panel - Blood CBC + DIFF Lab Routine Multigravida of advanced maternal age in second trimester 24 weeks gestation of Expected: 02/06/2023, Expires: 04/08/2023 [facility] Work Phone: Comment on above: Expected: 02/06/2023 , Expires: 04/08/2023 Start: 02-06-2023 End: 04-08-2023 GEST GLUC SCREEN, 1-HR, 50 GM, NON-FASTING GEST GLUC SCREEN, 1-HR, 50 GM, NON-FASTING Lab Routine Multigravida of advanced maternal age in second trimester 24 weeks gestation of Expected: 02/06/2023, Expires: 04/08/2023 [facility] Work Phone: Comment on above: Expected: 02/06/2023 , Expires: 04/08/2023 Start: 02-06-2023 End: 04-08-2023 SYPHILIS TOTAL W/REFLEX SYPHILIS TOTAL W/REFLEX Lab Routine Multigravida of advanced maternal age in second trimester 24 weeks gestation of Expected: 02/06/2023, Expires: 04/08/2023 [facility] Work Phone: Comment on above: Expected: 02/06/2023 , Expires: 04/08/2023 Start: 11-13-2022 End: 11-14-2023 OBSTETRIC ULTRASOUND WHI OBSTETRIC ULTRASOUND [facility] Anc Imaging Routine 12 weeks gestation of Advanced maternal age, 1st , first trimester Expected: 11/13/2022, Expires: 11/14/2023 [facility] Work Phone: Comment on above: Expected: 11/13/2022 , Expires: 11/14/2023 Start: 10-13-2022 End: 12-13-2022 CBC panel - Blood by Automated count CBC Lab Routine Advanced maternal age, 1st , first trimester Expected: 10/13/2022, Expires: 12/13/2022 [facility] Work Phone: Comment on above: Expected: 10/13/2022 , Expires: 12/13/2022 Start: 10-13-2022 End: 12-13-2022 Hemoglobin A1c in Blood HGB A1C Lab Routine Advanced maternal age, 1st , first trimester Expected: 10/13/2022, Expires: 12/13/2022 [facility] Work Phone: Comment on above: Expected: 10/13/2022 , Expires: 12/13/2022 Start: 10-13-2022 End: 12-13-2022 Hepatitis B virus surface Ag [Presence] in Serum HEP B SURF AG SCRN Lab Routine Advanced maternal age, 1st , first trimester Expected: 10/13/2022, Expires: 12/13/2022 [facility] Work Phone: Comment on above: Expected: 10/13/2022 , Expires: 12/13/2022 Start: 10-13-2022 End: 12-13-2022 Hepatitis C virus Ab [Presence] in Serum HEP C AB IA W/CONF SCRN Lab Routine Advanced maternal age, 1st , first trimester Expected: 10/13/2022, Expires: 12/13/2022 [facility] Work Phone: Comment on above: Expected: 10/13/2022 , Expires: 12/13/2022 Start: 10-13-2022 End: 12-13-2022 HIV 1+2 Ab [Presence] in Serum or Plasma by Immunoassay HIV 1 2 COMBO(AG/AB),WITH REFLEX TO DIFFERENTIATION Lab Routine Advanced maternal age, 1st , first trimester Expected: 10/13/2022, Expires: 12/13/2022 [facility] Work Phone: Comment on above: Expected: 10/13/2022 , Expires: 12/13/2022 Start: 10-13-2022 End: 12-13-2022 LIPID PANEL, NONFASTING LIPID PANEL, NONFASTING Lab Routine Advanced maternal age, 1st , first trimester Expected: 10/13/2022, Expires: 12/13/2022 [facility] Work Phone: Comment on above: Expected: 10/13/2022 , Expires: 12/13/2022 Start: 10-13-2022 End: 10-14-2023 NUCHAL TRANSLUCENCY WHI NUCHAL TRANSLUCENCY WHI Anc Imaging Routine Advanced maternal age, 1st , first trimester Expected: 10/13/2022, Expires: 10/14/2023 [facility] Work Phone: Comment on above: Expected: 10/13/2022 , Expires: 10/14/2023 Start: 10-13-2022 End: 12-13-2022 RUBELLA IGG AB RUBELLA IGG AB Lab Routine Advanced maternal age, 1st , first trimester Expected: 10/13/2022, Expires: 12/13/2022 [facility] Work Phone: Comment on above: Expected: 10/13/2022 , Expires: 12/13/2022 Start: 10-13-2022 End: 12-13-2022 SYPHILIS TOTAL W/REFLEX SYPHILIS TOTAL W/REFLEX Lab Routine Advanced maternal age, 1st , first trimester Expected: 10/13/2022, Expires: 12/13/2022 [facility] Work Phone: Comment on above: Expected: 10/13/2022 , Expires: 12/13/2022 Start: 10-13-2022 End: 12-13-2022 TYPE + SCREEN TYPE + SCREEN Blood Bank Routine Advanced maternal age, 1st , first trimester Expected: 10/13/2022, Expires: 12/13/2022 [facility] Work Phone: Comment on above: Expected: 10/13/2022 , Expires: 12/13/2022 Start: 09-22-2022 End: 11-22-2022 Choriogonadotropin.bet a subunit [Units/volume] in Serum or Plasma [facility] Work Phone: Comment on above: Expected: 09/22/2022 , Expires: 11/22/2022 Start: 06-25-2022 DEPRESSION ASSESSMENT DEPRESSION ASS ESSMENT [facility] Start: 2006 Urine microalbumin profile DTAP,TDAP,TD (1 - Tdap) [facility] Start: 2005 [facility]: 2005 HIV SCREENING HIV SCREENING [facility] Start: 1987 HEPATITIS B (1 of 3 - 3-dose series) HEPATITIS B (1 of 3 - 3-dose series) [facility] Start: 1987 Hepatitis B Vaccine (1 of 3 - 3-dose series) Hepatitis B Vaccine (1 of 3 - 3-dose series) [facility] Bacteria identified in Urine by Culture URINE CULTURE Microbiology Routine Advanced maternal age, 1st , first trimester 10/13/2022 3:03 PM EDT [facility] Work Phone: Chlamydia trachomatis+Neisseria gonorrhoeae DNA [Presence] in Unspecified specimen by STEPHANIE with probe detection GC/CHLAMYDIA DNA DET Lab Routine Advanced maternal age, 1st , first trimester 10/13/2022 3:03 PM EDT [facility] Work Phone: End: 05-30-2023 nonstress test NON-STRESS TEST Procedures Routine 35 weeks gestation of Polyhydramnios in third trimester complication, single or unspecified fetus Gestational diabetes mellitus, class A1 AMA (advanced maternal age) multigravida 35+, third trimester Once per week for 5 Occurrences starting 04/25/2023 until 05/30/2023 [facility] Work Phone: Comment on above: Once per week for 5 Occurrences starting 04/25/2023 until 05/30/2023 PAP TEST PAP TEST Lab Que armijo Encounter for screening for malignant neoplasm of cervix Special screening examination for human papillomavirus (HPV) 10/13/2022 3:30 PM EDT [facility] Work Phone: ROUTINE, GROUP B STREP PCR ROUTINE, GROUP B STREP PCR Microbiology Routine 35 weeks gestation of Ordered: 04/25/2023 [facility] Work Phone: Comment on above: Ordered: 04/25/2023 URINE OB DIP B/O URINE OB DIP B/ O Lab Routine Multigravida of advanced maternal age in second trimester 24 weeks gestation of Ordered: 02/06/2023 [facility] Work Phone: Comment on above: Ordered: 02/06/2023 [facility] Immunizations Immunization Date Immunization Notes Care Provider Fa halle 04-10-2023 influenza, injectabl e, quadrivalent, contains preservative Sole Vogel MD Work Phone: [facility] 09-19-2023 tetanus toxoid, redu joseph diphtheria toxoid, and acellular pertussis vaccine, adsorbed Guero Estrella MD Work Phone: [facility] 04-24-2022 influenza virus vaccine, unspecified formulation Guero Estrella MD Work Phone: [facility] 05-30-2021 COVID-19 original vaccine, age 12+ yr, monovalent (PFIZER-BIONTECH - PURPLE TOP) [employer]z [employer]IVING [employer] Work Phone: [facility] Work Phone: 10-08-2020 COVID-19 original vaccine, age 12+ yr, monovalent (PFIZER-BIONTECH - PURPLE TOP) [employer] [place] [employer] AND RECEIVING ASSOCIATE[employer] Work Phone: [facility] Work Phone: 09-17-2020 COVID-19 original vaccine, age 12+ yr, monovalent (PFIZER-BIONTECH - PURPLE TOP) [employer] [place] [employer]IPPING AND RECEIVING ASSOCIATE[employer] Work Phone: [facility] Work Phone: Payers Date Payer Category Payer Private Health Insurance LAWSONDILCIA GOLDMAN OA [id number] 2022-Present [phone] [facility] [id number] [place] [address] Open Access [id number] 2022 Private Health Insurance [id number] Social History Date Type Detail Facility Start: 08-15-2022 End: 10-05-2022 Tobacco smoking status NHIS Ex-smoker [facility] Work Phone: End: 06-27-2022 History of tobacco use Current smoker [facility] Work Phone: Start: 08-15-2022 End: 10-05-2022 Tobacco use and exposure Smokeless tobacco non-user [facility] Work Phone: Start: 08-15-2022 Alcohol intake Current drinker of alcohol (finding) [facility] Start: 09-02-2019 History SDOH Social Connections Phone 4 [facility] Start: 09-02-2019 History SDOH Social Connections Get Together 2 [facility] Start: 09-02-2019 History SDOH Social Connections Meetings 1 [facility] Start: 09-02-2019 History SDOH Social Connections Living 8 [facility] Start: 09-02-2019 History SDOH Physical Activity DPW 3 [facility] Start: 09-02-2019 History SDOH Financial 5 [facility] Start: 09-02-2019 Education 16 [facility] Start: 11-09-2010 Alcohol Comment occasionally [facility] Start: 1985 Sex Assigned At Not on file [facility] End: 06-27-2022 History of tobacco use Cigarette Smoker [facility] Work Phone: Start: 10-05-2022 End: 05-24-2023 Alcohol intake Ex-drinker (finding) [facility] Start: 08-31-2022 [facility] Start: 09-02-2019 End: 08-15-2022 History of Social function [facility] Work Phone: Start: 09-02-2019 End: 08-15-2022 Social connection and isolation panel [facility] Work Phone: Do you belong to any clubs or organizations such as yarsani groups, unions, fraternal or athletic groups, or school groups? No [facility] Work Phone: Are you now , , , , never or living with a partner? Living with partner [facility] Work Phone: How hard is it for y ou to pay for the very basics like food, housing, medical care, and heating Not hard at all [facility] Work Phone: Do you feel stress - tense, restless, nervous, or anxious, or unable to sleep at night because your mind is troubled all the time - these days [OSQ] Not at all [facility] Work Phone: (I/We) worried wheth er (my/our) food would run out before (I/we) got money to buy more. Never true [facility] Work Phone: Medical Equipment Procedure Code Equipment Code Equipment Original Text Equipment Identifier Dates Start: 04-04-2023 End: 05-24-2023 Comment on above: 1 Strip four times d aily. Use as instructed 1 Each four times da jacinda. Use as instructed Goals Date Patient Goal Desired Activity /State Personal health goal Clinical Notes 08-15-2022 to 06-26-2023 Sole Vogel MD - 05/24/2023 10:03 AM Emily Johnston RN - 05/15/2023 8:45 AM ESTTelephone Encounter - Vilma Hernandez MD - 05/14/2023 3:45 PM Halie Pitt MA - 05/10/2023 11:12 AM EST Note Date & Type Note Facility 06-26-2023 Note HNO ID: [id number] Author: Sole Vogel MD Service: ? Author Type: Physician Type: Progress Notes Filed: 06/26/2023 4:42 PM Note Text: VISIT Meenakshi Orta is a 38 year old year old here for visit. Delivery Summary: ROS/ Recovery: Feeding: Breast feeding problems: None Menses since delivery: n/a Menstrual pattern prior to : Regular periods Depression: denies symptoms of depression. OB Depression and Anxiety Screening- This Encounter (since 06/25/2023) Over the past 2 weeks have you felt down, depressed, or hopeless? Negative Over the past two weeks, have you felt little interest or pleasure in doing things?? Negative Feeling nervous, anxious or on edge 0-Not at all Not being able to stop or control worrying 0-Not al all Anxiety Pre-Screening Total (If >/= 3 additional questions will be reviewed) 0 Emotional support: Yes Bowel symptoms: Negative for abdominal discomfort, blood in stools or black stools and change in bowel habits Abdomen: She reports no incisional redness, tenderness, erythema Bladder symptoms: No dysuria, gross hematuria, urinary frequency, urinary urgency, or incontinence Other issues: None Last Pap: 2022 normal HPV: negative PAST MEDICAL HISTORY Diagnosis Date Abnormal glandular Papanicolaou smear of cervix Atypical squamous cells cannot exclude high grade squamous intraepithelial lesion on cytologic smear of cervix (ASC-H) 08/21/2018 Chlamydia 2016 Cleft lip and palate Diet controlled gestational diabetes mellitus (GDM) in third trimester 04/04/2023 PMS (premenstrual syndrome) PAST SURGICAL HISTORY Procedure Laterality Date ANES INTRAORAL W/BIOPSY REPAIR CLEFT PALATE 1987 BONE GRAFT MAXILLA 06/25/1994 DELIVERY ONLY 05/15/2023 [facility] EXTENSIVE JAW SURGERY 06/25/2000 VAGINOSCOPY FAMILY HISTORY Adopted: Yes Problem Relation Age of Onset other (unknown) Mother patient is adopted other (unknown) Father patient is adopted Social History Tobacco Use Smoking status: Former Years: 15 Types: Cigarettes Quit date: 06/27/2022 Years since quittin.9 Smokeless tobacco: Never Vaping Use Vaping Use: Never used Substance Use Topics Alcohol use: Not Currently Comment: occasionally Drug use: No PHYSICAL EXAMINATION: BP 122/76 Ht 5' 4 (1.63m) Wt 199 lb (90.3kg) LMP 08/17/2022 BMI 34.14 kg/(m2). GENERAL: pleasant, female in no apparent distress HEENT: Normocephalic, atraumatic, mucus membranes moist, and no lesions NECK: Supple, full range of motion, no adenopathy, and thyroid normal DERMATOLOGY: Normal, without lesions, non-icteric, and non-hirsute BREAST: soft, non-tender, symmetric, no dominant mass, normal nipple-areolar complex, no lymphadenopathy, and no nipple discharge CHEST: Normal inspiratory effort ABDOMEN: soft, non-tender, and no masses. INCISION: No incisional redness, swelling, or drainage PELVIC: external genitalia normal, normal Bartholin's glands, urethra, Pope's glands, no vulvar lesions, no cervical lesions, good vaginal support, physiologic discharge present, normal appearing perineal body and perianal region BIMANUAL: uterus normal size, shape and consistency, no adnexal masses, and non-tender NEURO: alert and oriented x3,exam grossly non-focal EXTREMITIES: normal ASSESSMENT AND PLAN: 38 year old status post CS with normal course. Contraception plan: condoms Follow up: RTC for annual exams and PRN GDM- 2 hr gtt ordered Sole Vogel MD [facility] 05-24-2023 Note HNO ID: [id number] Author: Sole Vogel MD Service: ? Author Type: Physician Type: Progress Notes Filed: 05/24/2023 10:35 AM Note Text: EARLY VISIT Meenakshi Orta is a 38 year old here for 1 week visit. Delivery Summary: c-s ROS: General: Denies any fever or chills Hypertension Screening: Headache? No. Visual Changes? No Epigastric Pain? No Increased Swelling? Yes Taking any BP medications at home? No If applicable, monitoring BP at home? (If Yes, include results) NA Mood: normal Depression: denies symptoms of depression. OB Depression and Anxiety Screening- This Encounter (since 05/23/2023) Over the past 2 weeks have you felt down, depressed, or hopeless? Negative Over the past two weeks, have you felt little interest or pleasure in doing things?? Negative Feeling nervous, anxious or on edge 0-Not at all Not being able to stop or control worrying 0-Not al all Anxiety Pre-Screening Total (If >/= 3 additional questions will be reviewed) 0 Reviewed above and agree. Feeding: Breast and bottle feeding problems: Inadequate milk supply- supplements as well Bladder: No dysuria, gross hematuria, urinary frequency, urinary urgency, or incontinence Bowel symptoms: Negative for abdominal discomfort, blood in stools or black stools and change in bowel habits Abdomen: She reports no incisional redness, tenderness, erythema Bleeding: light flow Bottom and Perineum: No issues Sleep: no sleep concerns, feels rested Emotional support: Yes Exercise: N/A Other issues: None PHYSICAL EXAMINATION: BP 154/88 Wt 211 lb (95.7 kg) LMP 08/17/2022 (Exact Date) Yes BMI 36.22 kg/m? General: pleasant,female in no apparent distress, AANDO x 3. Skin warm and intact. Breast: Deferred Abdomen: soft, non-tender, and no masses /Incision: No incisional redness, swelling, or drainage Pelvic: Deferred Bimanual: Deferred ASSESSMENT AND PLAN: 38 year old status post CS with normal course. Contraception plan: Oral contraceptives . Reinforced 6-week pelvic rest. Encouraged condom usage should patient deviate. Education: resources provided - see MA/RN note 2 hr glucose after 6 week PP Follow up: Return to Clinic for 6 week visit and as needed Sole Vogel MD [facility] 05-24-2023 History of Presen t illness Narrative EARLY VISIT Meenakshi Orta is a 38 year old here for 1 week visit. Delivery Summary: c-s ROS: General: Denies any fever or chills Hypertension Screening: Headache? No. Visual Changes? No Epigastric Pain? No Increased Swelling? Yes Taking any BP medications at home? No If applicable, monitoring BP at home? (If Yes, include results) NA Mood: normal Depression: denies symptoms of depression. OB Depression and Anxiety Screening- This Encounter (since 05/23/2023) Over the past 2 weeks have you felt down, depressed, or hopeless? Negative Over the past two weeks, have you felt little interest or pleasure in doing things? Negative Feeling nervous, anxious or on edge 0-Not at all Not being able to stop or control worrying 0-Not al all Anxiety Pre-Screening Total (If >/= 3 additional questions will be reviewed) 0 Reviewed above and agree. Feeding: Breast and bottle feeding problems: Inadequate milk supply- supplements as well Bladder: No dysuria, gross hematuria, urinary frequency, urinary urgency, or incontinence Bowel symptoms: Negative for abdominal discomfort, blood in stools or black stools and change in bowel habits Abdomen: She reports no incisional redness, tenderness, erythema Bleeding: light flow Bottom and Perineum: No issues Sleep: no sleep concerns, feels rested Emotional support: Yes Exercise: N/A Other issues: None PHYSICAL EXAMINATION: BP 154/88 Wt 211 lb (95.7 kg) LMP 08/17/2022 (Exact Date) Yes BMI 36.22 kg/m General: pleasant,female in no apparent distress, A&O x 3. Skin warm and intact. Breast: Deferred Abdomen: soft, non-tender, and no masses /Incision: No incisional redness, swelling, or drainage Pelvic: Deferred Bimanual: Deferred ASSESSMENT AND PLAN: 38 year old status post CS with normal course. Contraception plan: Oral contraceptives . Reinforced 6-week pelvic rest. Encouraged condom usage should patient deviate. Education: resources provided - see MA/RN note 2 hr glucose after 6 week PP Follow up: Return to Clinic for 6 week visit and as needed Sole Vogel MD documented in this encounter [facility] 05-16-2023 Note HNO ID: [id number] Author: Halie Patino MA Service: ? Author Type: Dross Skimmer Type: Progress Notes Filed: 05/16/2023 12:45 PM Note Text: POPULATION HEALTH NAVIGATION OUTREACH Action/FYI Pt delivered per psychiatric on 05/15. Patient Identified by Name and : NO Outreach Outcome/Action Unable to reach patient: see FYI Navigation Signature: Halie Merino MA May 16, 2023 12:44 PM [facility] 05-15-2023 Note HNO ID: [id number] Author: Emily Odom RN Service: ? Author Type: ? Type: Progress Notes Filed: 05/15/2023 8:55 AM Note Text: Patient delivered via by Dr. Vogel on 05/15/23 at [facility]. See OB history. Emily Odom RN [facility] 05-15-2023 History of Presen t illness Narrative Patient delivered via by Dr. Vogel on 05/15/23 at [facility]. See OB history. Emily Odom RN documented in this encounter [facility] 05-14-2023 Miscellaneous Notes Formattin g of this note might be different from the original. Reasonable to proceed as long as she is not having fevers, CP, SOB, flu-like symptoms. If she has mild URI symptoms ok to proceed. Would encourage incentive spirometer use , and obviously good hand hygiene. Please review in RR's absence. Her c/s is tomorrow AM. documented in this encounter [facility] 05-10-2023 Note Patient Outreach (NE TNAV) YOUMEENAKSHI FRAGOSO ([id number]) 1985 F Date Time Provider Department 05/10/23 HALIE PATINO During your visit today, we recorded the following information about you: Halie Patino MA 05/10/2023 11:13 AM Signed POPULATION HEALTH NAVIGATION OUTREACH Action/FYI 1st attempt: Called and left message to call back to discuss director of physician practices. message sent. Patient Identified by Name and : NO Outreach Outcome/Action Unable to reach patient: Left message MyChart message sent Did you use a PCP flex slot to schedule this appointment? N/A Reason for Outreach Payer: Payor: ALEX / Plan: ALEX OAP / Product Type: Open Access / Care Gap Reviewed:: N/A Reminder: Reminder note to check Health Maintenance for items below Health Maintenance items due: Depression Assessment Never done Navigation Signature: Halie Merino MA May 10, 2023 11:13 AM Halie Patino MA 05/16/2023 12:45 PM Signed POPULATION HEALTH NAVIGATION OUTREACH Action/FYI Pt delivered per [place] on 05/15. Patient Identified by Name and : NO Outreach Outcome/Action Unable to reach patient: see FYI Navigation Signature: Halie Merino MA May 16, 2023 12:44 PM Allergies As of Date: 05/10/2023 Noted Allergy Reaction AMOXICILLIN 11/09/2010 4 - Hives PENICILLINS 11/09/2010 4 - Hives SULFA (SULFONAMIDE ANTIBIOTICS) 11/09/2010 4 - Hives Date Reviewed: 05/08/2023 Reviewed by: Sole Vogel MD - Fully Assessed Reason for Visit: Population Health Navigation Outreach [3910] Cmt: Peds/OB Prescriptions as of 05/16/2023 - blood sugar diagnostic test strip 1 Strip four times daily. Use as instructed - Lancets lancets 1 Each four times daily. Use as instructed - prental multivitamin 27 mg iron- 800 mcg tablet Take 1 tablet by mouth once daily. 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 Author Type: Dross Skimmer Type: Progress Notes Filed: 05/10/2023 11:13 AM Note Text: POPULATION HEALTH NAVIGATION OUTREACH Action/ 1st attempt: Called and left message to call back to discuss director of physician practices. MC message sent. Patient Identified by Name and : NO Outreach Outcome/Action Unable to reach patient: Left message MyChart message sent Did you use a PCP flex slot to schedule this appointment? N/A Reason for Outreach Payer: Payor: LAWSONNA / Plan: CIG[employer] OAP / Product Type: Open Access / Care Gap Reviewed:: N/A Reminder: Reminder note to check Health Maintenance for items below Health Maintenance items due: Depression Assessment Never done Navigation Signature: Halie Merino MA May 10, 2023 11:13 AM [facility] 05-10-2023 History of Presen t illness Narrative POPULATION HEALTH NAVIGATION OUTREACH Action/ 1st attempt: Called and left message to call back to discuss director of physician practices. MC message sent. Patient Identified by Name and : NO Outreach Outcome/Action Unable to reach patient: Left message MyChart message sent Did you use a PCP flex slot to schedule this appointment? N/A Reason for Outreach [place] Payer: Payor: CIGNA / Plan: CIGNA OAP / Product Type: Open Access / Care Gap Reviewed:: N/A Reminder: Reminder note to check Health Maintenance for items below Health Maintenance items due: Depression Assessment Never done Navigation Signature: Halie Merino MA May 10, 2023 11:13 AM documented in this encounter [facility] 05-08-2023 History and physical note Pre-Op History and Physical HPI: The patient is a 38 year old female presenting for pre-operative visit. She is scheduled for , for polyhydramnios, GDMA1 and EFW > 4500 gm on 05/15/23. Procedure discussed along with risks, benefits and complications. Other alternatives discussed for management. Consent form signed? Yes. PAST MEDICAL HISTORY Diagnosis Date Abnormal glandular Papanicolaou smear of cervix Chlamydia 2015 Cleft lip and palate Diet controlled gestational diabetes mellitus (GDM) in third trimester 04/04/2023 PMS (premenstrual syndrome) PAST SURGICAL HISTORY Procedure Laterality Date ANES INTRAORAL W/BIOPSY REPAIR CLEFT PALATE 1987 BONE GRAFT MAXILLA 06/25/1994 EXTENSIVE JAW SURGERY 06/25/2000 VAGINOSCOPY Current Outpatient Medications Medication Sig Dispense Refill blood sugar diagnostic test strip 1 Strip four times daily. Use as instructed 120 Strip 9 Lancets lancets 1 Each four times daily. Use as instructed 120 Each 9 prental multivitamin 27 mg iron- 800 mcg tablet Take 1 tablet by mouth once daily. No current facility-administered medications for this visit. ALLERGIES: Amoxicillin, Penicillins, and Sulfa (Sulfonamide Antibiotics) PERSONAL HISTORY: Social History Tobacco Use Smoking status: Former Years: 15 Types: Cigarettes Quit date: 06/27/2022 Years since quittin.8 Smokeless tobacco: Never Vaping Use Vaping Use: Never used Substance Use Topics Alcohol use: Not Currently Comment: occasionally Drug use: No FAMILY HISTORY: FAMILY HISTORY Adopted: Yes Problem Relation Age of Onset other (unknown) Mother patient is adopted other (unknown) Father patient is adopted REVIEW OF SYMPTOMS: GENERAL: denies fevers or chills ENDOCRINOLOGY: has not been on steroids Cardiology : denies palpitations or chest pain Respiratory: denies SOB or cough Hematology: denies history of prolonged bleeding or easy bruising or VTE Allergy: Denies history of personal or family history of allergy to anesthesia PHYSICAL EXAMINATION: VITALS: Blood pressure 132/88, weight 237 lb (107.5 kg), last menstrual period 08/17/2022. GENERAL: The patient is well nourished, well hydrated in no acute distress. , The patient is oriented to time, place, and person. NECK: Supple. No lynphadenopathy, normal thyroid, no thyromegaly. LUNGS: Clear to auscultation bilaterally. no wheezes, rhonchi or rales HEART: Regular rate and rhythm, Normal heart sounds, and No murmurs or gallops abd- soft, nontender, gravid IMPRESSION: Estimated Date of Delivery: 05/24/23 PLAN: The risks/benefits/alternatives and personal involved for the planned c/sectoin were reviewed with the patient. Her questions were answered to her satisfaction and she desires to proceed. Consent was signed. I reviewed with her postop instructions and expectations. Estimated weight is greater than 4500 g, GDM A1, blood sugars controlled, accelerated growth with polyhydramnios. Maternal- medicine recommends delivery at 38 to 39 weeks unless other indication arises sooner. I have reviewed and updated past medical and surgical history, medications and allergies Sole Vogel M.D. documented in this encounter [facility] 05-08-2023 Miscellaneous Notes Formattin g of this note might be different from the original. RR- VB No. LOF No. CTXS No. Movement: present. Other c/o: No. Medication list reviewed. Physical Exam See Flow Sheet Abd: soft, nontender, gravid Ext: edema: Trace A/P 37w5d Estimated Date of Delivery: 05/24/23 GDMA1, AMA, maternal obesity w/ EFW > 4500 gm. R/B/A to c/s were reviewed w/ patient and questions answered. Agrees to primary c/s. Proceed 38-39 weeks per M. Consent signed. Ranulfo fuchs. . Sole Vogel M.D. documented in this encounter [facility] 05-08-2023 Miscellaneous Notes Formattin g of this note might be different from the original. Anatomy ultrasound reviewed. No abnormalities identified. Follow up as clinically indicated. Please place copy in ob chart. Sole Vogel MD documented in this encounter [facility] 05-08-2023 Instructions Arianna Norton Ma - 05/08/2023 2:42 PM EST SEQUENTIAL SCREENINGS The [facility] offers sequential screenings for women who are interested in screenings for chromosomal abnormalities and certain defects during a . The sequential screen combines ultrasound and blood tests to determine the risk of chromosomal abnormalities, including Down's Syndrome (Trisomy 21) and Trisomy 18, as well as open neural tube defects including spina bifida. Ultrasound examination is performed between 11 weeks and 13 weeks gestational age. Blood tests are drawn after the ultrasound and again later in the between 15 and 21 weeks gestational age. Please let your physician know if you are interested in this testing. It will require an appointment with our software test technician. This is not an ultrasound performed by a physician in our office during a routine visit. SIGNS AND SYMPTOMS OF LABOR 1. Contractions every 10 minutes or more often 2. Clear, pink, or brownish fluid (water) leaking from vagina 3. Feeling that baby is pushing down, pressure 4. Low, dull backache 5. Cramps that feel like a period 6. Cramps with or without diarrhea If you notice any of the above symptoms, contact our office at [phone] and ask to speak with a nurse. After hours, you can call doctors registry at [phone] OR call [facility] at [phone] and ask to have the doctor contact printer dry film paged. If you consider this an emergency, dial 9-1-2 or go to your nearest emergency department. NEED HELP? Are you dealing with a violent or abusive relationship? Are you a victim of rape or sexual assult? Call [facility] ([facility] 24 hour Crisis Hotline: 913.947.6128 or 840-800-8250. MANUAL Your Guide to a Healthy manual is now on-line. Visit [email or web address] [email or web address] to download your free copy documented in this encounter [facility] 05-03-2023 Note HNO ID: [id number] Author: Guero Estrella MD Service: ? Author Type: Physician Type: Progress Notes Filed: 05/03/2023 2:34 PM Note Text: NST SUMMARY PROVIDER ASSESSMENT AND INTERPRETATION Meenakshi Orta is a 38 year old female, , who is at 37w0d with an KHAI of 05/24/2023, by Last Menstrual Period dating method. Indications for NST: Gestational Diabetes - Diet Controlled Baseline: 135 Variability: Moderate Accelerations: Present 15 X 15 Decelerations: None Contractions: TOCO: None Interpretation: Category II SIGNATURE: Guero Estrella MD [facility] 04-25-2023 Miscellaneous Notes Formattin g of this note might be different from the original. DM- Pt doing well today. Denies Vaginal Bleeding, Leaking fluid, or contractions. Pt reports good movement. GBS today. Reviewed BS log- Well controlled. Poly and Growth >99% and AC >99%. Discussed with patient with GDMA1 and growth will likely be >4500 at next ultrasound. Reviewed increased risk of shoulder dystocia, trauma, hemorrhage, arrest. Discussed and offered Primary CS. Pt will consider. RTO weekly for NSTs. Magui Houston MD documented in this encounter [facility] 04-25-2023 Instructions Angy Lantigua Ma - 04/25/2023 3:18 PM EDT SEQUENTIAL SCREENINGS The [facility] offers sequential screenings for women who are interested in screenings for chromosomal abnormalities and certain defects during a . The sequential screen combines ultrasound and blood tests to determine the risk of chromosomal abnormalities, including Down's Syndrome (Trisomy 21) and Trisomy 18, as well as open neural tube defects including spina bifida. Ultrasound examination is performed between 11 weeks and 13 weeks gestational age. Blood tests are drawn after the ultrasound and again later in the between 15 and 21 weeks gestational age. Please let your physician know if you are interested in this testing. It will require an appointment with our software test technician. This is not an ultrasound performed by a physician in our office during a routine visit. SIGNS AND SYMPTOMS OF LABOR 1. Contractions every 10 minutes or more often 2. Clear, pink, or brownish fluid (water) leaking from vagina 3. Feeling that baby is pushing down, pressure 4. Low, dull backache 5. Cramps that feel like a period 6. Cramps with or without diarrhea If you notice any of the above symptoms, contact our office at [phone] and ask to speak with a nurse. After hours, you can call doctors registry at [phone] OR call [facility] at [phone] and ask to have the doctor contact printer dry film paged. If you consider this an emergency, dial 02-23 or go to your nearest emergency department. NEED HELP? Are you dealing with a violent or abusive relationship? Are you a victim of rape or sexual assult? Call [facility] ([place]) 24 hour Crisis Hotline: 126.506.5590 or 239-418-1335. MANUAL Your Guide to a Healthy manual is now on-line. Visit [email or web address] to download your free copy documented in this encounter [facility] 04-12-2023 Miscellaneous Notes Formattin g of this note might be different from the original. Patient notified and voiced understanding of below. Elizabeth Becerra RN I agree with tylgarcía & joey. Please have her try this and will go from there. Guero Estrella MD Patient 34w0d calling with concerns of right sided rib pain that started this AM. Patient states she was coughing and felt something pop . She now has a constant sharp pain in that area. Pain is a 9/10 with standing, walking and coughing. Pain decreases to a 4/10 with sitting. Denies any bleeding, leaking, contractions, cramping, decreased movement, headache, dizziness or blurred vision. Patient has not tried anything for the pain. Encouraged to try Tylenol or heat/ice to the area. Please address. Elizabeth Becerra RN documented in this encounter [facility] 04-10-2023 Miscellaneous Notes Formattin g of this note might be different from the original. RR- VB No. LOF No. CTXS No. Movement: present. Other c/o: some edema, numbness in fingers Medication list reviewed. Physical Exam See Flow Sheet Abd: soft, nontender, gravid Ext: edema: 2+ A/P 33w5d Estimated Date of Delivery: 05/24/23 GBS next visit GDMA1 - BS log reviewed and fastings within target, so are after meals Growth scan today.> 99% and will repeat US in 4 weeks Kick counts plans RSV vaccine at outside pharmacy flu vaccine Sole Vogel M.D. documented in this encounter [facility] 04-10-2023 History of Past i llness Narrative Problem Noted Date Diagnosed Date Resolved Date Polyhydramnios in third trimester 04/10/2023 05/24/2023 Overview: 04/10/23 - mild - Guero Estrella MD Diet controlled gestational diabetes mellitus (GDM) in third trimester 04/04/2023 05/24/2023 Abnormal glucose complicating 03/14/2023 04/04/2023 Encounter for follow-up ultr asound of anatomy 02/16/2023 05/24/2023 Supervision of high risk pre gnancy in second trimester 02/06/2023 05/24/2023 Advanced maternal age, 1st 10/05/2022 05/24/2023 Overview: 10/05/2022atient is 37 years old. Advanced maternal age discussed. Noninvasive and invasive testing options discussed. Patient considering nuchal ultrasound and materniti 21 test. Contact information for [facility] given to patient to check on insurance coverage. TKRN documented as of this encounter (statuses as of 05/24/2023) [facility]10-17-2023 Instructions* Patient Instructions* Angy Lantigua Ma - 04/10/2023 1:20 PM EDT SEQUENTIAL SCREENINGS The [facility] offers sequential screenings for women who are interested in screenings for chromosomal abnormalities and certain defects during a . The sequential screen combinesultrasound and blood tests to determine the risk of chromosomal abnormalities, including Down's Syndrome (Trisomy 21) and Trisomy 18, as well as open neural tube defects including spina bifida. Ultrasound examination is performed between 11 weeks and 13 weeks gestational age. Blood tests are drawn after the ultrasound and again later in the between 15 and 21 weeks gestational age. Please let your physician know if you are interested in this testing. It will require an appointment withour software test technician. This is not an ultrasound performed by a physician in our office during a routine visit. SIGNS AND SYMPTOMS OF LABOR 1. Contractions every 10 minutes or more often 2. Clear, pink, or brownish fluid (water) leaking from vagina 3. Feeling that baby is pushing down, pressure 4. Low, dull backache 5. Cramps that feel like a period 6. Cramps with or without diarrhea If you notice any of the above symptoms, contact our office at [phone] and ask to speak with anurse. After hours, you can call doctors registry at [phone] OR call [facility] at [phone] ask to have the doctor contact printer dry film paged. If you consider this an emergency, dial 9-1-5 or go to your nearest emergency department. NEED HELP? Are you dealing with a violent or abusive relationship? Are you a victim of rape or sexual assult? Call [facility] ([place]) 24 hour Crisis Hotline: 764.955.3270 or 147-842-5530. MANUAL Your Guide to a Healthy manual is now on-line. Visit [email or web address] to download your free copy documented in this encounter[facility] Miscellaneous Notes* Telephone Encounter - Elizabeth Becerra RN - 04/09/2023 4:01 PM EDT Patient states leg swelling has decreased and is now back to normal. Per patient she was on her feet a lot on 04/06. Denies any warmth, redness or pain in leg/calf. Patient has OB appointment in office tomorrow. Elizabeth Becerra RN documented in this encounter[facility] Miscellaneous Notes* Telephone Encounter - Elizabeth Becerra RN - 04/09/2023 3:58 PM EDT Patient sent duplicate message in regards to this. See other [employer] message from 04/06. Elizabeth Becerra RN documented in this encounterMem[facility] Miscellaneous Notes* Telephone Encounter - Emily Odom RN - 03/29/2023 8:37 AM EDT Order signed and faxed. Emily Odom RN * Telephone Encounter - Emily Odom RN - 03/26/2023 11:44 AM EDT [facility] To KJ to sign. Emily Odom RN documented in this [facility]10-04-2023 Miscellaneous Notes* Quick Notes - Torie Isaacs APRN.CNM - 03/28/2023 2:41 PM EDT Meenakshi Orta is a 37 year old female who presents at 31w6d for a routine visit. Just getting over head cold/ congestion. Taking Robitussin. Started 1 week ago and is finally improving. Good movement. Denies headache, visual changes, chest pain, shortness of breath, vaginal bleeding, leakage of fluid, or dysuria. Feeling well, no complaints. Size greater than dates. Measuring 2 weeks ahead- already has growth ultrasound scheduled. 36 lbs TWG. PTL precautions reviewed. RTC in 2 weeks for growth US and SHAHNAZ Isaacs APRN.CNM documented in this encounterMem[facility] Instructions* Patient Instructions* Jaxon Ríos Cma - 03/28/2023 2:24 PM EDT SEQUENTIAL SCREENINGS The [facility] offers sequential screenings for women who are interested in screenings for chromosomal abnormalities and certain defects during a . The sequential screen combinesultrasound and blood tests to determine the risk of chromosomal abnormalities, including Down's Syndrome (Trisomy 21) and Trisomy 18, as well as open neural tube defects including spina bifida. Ultrasound examination is performed between 11 weeks and 13 weeks gestational age. Blood tests are drawn after the ultrasound and again later in the between 15 and 21 weeks gestational age. Please let your physician know if you are interested in this testing. It will require an appointment withour software test technician. This is not an ultrasound performed by a physician in our office during a routine visit. SIGNS AND SYMPTOMS OF LABOR 1. Contractions every 10 minutes or more often 2. Clear, pink, or brownish fluid (water) leaking from vagina 3. Feeling that baby is pushing down, pressure 4. Low, dull backache 5. Cramps that feel like a period 6. Cramps with or without diarrhea If you notice any of the above symptoms, contact our office at [phone] and ask to speak with anurse. After hours, you can call doctors registry at [phone] OR call [facility] at [phone] ask to have the doctor contact printer dry film paged. If you consider this an emergency, dial - or go to your nearest emergency department. NEED HELP? Are you dealing with a violent or abusive relationship? Are you a victim of rape or sexual assult? Call [facility] ([facility] 24 hour Crisis Hotline: 674.223.9011 or 233-472-8437. MANUAL Your Guide to a Healthy manual is now on-line. Visit [email or web address] to download your free copy documented in this encounterMem[facility] History of Past illness Narrative* Problem Noted Date Diagnosed Date Resolved Date Abnormal glucose complicating 03/14/2023 04/04/2023 documented as of this encounter (statuses as of 04/10/2023) [address]20-2023 History of Past illness Narrative* Problem Noted Date Diagnosed Date Resolved Date Abnormal glucose complicating 03/14/2023 04/04/2023 documented as of this encounter (statuses as of 04/10/2023) [facility]20[facility] History of Past illness Narrative* Problem Noted Date Diagnosed Date Resolved Date Abnormal glucose complicating 03/14/2023 04/04/2023 documented as of this encounter (statuses as of 04/11/2023) [place] [address]20-2023 History of Past illness Narrative* Problem Noted Date Diagnosed Date Resolved Date Abnormal glucose complicating 03/14/2023 04/04/2023 documented as of this encounter (statuses as of 04/12/2023) [facility] History of Past illness Narrative* Problem Noted Date Diagnosed Date Resolved Date Abnormal glucose complicating 03/14/2023 04/04/2023 documented as of this encounter (statuses as of 04/26/2023) [address]20-2023 History of Past illness Narrative* Problem Noted Date Diagnosed Date Resolved Date Abnormal glucose complicating 03/14/2023 04/04/2023 documented as of this encounter (statuses as of 05/09/2023) [address]20-2023 History of Past illness Narrative* Problem Noted Date Diagnosed Date Resolved Date Abnormal glucose complicating 03/14/2023 04/04/2023 documented as of this encounter (statuses as of 05/09/2023) [address]20-2023 History of Past illness Narrative* Problem Noted Date Diagnosed Date Resolved Date Abnormal glucose complicating 03/14/2023 04/04/2023 documented as of this encounter (statuses as of 05/10/2023) [facility] History of Past illness Narrative* Problem Noted Date Diagnosed Date Resolved Date Abnormal glucose complicating 03/14/2023 04/04/2023 documented as of this encounter (statuses as of 05/15/2023) [facility] History of Past illness Narrative* Problem Noted Date Diagnosed Date Resolved Date Abnormal glucose complicating 03/14/2023 04/04/2023 documented as of this encounter (statuses as of 05/15/2023) [facility]09-19-2023 NoteHNO ID: [id number] Author: Shelia Long Ma Service: ? Author Type: ? Type: Progress Notes Filed: 03/13/2023 4:46 PM Note Text: Patient identified by name and date of . Meenakshi Orta presents today for a vaccination of Tdap. Patient denies an allergy to latex: yes Patient denies a severe (life-threatening) allergy to a previous dose of Tdap, DTP, DTaP, DT or Td vaccine. Yes Patient denies history of epilepsy or neurological problems: Yes Patient is afebrile and denies being moderately or severely ill: Yes Patient denies history of Guillain-Shuqual[place] Syndrome (a severe paralytic illness): Yes See immunizations for details of immunizations administered today. VIS sheet provided: Yes Provider Guero Estrella MD was present in office at time of injection.[facility]09-19-2023 Miscellaneous Notes* Quick Notes - Guero Estrella MD - 03/13/2023 4:09 PM EDT KJ - No VB/LOF/ctxs. Reports good FM. A&P: 28wk labs Tdap Growth US in 4 weeks Declines [facility] peds info given Reviewed PTL & FM precautions Guero Estrella MD documented in this encounterMemorial [facility]09[facility] History of Present illness Narrative* Shelia Long Ma - 03/13/2023 3:47 PM EDT Patient identified by name and date of . Meenakshi Orta presents today for a vaccination of Tdap. Patient denies an allergy to latex: yes Patient denies a severe (life-threatening) allergy to a previous dose of Tdap, DTP, DTaP, DT or Td vaccine. Yes Patient denies history of epilepsy or neurological problems: Yes Patient is afebrile and denies being moderately or severely ill: Yes Patient denies history of Guillain-Shuqual[place] Syndrome (a severe paralytic illness): Yes See immunizations for details of immunizations administered today. VIS sheet provided: Yes Provider Guero Estrella MD was present in office at time of injection. documented in this encounterMemorial [facility]09-19-2023 Instructions* Patient Instructions* Shelia Long Ma - 03/13/2023 3:39 PM EDT SEQUENTIAL SCREENINGS The [facility] offers sequential screenings for women who are interested in screenings for chromosomal abnormalities and certain defects during a . The sequential screen combinesultrasound and blood tests to determine the risk of chromosomal abnormalities, including Down's Syndrome (Trisomy 21) and Trisomy 18, as well as open neural tube defects including spina bifida. Ultrasound examination is performed between 11 weeks and 13 weeks gestational age. Blood tests are drawn after the ultrasound and again later in the between 15 and 21 weeks gestational age. Please let your physician know if you are interested in this testing. It will require an appointment withour software test technician. This is not an ultrasound performed by a physician in our office during a routine visit. SIGNS AND SYMPTOMS OF LABOR 1. Contractions every 10 minutes or more often 2. Clear, pink, or brownish fluid (water) leaking from vagina 3. Feeling that baby is pushing down, pressure 4. Low, dull backache 5. Cramps that feel like a period 6. Cramps with or without diarrhea If you notice any of the above symptoms, contact our office at [phone] and ask to speak with anurse. After hours, you can call [employer] registry at [phone] OR call [facility] at [phone] ask to have the doctor contact printer dry film paged. If you consider this an emergency, dial 9-1-6 or go to your nearest emergency department. NEED HELP? Are you dealing with a violent or abusive relationship? Are you a victim of rape or sexual assult? Call [facility] ([place]) 24 hour Crisis Hotline: 563.811.6607 or 227-320-0264. MANUAL Your Guide to a Healthy manual is now on-line. Visit [email or web address] to download your free copy documented in this encounterMemorial [facility]08-[facility]23 Miscellaneous Notes* Quick Notes - Sole Vogel MD - 02/06/2023 1:43 PM EDT RR- No VB/LOF. Good FM. Mild edema, worse at end of the day. F/u in 4 weeks for 28 week labs. Sole Vogel MD documented in this encounterMemorial [facility]08-15-2023 Instructions* Patient Instructions* Arianna Norton Ma - 02/06/2023 1:32 PM EDT SEQUENTIAL SCREENINGS The [facility] offers sequential screenings for women who are interested in screenings for chromosomal abnormalities and certain defects during a . The sequential screen combinesultrasound and blood tests to determine the risk of chromosomal abnormalities, including Down's Syndrome (Trisomy 21) and Trisomy 18, as well as open neural tube defects including spina bifida. Ultrasound examination is performed between 11 weeks and 13 weeks gestational age. Blood tests are drawn after the ultrasound and again later in the between 15 and 21 weeks gestational age. Please let your physician know if you are interested in this testing. It will require an appointment withour software test technician. This is not an ultrasound performed by a physician in our office during a routine visit. SIGNS AND SYMPTOMS OF LABOR 1. Contractions every 10 minutes or more often 2. Clear, pink, or brownish fluid (water) leaking from vagina 3. Feeling that baby is pushing down, pressure 4. Low, dull backache 5. Cramps that feel like a period 6. Cramps with or without diarrhea If you notice any of the above symptoms, contact our office at [phone] and ask to speak with anurse. After hours, you can call doctors registry at [phone] OR call [facility] at [phone] ask to have the doctor contact printer dry film paged. If you consider this an emergency, dial 9-1-2 or go to your nearest emergency department. NEED HELP? Are you dealing with a violent or abusive relationship? Are you a victim of rape or sexual assult? Call [facility] ([place]) 24 hour Crisis Hotline: 706.998.8498 or 658-922-9892. MANUAL Your Guide to a Healthy manual is now on-line. Visit [email or web address] to download your free copy documented in this encounterMemorial [facility]07-18-2023 Miscellaneous Notes* Quick Notes - Guero Estrella MD - 01/09/2023 2:23 PM EDT KJ - No VB/LOF/ctxs. Reports some FM. A&P: Anatomy US today Declines NIPT Guero Estrella MD documented in this encounterMemorial [facility]07-18-2023 Instructions* Patient Instructions* Shelia Long Ma - 01/09/2023 1:56 PM EDT SEQUENTIAL SCREENINGS The [facility] offers sequential screenings for women who are interested in screenings for chromosomal abnormalities and certain defects during a . The sequential screen combinesultrasound and blood tests to determine the risk of chromosomal abnormalities, including Down's Syndrome (Trisomy 21) and Trisomy 18, as well as open neural tube defects including spina bifida. Ultrasound examination is performed between 11 weeks and 13 weeks gestational age. Blood tests are drawn after the ultrasound and again later in the between 15 and 21 weeks gestational age. Please let your physician know if you are interested in this testing. It will require an appointment withour software test technician. This is not an ultrasound performed by a physician in our office during a routine visit. SIGNS AND SYMPTOMS OF LABOR 1. Contractions every 10 minutes or more often 2. Clear, pink, or brownish fluid (water) leaking from vagina 3. Feeling that baby is pushing down, pressure 4. Low, dull backache 5. Cramps that feel like a period 6. Cramps with or without diarrhea If you notice any of the above symptoms, contact our office at [phone] and ask to speak with anurse. After hours, you can call doctors registry at [phone] OR call [facility] at [phone] ask to have the doctor contact printer dry film paged. If you consider this an emergency, dial 5--7 or go to your nearest emergency department. NEED HELP? Are you dealing with a violent or abusive relationship? Are you a victim of rape or sexual assult? Call [facility] ([place]) 24 hour Crisis Hotline: 533.750.5914 or 198-010-7788. MANUAL Your Guide to a Healthy manual is now on-line. Visit [email or web address] to download your free copy documented in this encounterMemorial [facility]06-20-2023 Miscellaneous Notes* Quick Notes - Glenys Ngo APRN.CNP - 12/12/2022 1:38 PM EDT RM-Pt doing well. Denies vaginal Bleeding, LOF, or nausea. She has not felt any movement yet. Physical Exam: Gen: no apparent distress Abd: soft, Gravid. Non tender to palpation. See flow sheet RTO for Anatomy scan and OB visit. Glenys Ngo APRN.CNP documented in this encounterMemorial Health [facility]06-20-2023 Instructions* Patient Instructions* Jaxon Ríos Cma - 12/12/2022 1:25 PM EDT SEQUENTIAL SCREENINGS The [facility] offers sequential screenings for women who are interested in screenings for chromosomal abnormalities and certain defects during a . The sequential screen combinesultrasound and blood tests to determine the risk of chromosomal abnormalities, including Down's Syndrome (Trisomy 21) and Trisomy 18, as well as open neural tube defects including spina bifida. Ultrasound examination is performed between 11 weeks and 13 weeks gestational age. Blood tests are drawn after the ultrasound and again later in the between 15 and 21 weeks gestational age. Please let your physician know if you are interested in this testing. It will require an appointment withour software test technician. This is not an ultrasound performed by a physician in our office during a routine visit. SIGNS AND SYMPTOMS OF LABOR 1. Contractions every 10 minutes or more often 2. Clear, pink, or brownish fluid (water) leaking from vagina 3. Feeling that baby is pushing down, pressure 4. Low, dull backache 5. Cramps that feel like a period 6. Cramps with or without diarrhea If you notice any of the above symptoms, contact our office at [phone] and ask to speak with anurse. After hours, you can call doctors registry at [phone] OR call [facility] at [phone] ask to have the doctor contact printer dry film paged. If you consider this an emergency, dial 1-4-8 or go to your nearest emergency department. NEED HELP? Are you dealing with a violent or abusive relationship? Are you a victim of rape or sexual assult? Call [facility] ([place]) 24 hour Crisis Hotline: 282.650.5501 or 074-549-6210. MANUAL Your Guide to a Healthy manual is now on-line. Visit [email or web address] to download your free copy documented in this encounterMemorial [facility]05-27-2023 Miscellaneous Notes* Telephone Encounter - Vilma Hernandez MD - 11/18/2022 5:32 PM EDT To take recommended serving size of PNV. CBC reviewed and no anemia at this time. Will repeat with 28 wk labs and if additional supplementation needed will prescribe documented in this encounterMemorial [facility]05-[facility]23 Miscellaneous Notes* Quick Notes - Vilma Hernandez MD - 11/13/2022 4:00 PM EDT SW- Pt doing well. No pain, vb, lof. NT today. Considering NIPT and information given for her to review and check cost.Schedule anatomy US. NOB labs today. RTO 4 wks. Vilma Hernandez DO documented in this encounterMemorial Health System [facility]05-22-2023 Instructions* Patient Instructions* Halie Farfan MA - 11/13/2022 3:07 PM EDT SEQUENTIAL SCREENINGS The [facility] offers sequential screenings for women who are interested in screenings for chromosomal abnormalities and certain defects during a . The sequential screen combinesultrasound and blood tests to determine the risk of chromosomal abnormalities, including Down's Syndrome (Trisomy 21) and Trisomy 18, as well as open neural tube defects including spina bifida. Ultrasound examination is performed between 11 weeks and 13 weeks gestational age. Blood tests are drawn after the ultrasound and again later in the between 15 and 21 weeks gestational age. Please let your physician know if you are interested in this testing. It will require an appointment withour software test technician. This is not an ultrasound performed by a physician in our office during a routine visit. SIGNS AND SYMPTOMS OF LABOR 1. Contractions every 10 minutes or more often 2. Clear, pink, or brownish fluid (water) leaking from vagina 3. Feeling that baby is pushing down, pressure 4. Low, dull backache 5. Cramps that feel like a period 6. Cramps with or without diarrhea If you notice any of the above symptoms, contact our office at [phone] and ask to speak with anurse. After hours, you can call doctors registry at [phone] OR call [facility] at [phone] ask to have the doctor contact printer dry film paged. If you consider this an emergency, dial 9-1-1 or go to your nearest emergency department. NEED HELP? Are you dealing with a violent or abusive relationship? Are you a victim of rape or sexual assult? Call [facility] ([place]) 24 hour Crisis Hotline: 228.145.8292 or 990-631-5698. MANUAL Your Guide to a Healthy manual is now on-line. Visit [email or web address] to download your free copy documented in this encounterMemorial Health [facility]04-21-2023 NoteHNO ID: [id number] Author: Guero Estrella MD Service: ? Author Type: Physician Type: Progress Notes Filed: 10/13/2022 3:26 PM Note Text: INITIAL OB ASSESSMENT Head Mva Reactor Operator offered: Patient declines. Obstetric History T0 L0 SAB0 IAB0 Ectopic0 Multiple0 Live Births0 Name of Baby 1: Not recorded Date: Not recorded GA: Not recorded Delivery: Not recorded Apgar1: Not recorded Apgar5: Not recorded Living: Not recorded HPI: Meenakshi is a 37 year old here to establish Obstetrical Care. Patient's last menstrual period was 08/17/2022 (exact date). from OB Dating Form. Cycles regular was planned Complaints: None OB History T0 L0 SAB0 IAB0 Ectopic0 Multiple0 Live Births0 Patient's Risk Screening for delivery: MEDICAL/PSYCHOSOCIAL HISTORY: History of hemorrhage or bleeding concerns: No Thyroid Disease: No History of chronic hypertension: No History of pre-existing diabetes: No No results found for: ABORHD No weight on file for this encounter. History of abnormal pap: Yes Prior treatment for cervical dysplasia: none. History of STDs: None, chlamydia, and HPV Tobacco use: Yes - quit 07/17 Caffeine use: Yes - occ Drug use: No Alcohol use: No Multivitamin with Folic acid: Yes Orthodoxy or heritage: No Would refuse blood transfusion if medically necessary: No Are you currently employed? Yes, Occupation: [employer] Do you have any history of depression, anxiety, PTSD, eating disorders or other mood problems: No Do you have any safety concerns or history of traumatic events that you would like to discuss with your provider: No How often does this describe you? I don't have enough money to pay my bills: Never Within the past 12 months, have you worried that your food would run out before you had money to buy more: Never In the past 12 months, has lack of reliable transportation kept you from going to medical appointments or work, or from keeping things needed for daily living: Never In the past 12 months, have you had any concerns about having a place to live, or about the condition or quality of your housing: Never Are there any cultural or spiritual needs we should be aware of: No Over the past two weeks have you felt down, depressed, or hopeless: Negative Over the past two weeks have you felt little interest or pleasure in doing things: Negative GENETIC SCREENING: Partner present: No Patient verbalized knowledge of partner family health history: No Do you or your partner have any personal or family history of defects not previously discussed: No Do you have history of a complicated by anomaly, genetic condition, or demise: No Marital Status:Committed Relationship Partner: Name: Garry Rivas Age: 35 Occupation: [employer] Gender: Male PAST MEDICAL HISTORY Diagnosis Date Abnormal glandular Papanicolaou smear of cervix Chlamydia 2016 Cleft lip and palate PMS (premenstrual syndrome) PAST SURGICAL HISTORY Procedure Laterality Date ANES INTRAORAL W/BIOPSY REPAIR CLEFT PALATE 1987 BONE GRAFT MAXILLA 06/25/1994 EXTENSIVE JAW SURGERY 06/25/2000 VAGINOSCOPY Current Outpatient Medications Medication Sig Dispense Refill prental multivitamin 27 mg iron- 800 mcg tablet Take 1 tablet by mouth once daily. No current facility-administered medications for this visit. Allergies As of Date: 10/13/2022 Allergen Noted Reaction AMOXICILLIN 11/09/2010 Hives PENICILLINS 11/09/2010 Hives SULFA (SULFONAMIDE ANTIBIOTICS) 11/09/2010 Hives Fully Assessed 10/13/2022 Does patient have penicillin allergy: Yes REVIEW OF SYSTEMS: GENERAL: Negative for: Fever or Chills HEENT: Negative for: Headache, Impaired Vision, Ringing in Ears, Nosebleeds NECK: Negative for: Swelling, Pain, Stiffness RESPIRATORY: Negative for: Cough, Shortness of breath, Wheezing GASTROINTESTINAL: Negative for: Heartburn, Constipation, Diarrhea, Blood in stool, Vomiting MUSCULOSKELETAL: Negative for: Muscle or joint pain, stiffness, Joint swelling NEUROLOGIC/PSYCHIATRIC: Negative for: Weakness, Paralysis, Numbness, Tingling, Tremor, Anxiety, Depression, Memory loss SKIN: Negative for: Rash, Itching GENITOURINARY: Negative for: vaginal itching, vaginal discharge, hematuria or dysuria PHYSICAL EXAM: LMP 08/17/2022 GENERAL: pleasant in no apparent distress DERMATOLOGY: Normal, without lesions, non-icteric, and non-hirsute NECK: Supple, full range of motion, no adenopathy, and thyroid normal CHEST: Normal inspiratory effort BREAST: soft, non-tender, symmetric, no dominant mass, normal nipple-areolar complex, no lymphadenopathy, and no nipple discharge ABDOMEN: soft, non-tender, and no masses NEURO: alert and oriented x3,exam grossly non-focal PELVIS: External genitalia normal without lesions. Perineal body intact. No vaginal or cervical lesions. (more content not included)...[facility]04-21-2023 History of Present illness Narrative* Guero Estrella MD - 10/13/2022 2:00 PM EDT INITIAL OB ASSESSMENT Head Mva Reactor Operator offered: Patient declines. Obstetric History T0 L0 SAB0 IAB0 Ectopic0 Multiple0 Live Births0 Name of Baby 1: Not recorded Date: Not recorded GA: Not recorded Delivery: Not recorded Apgar1: Not recorded Apgar5: Not recorded Living: Not recorded HPI: Meenakshi is a 37 year old here to establish Obstetrical Care. Patient's last menstrual period was 08/17/2022 (exact date). from OB Dating Form. Cycles regular was planned Complaints: None OB History T0 L0 SAB0 IAB0 Ectopic0 Multiple0 Live Births0 Patient's Risk Screening for delivery: MEDICAL/PSYCHOSOCIAL HISTORY: History of hemorrhage or bleeding concerns: No Thyroid Disease: No History of chronic hypertension: No History of pre-existing diabetes: No No results found for: ABORHD No weight on file for this encounter. History of abnormal pap: Yes Prior treatment for cervical dysplasia: none. History of STDs: None, chlamydia, and HPV Tobacco use: Yes - quit 07/17 Caffeine use: Yes - occ Drug use: No Alcohol use: No Multivitamin with Folic acid: Yes Orthodoxy or heritage: No Would refuse blood transfusion if medically necessary: No Are you currently employed? Yes, Occupation: [employer] Do you have any history of depression, anxiety, PTSD, eating disorders or other mood problems: No Do you have any safety concerns or history of traumatic events that you would like to discuss with your provider: No How often does this describe you? I don't have enough money to pay my bills: Never Within the past 12 months, have you worried that your food would run out before you had money to buy more: Never In the past 12 months, has lack of reliable transportation kept you from going to medical appointments or work, or from keeping things needed for daily living: Never In the past 12 months, have you had any concerns about having a place to live, or about the condition or quality of your housing: Never Are there any cultural or spiritual needs we should be aware of: No Over the past two weeks have you felt down, depressed, or hopeless: Negative Over the past two weeks have you felt little interest or pleasure in doing things: Negative GENETIC SCREENING: Partner present: No Patient verbalized knowledge of partner family health history: No Do you or your partner have any personal or family history of defects not previously discussed: No Do you have history of a complicated by anomaly, genetic condition, or demise: No Marital Status:Committed Relationship Partner: Name: Garry Rivas Age: 35 Occupation: [employer] Gender: Male PAST MEDICAL HISTORY Diagnosis Date Abnormal glandular Papanicolaou smear of cervix Chlamydia 2016 Cleft lip and palate PMS (premenstrual syndrome) PAST SURGICAL HISTORY Procedure Laterality Date ANES INTRAORAL W/BIOPSY REPAIR CLEFT PALATE 1987 BONE GRAFT MAXILLA 06/25/1994 EXTENSIVE JAW SURGERY 06/25/2000 VAGINOSCOPY Current Outpatient Medications Medication Sig Dispense Refill prental multivitamin 27 mg iron- 800 mcg tablet Take 1 tablet by mouth once daily. No current facility-administered medications for this visit. Allergies As of Date: 10/13/2022 Allergen Noted Reaction AMOXICILLIN 11/09/2010 Hives PENICILLINS 11/09/2010 Hives SULFA (SULFONAMIDE ANTIBIOTICS) 11/09/2010 Hives Fully Assessed 10/13/2022 Does patient have penicillin allergy: Yes REVIEW OF SYSTEMS: GENERAL: Negative for: Fever or Chills HEENT: Negative for: Headache, Impaired Vision, Ringing in Ears, Nosebleeds NECK: Negative for: Swelling, Pain, Stiffness RESPIRATORY: Negative for: Cough, Shortness of breath, Wheezing GASTROINTESTINAL: Negative for: Heartburn, Constipation, Diarrhea, Blood in stool, Vomiting MUSCULOSKELETAL: Negative for: Muscle or joint pain, stiffness, Joint swelling NEUROLOGIC/PSYCHIATRIC: Negative for: Weakness, Paralysis, Numbness, Tingling, Tremor, Anxiety, Depression, Memory loss SKIN: Negative for: Rash, Itching GENITOURINARY: Negative for: vaginal itching, vaginal discharge, hematuria or dysuria PHYSICAL EXAM: LMP 08/17/2022 GENERAL: pleasant in no apparent distress DERMATOLOGY: Normal, without lesions, non-icteric, and non-hirsute NECK: Supple, full range of motion, no adenopathy, and thyroid normal CHEST: Normal inspiratory effort BREAST: soft, non-tender, symmetric, no dominant mass, normal nipple-areolar complex, no lymphadenopathy, and no nipple discharge ABDOMEN: soft, non-tender, and no masses NEURO: alert and oriented x3,exam grossly non-focal PELVIS: External genitalia normal without lesions. Perineal body intact. No vaginal or cervical lesions. Cervix closed. Uterus 8 week size. No adnexal masses or tenderness. Clinical Pelvimetry: Pelvimetry clinically assessed as adequate Limited OB ultrasound exam: single intrauterine and positive cardiac activity OB Risk Screening: Completed, positive findings include: Patient will be less than 17 or greater than 34 at the time of Delivery ASSESSMENT: 37 year old at 8w1d wks gestational age PLAN: 1) Patient oriented to practice. Discussed nutrition, folic acid supplementation, dietary guidelines, exercise, smoking, alcohol, caffeine, and drug use. Discussed routine OB labs including STD/HIV. Discussed how to access Your guide to a health and the Junior Database Administrator. Discussed aneuploidy and carrier screening. Regarding aneuploidy screening, nuchal translucency/first trimester early anatomy ultrasound and NIPT were discussed. Regarding carrier screening, the myriad screen was discussed. The risks/benefits and limitations of NIPT/aneuploidy screening were reviewed including the potential for false negative and false positive results. We discussed the availability of professional-society guided carrier screening and reviewed the conditions screened and limitations of screening. The availability of genetic counseling was reviewed. Information on aneuploidy/carrier screening was provided. The patient chooses: Aneuploidy screening: chooses to proceed with First trimester early anatomy ultrasound (12-13w6d) and NIPT (10 weeks) and Carrier screening: Declines Patient has penicillin allergy - will offer allergy testing at next visit. 2) AMA: Aneuploidy screening reviewed Follow up in 4 weeks or sooner prn. Guero Estrella MD documented in this encounterMem[facility]04[facility]23 Instructions* Patient Instructions* Shelia Long Ma - 10/13/2022 2:00 PM EDT Please select the following link to access the [facility] Your Guide to a Healthy . [email or web address] documented in this encounterMemorial [facility]04-13-2023 Miscellaneous Notes* Quick Notes - Braxton Maza RN - 10/05/2022 2:55 PM EDT DISTANCE HEALTH VISIT This Team Access Model visit is a phone encounter. It required patient-provider interaction for themedical decision making as documented below. Father of the baby involved. Patient is 37 years old. Advanced maternal age discussed. Noninvasive and invasive testing options discussed. Patient considering nuchal ultrasound and maternity 21 test. Contact information for [facility] given to patient to check on insurance coverage. Patient with cleft lip and palate. Patient was adopted so she does not know of any other history in her family of defects. Patient considering genetic carrier screening testing. Contact information for Darlene robertson given to patient to check on insur ance coverage. TKRN documented in this encounterMemorial Health [facility]04-04-2023 Miscellaneous Notes* Telephone Encounter - Vicki Wilkinson RN - 09/26/2022 9:10 AM EDT PNOB and NOB scheduled. * Telephone Encounter - Prudence Niño LPN - 09/25/2022 8:56 AM EDT Message left asking pt to contact the office for results and to schedule her PNOB and NOB. Lesa THAKUR * Telephone Encounter - Glenys Ngo APRN.CNP - 09/25/2022 6:59 AM EDT Please notify pt that she is and she can schedule her appts. Let her I said congratulations! Glenys Ngo APRN.CNP documented in this encounterMemorial Health [facility]03-31-2023 Miscellaneous Notes* Telephone Encounter - Glenys Ngo APRN.CNP - 09/22/2022 10:39 AM EDT Order signed, [email or web address] msg sent. Glenys Ngo APRN.CNP * Telephone Encounter - Vicki Wilkinson RN - 09/22/2022 9:57 AM EDT Patient called. LMP 08/17/22. Took x1 +UPT and one that was unclear. HCG quant order pending. Deniesany spotting, bleeding, or cramping. Ok to send patient a [email or web address] message that the order was placed. Vicki Wilkinson RN * Telephone Encounter - Elizabeth Becerra RN - 09/22/2022 9:50 AM EDT Left message to call office. Elizabeth Becerra RN * Telephone Encounter - Elizabeth Becerra RN - 09/22/2022 9:49 AM EDT ----- Message from John Reyes sent at 09/22/2022 9:42 AM EDT ----- Regarding: Patient would like to have a blood test ordered Contact: Patient would like a blood test to be ordered to confirm . Please notify patientonce order has been placed so that she can get lab work done. documented in this encounterMemorial Health System [facility]02-21-2023 NoteHNO ID: [id number] Author: Glenys Ngo APRN.ARCHITECTURE FACULTY MEMBER Service: ? Author Type: Nurse Practitioner Type: Progress Notes Filed: 08/15/2022 11:04 AM Note Text: Meenakshi is a 37 year old who presents for an annual gynecologic exam without complaints. Stopped taking OCP one year ago to try and conceive. Menses: cycles every 28-30 days and 4-5 days of flow. Contraception: none HPV vaccine: No Last Pap: 09/05/2019 normal HPV: 09/04/2019 negative History of abnormal pap: Yes Last mammogram: Never Sexually active: Yes History of STDS: None Time with current partner: 5 years Exercise: 4 times a week for 30-40 minutes. Type: walking and running Diet: no red meat Seatbelt use: Yes OB History T0 L0 SAB0 IAB0 Ectopic0 Multiple0 Live Births0 Hydrometer Calibrator History LMP: 07/20/2022, Having periods Age at Menarche: Age at First : Age at Menopause: Hydrometer Calibrator History Comments: Sexual Activity: Yes; Male Contraception: Pill PAST MEDICAL HISTORY Diagnosis Date Cleft lip and palate PMS (premenstrual syndrome) PAST SURGICAL HISTORY Procedure Laterality Date ANES INTRAORAL W/BIOPSY REPAIR CLEFT PALATE 1987 BONE GRAFT MAXILLA 1994 EXTENSIVE JAW SURGERY 2000 FAMILY HISTORY Adopted: Yes Problem Relation Age of Onset other (unknown) Mother patient is adopted other (unknown) Father patient is adopted SOCIAL HISTORY Social History Tobacco Use Smoking status: Former Smokeless tobacco: Never Vaping Use Vaping Use: Never used Substance Use Topics Alcohol use: Yes Comment: occasionally Drug use: No REVIEW OF SYSTEMS Abdomen: No abdominal pain, nausea, vomiting, diarrhea, or constipation. No bloating, early satiety, indigestion, or increased flatulence. Bladder: No dysuria, gross hematuria, urinary frequency, urinary urgency, or incontinence. Breast: No breast lumps, nipple d/c, overlying skin changes, redness or skin retraction. Allergies and current medication updated:Yes EXAM: BP 120/70 Ht 5' 4 (1.63m) Wt 190 lb 9.6 oz (86.5kg) LMP 07/20/2022 BMI 32.70 kg/(m2). GENERAL: pleasant, female in no apparent distress HEENT: Normocephalic, atraumatic, mucus membranes moist, and no lesions NECK: Supple, full range of motion, no adenopathy, and thyroid normal DERMATOLOGY: Normal, without lesions, non-icteric, and non-hirsute BREAST: soft, non-tender, symmetric, no dominant mass, normal nipple-areolar complex, no lymphadenopathy, and no nipple discharge CHEST: Normal inspiratory effort and Regular rate and rhythm ABDOMEN: soft, non-tender, and no masses PELVIC: external genitalia normal, normal Bartholin's glands, urethra, Pope's glands, no vulvar lesions, no cervical lesions, good vaginal support, physiologic discharge present, normal appearing perineal body and perianal region BIMANUAL: uterus normal size, shape and consistency, no adnexal masses, non-tender, and no cervical motion tenderness RECTOVAGINAL: deferred. NEURO: alert and oriented x3,exam grossly non-focal EXTREMITIES: normal ASSESSMENT/PLAN: 1) Health maintenance: Pap/HPV up to date. Nutrition, exercise and routine health maintenance exams reviewed. Trying to lose weight following quitting smoking last month. 2) Contraception: none. Trying to conceive. Educated on ovulation kits and cycle tracking. Discussed seeing physician in the future if unsuccessful for future steps. 3) STD screening: Declined STD check. 4) Follow up one year or sooner as needed Erick Kwong, student ERICA TEACHING PROVIDER (Physician/PA/SHIPPING AND RECEIVING ASSOCIATE) NOTE OF PERSONAL INVOLVEMENT IN CARE: I have personally seen and examined the patient and performed the medical decision-making components. I have reviewed the Advanced Practice Registered Nurse (SHIPPING AND RECEIVING ASSOCIATE) Student's documentation and verified the findings in the note as written. Any additions or changes are noted in bold/italics. Signature: Glenys Ngo Date: 08/15/2022 Time: 10:52 [facility]02-21-2023 History of Present illness Narrative* Glenys Ngo APRN.ARCHITECTURE FACULTY MEMBER - 08/15/2022 9:58 AM EST Meenakshi is a 37 year old who presents for an annual gynecologic exam without complaints. Stopped taking OCP one year ago to try and conceive. Menses: cycles every 28-30 days and 4-5 days of flow. Contraception: none HPV vaccine: No Last Pap: 09/05/2019 normal HPV: 09/04/2019 negative History of abnormal pap: Yes Last mammogram: Never Sexually active: Yes History of STDS: None Time with current partner: 5 years Exercise: 4 times a week for 30-40 minutes. Type: walking and running Diet: no red meat Seatbelt use: Yes OB History T0 L0 SAB0 IAB0 Ectopic0 Multiple0 Live Births0 Hydrometer Calibrator History LMP: 07/20/2022, Having periods Age at Menarche: Age at First : Age at Menopause: Hydrometer Calibrator History Comments: Sexual Activity: Yes; Male Contraception: Pill PAST MEDICAL HISTORY Diagnosis Date Cleft lip and palate PMS (premenstrual syndrome) PAST SURGICAL HISTORY Procedure Laterality Date ANES INTRAORAL W/BIOPSY REPAIR CLEFT PALATE 1987 BONE GRAFT MAXILLA 1994 EXTENSIVE JAW SURGERY 2000 FAMILY HISTORY Adopted: Yes Problem Relation Age of Onset other (unknown) Mother patient is adopted other (unknown) Father patient is adopted SOCIAL HISTORY Social History Tobacco Use Smoking status: Former Smokeless tobacco: Never Vaping Use Vaping Use: Never used Substance Use Topics Alcohol use: Yes Comment: occasionally Drug use: No REVIEW OF SYSTEMS Abdomen: No abdominal pain, nausea, vomiting, diarrhea, or constipation. No bloating, early satiety, indigestion, or increased flatulence. Bladder: No dysuria, gross hematuria, urinary frequency, urinary urgency, or incontinence. Breast: No breast lumps, nipple d/c, overlying skin changes, redness or skin retraction. Allergies and current medication updated:Yes EXAM: BP 120/70 Ht 5' 4 (1.63m) Wt 190 lb 9.6 oz (86.5kg) LMP 07/20/2022 BMI 32.70 kg/(m^2). GENERAL: pleasant, female in no apparent distress HEENT: Normocephalic, atraumatic, mucus membranes moist, and no lesions NECK: Supple, full range of motion, no adenopathy, and thyroid normal DERMATOLOGY: Normal, without lesions, non-icteric, and non-hirsute BREAST: soft, non-tender, symmetric, no dominant mass, normal nipple-areolar complex, no lymphadenopathy, and no nipple discharge CHEST: Normal inspiratory effort and Regular rate and rhythm ABDOMEN: soft, non-tender, and no masses PELVIC: external genitalia normal, normal Bartholin's glands, urethra, Pope's glands, no vulvar lesions, no cervical lesions, good vaginal support, physiologic discharge present, normal appearing perineal body and perianal region BIMANUAL: uterus normal size, shape and consistency, no adnexal masses, non- tender, and no cervicalmotion tenderness RECTOVAGINAL: deferred. NEURO: alert and oriented x3,exam grossly non-focal EXTREMITIES: normal ASSESSMENT/PLAN: 1) Health maintenance: Pap/HPV up to date. Nutrition, exercise and routine health maintenance exams reviewed. Trying to lose weight following quitting smoking last month. 2) Contraception: none. Trying to conceive. Educated on ovulation kits and cycle tracking. Discussed seeing physician in the future if unsuccessful for future steps. 3) STD screening: Declined STD check. 4) Follow up one year or sooner as needed Erick Kwong, student [facility] TEACHING PROVIDER (Physician/PA/SHIPPING AND RECEIVING ASSOCIATE) NOTE OF PERSONAL INVOLVEMENT IN CARE: I have personally seen and examined the patient and performed the medical decision-making components. I have reviewed the [facility] Practice Registered Nurse (SHIPPING AND RECEIVING ASSOCIATE) Student's documentation and verified the findings in the note as written. Any additions or changes are noted in bold/italics. Signature: Glenys Ngo Date: 08/15/2022 Time: 10:52 AM [facility] Diagnosis Encounter for gynecological examination (general) (routine) without abnormal findings- Primary Weight gain, abnormal Abnormal weight gain [facility] Diagnosis Missed menses- Primary Absence of menstruation documented in this [facility]* Diagnosis Advanced maternal age, primigravida, antepartum- Primary Elderly primigravida, antepartum Cleft lip and palate Cleft lip and cleft palate, unspecified [facility] Diagnosis Advanced maternal age, 1st , first trimester- Primary Encounter for screening for malignant neoplasm of cervix Screening for malignant neoplasm of the cervix Special screening examination for human papillomavirus (HPV) documented in this encounter [facility]* Diagnosis 12 weeks gestation of - Primary state, incidental Advanced maternal age, 1st , first trimester documented [facility]* Diagnosis Nuchal translucency of fetus on ultrasound- Primary Abnormal findings on screening Advanced maternal age, 1st , first trimester documented [facility]* Diagnosis 16 weeks gestation of - Primary state, incidental [facility]* Diagnosis Multigravida of advanced maternal age in second trimester- Primary 20 weeks gestation of state, incidental [facility]* Diagnosis Encounter for anatomic survey- Primary Advanced maternal age, 1st , first trimester Multigravida of advanced maternal age in second trimester 20 weeks gestation of state, incidental [facility]* Diagnosis Multigravida of advanced maternal age in second trimester- Primary 24 weeks gestation of state, incidental Encounter for supervision of normal first in second trimester Supervision of normal first Supervision of high risk in second trimester Unspecified high-risk Atypical squamous cells cannot exclude high grade squamous intraepithelial lesion on cytologic smear of cervix (ASC-H) Papanicolaou smear of cervix with atypical squamous cells cannot exclude high grade squamous intraepithelial lesion (ASC-H) documented [facility] this encounter [facility]* Diagnosis Encounter for follow-up ultrasound of anatomy [facility] Diagnosis Supervision of high risk in third trimester- Primary Unspecified high-risk Advanced maternal age, 1st , third trimester 29 weeks gestation of state, incidental Need for vaccination Need for prophylactic vaccination and inoculation against unspecified single disease documented in this encounter [facility]* Diagnosis Abnormal glucose complicating - Primary Abnormal maternal glucose tolerance, complicating , childbirth, or the puerperium, unspecified as to episode of care documented [facility] this encounter [facility]* Diagnosis 31 weeks gestation of - Primary state, incidental Supervision of high risk in third trimester Unspecified high-risk documented in this [facility]* Diagnosis 33 weeks gestation of - Primary state, incidental Need for influenza vaccination Need for prophylactic vaccination and inoculation against influenza Uterine size-date discrepancy, third trimester GDM (gestational diabetes mellitus), class A1 Abnormal maternal glucose tolerance, complicating , childbirth, or the puerperium, unspecified as to episode of care documented [facility]* Diagnosis Advanced maternal age, 1st , third trimester- Primary Supervision of high risk in third trimester Unspecified high-risk Encounter for ultrasound to check growth Encounter for routine screening for malformation using ultrasonics 33 weeks gestation of state, incidental Polyhydramnios in third trimester complication, single or unspecified fetus documented in this encounter [facility]* Diagnosis Polyhydramnios in third trimester complication, single or unspecified fetus- Primary Gestational diabetes mellitus, class A1 Abnormal maternal glucose tolerance, complicating , childbirth, or the puerperium, unspecified as to episode of care AMA (advanced maternal age) multigravida 35+, third trimester 35 weeks gestation of state, incidental documented [facility] this encounter [facility]* Diagnosis Macrosomia of fetus affecting management of mother in third trimester, single or unspecified fetus- Primary Uterine size-date discrepancy, third trimester GDM (gestational diabetes mellitus), class A1 Abnormal maternal glucose tolerance, complicating , childbirth, or the puerperium, unspecified as to episode of care 37 weeks gestation of state, incidental Obesity affecting in third trimester, unspecified obesity type documented in this encounter [facility]* Diagnosis Polyhydramnios in third trimester complication, single or unspecified fetus- Primary Gestational diabetes mellitus, class A1 Abnormal maternal glucose tolerance, complicating , childbirth, or the puerperium, unspecified as to episode of care AMA (advanced maternal age) multigravida 35+, third trimester Encounter for supervision of normal first in third trimester Supervision of normal first documented [facility] this encounter [facility]* Diagnosis Impaired glucose tolerance in , delivered- Primary Abnormal maternal glucose tolerance, with delivery Status post section routine follow-up Routine follow-up documented in this encounter [facility] for referral (narrative)* Diagnostic Procedure Only (Routine) - Authorized Specialty Diagnoses / Procedures Referred By Neil pantoja Referred To Contact [facility] Diagnoses Advanced maternal age, 1st , first trimester Procedures NUCHAL TRANSLUCENCY WHI US NUCHAL TRANSLUCENCY 1ST GESTATION Guero Estrella MD [address] [place] [address] [address] [address] [place] [address] Referral ID Status Reason Start Date Expiration Date Visits Requested Visits Authorized [id number] Authorized Auto-Generat ed Referral 10/13/2022 10/13/2023 1 1 [facility] for referral (narrative)* Diagnostic Procedure Only (Routine) - Pending Review Specialty Diagnoses / Procedures Referred By Contac t Referred To Contact [facility] Diagnoses 12 weeks gestation of Advanced maternal age, 1st , first trimester Procedures OBSTETRIC ULTRASOUND WHI US PREG UTERUS AFTER 1ST TRIMEST GESTATION Vilma Hernandez MD [address] [place] [address] [facility] [place] [facility] [place] [address] [place] [address] Referral ID Status Reason Start Date Expiration Date Visits Requested Visits Authorized [id number] Pending Review Auto-Generat ed Referral 11/13/2022 11/13/2023 1 1 T [facility] for referral (narrative)* Diagnostic Procedure Only (Routine) - Authorized Specialty Diagnoses / Procedures Referred By Contac t Referred To Contact [facility] Diagnoses Supervision of high risk in third trimester Advanced maternal age, 1st , first trimester Procedures OBSTETRIC ULTRASOUND WHI US PREG UTERUS AFTER 1ST TRIMEST GESTATION Guero Estrella MD [address] [place] [address] [facility] [place] [facility] [place] [address] [place] [address] Referral ID Status Reason Start Date Expiration Date Visits Requested Visits Authorized [id number] Authorized Auto-Generat ed Referral 03/13/2023 03/12/2024 1 1 [facility] for referral (narrative)* Diagnostic Procedure Only (Routine) - Authorized Specialty Diagnoses / Procedures Referred By Contac t Referred To Contact [facility] Diagnoses 33 weeks gestation of Uterine size-date discrepancy, third trimester GDM (gestational diabetes mellitus), class A1 Procedures OBSTETRIC ULTRASOUND WHI US PREG UTERUS AFTER 1ST TRIMEST GESTATION Sole Vogel MD [address] [place] [address] [address] Referral ID Status Reason Start Date Expiration Date Visits Requested Visits Authorized [id number] Authorized Auto-Generat ed Referral 3 04/09/2024 1 1 [facility] for referral (narrative)* Outpatient Procedure (Routine) - Authorized Specialty Diagnoses / Procedures Referred By Contac t Referred To Contact [facility] Diagnoses 35 weeks gestation of Polyhydramnios in third trimester complication, single or unspecified fetus Gestational diabetes mellitus, class A1 AMA (advanced maternal age) multigravida 35+, third trimester Procedures NON-STRESS TEST NON-STRESS TEST Magui Dee MD [address] [place] [address] [facility] [place] [facility] [place] [address] [place] [address] Referral ID Status Reason Start Date Expiration Date Visits Requested Visits Authorized [id number] Authorized Auto-Generat ed Referral 04/25/2023 04/24/2024 5 1 [facility] Health Concerns Problem Noted Date OB Reminders 10/13/2022 Problem Noted Date OB Reminders 10/13/2022 Problem Noted Date OB Reminders 10/13/2022 Problem Noted Date OB Reminders 10/13/2022 Problem Noted Date OB Reminders 10/13/2022 Problem Noted Date Diagnosed Date OB Reminders 10/13/2022 Problem Noted Date Diagnosed Date OB Reminders 10/13/2022 Problem Noted Date Diagnosed Date OB Reminders 10/13/2022 Problem Noted Date Diagnosed Date OB Reminders 10/13/2022 Problem Noted Date Diagnosed Date OB Reminders 10/13/2022 Problem Noted Date Diagnosed Date OB Reminders 10/13/2022 Problem Noted Date Diagnosed Date OB Reminders 10/13/2022 Problem Noted Date Diagnosed Date OB Reminders 10/13/2022 Problem Noted Date Diagnosed Date OB Reminders 10/13/2022 Problem Noted Date Diagnosed Date OB Reminders 10/13/2022 Problem Noted Date Diagnosed Date OB Reminders 10/13/2022 Problem Noted Date Diagnosed Date OB Reminders 10/13/2022 Problem Noted Date Diagnosed Date OB Reminders 10/13/2022 Summary Purpose Family History No Family History Records Found Advance Directives No Advanced Directives Records Found Additional Source Comments Source Comments (unrecognize d section and content) In the event this informatio n is protected by the Federal Confidentiality of Alcohol and Drug Abuse Patient Records regulations: The Federal rules restrict any use of the information to criminally investigate or prosecute any alcohol or drug abuse patient.[facility] the event this information is protected by the Federal Confidentiality of Alcohol and Drug Abuse Patient Records regulations: The Federal rules restrict any use of the information to criminally investigate or prosecute any alcohol or drug abuse patient.[facility] the event this information is protected by the Federal Confidentiality of Alcohol and Drug Abuse Patient Records regulations: The Federal rules restrict any use of the information to criminally investigate or prosecute any alcohol or drug abuse patient.[facility] the event this information is protected by the Federal Confidentiality of Alcohol and Drug Abuse Patient Records regulations: The Federal rules restrict any use of the information to criminally investigate or prosecute any alcohol or drug abuse patient.[facility] the event this information is protected by the Federal Confidentiality of Alcohol and Drug Abuse Patient Records regulations: The Federal rules restrict any use of the information to criminally investigate or prosecute any alcohol or drug abuse patient.[facility] Hospital[facility] the event this information is protected by the Federal Confidentiality of Alcohol and Drug Abuse Patient Records regulations: The Federal rules restrict any use of the information to criminally investigate or prosecute any alcohol or drug abuse patient.[facility] Hospital[facility] the event this information is protected by the Federal Confidentiality of Alcohol and Drug Abuse Patient Records regulations: The Federal rules restrict any use of the information to criminally investigate or prosecute any alcohol or drug abuse patient.[facility] Hospital[facility] the event this information is protected by the Federal Confidentiality of Alcohol and Drug Abuse Patient Records regulations: The Federal rules restrict any use of the information to criminally investigate or prosecute any alcohol or drug abuse patient.[facility] Hospital[facility] the event this information is protected by the Federal Confidentiality of Alcohol and Drug Abuse Patient Records regulations: The Federal rules restrict any use of the information to criminally investigate or prosecute any alcohol or drug abuse patient.[facility] Hospital[facility] the event this information is protected by the Federal Confidentiality of Alcohol and Drug Abuse Patient Records regulations: The Federal rules restrict any use of the information to criminally investigate or prosecute any alcohol or drug abuse patient.[facility] Hospital[facility] the event this information is protected by the Federal Confidentiality of Alcohol and Drug Abuse Patient Records regulations: The Federal rules restrict any use of the information to criminally investigate or prosecute any alcohol or drug abuse patient.[facility] Hospital[facility] the event this information is protected by the Federal Confidentiality of Alcohol and Drug Abuse Patient Records regulations: The Federal rules restrict any use of the information to criminally investigate or prosecute any alcohol or drug abuse patient.[facility] Hospital[facility] the event this information is protected by the Federal Confidentiality of Alcohol and Drug Abuse Patient Records regulations: The Federal rules restrict any use of the information to criminally investigate or prosecute any alcohol or drug abuse patient.[facility] Hospital[facility] the event this information is protected by the Federal Confidentiality of Alcohol and Drug Abuse Patient Records regulations: The Federal rules restrict any use of the information to criminally investigate or prosecute any alcohol or drug abuse patient.[facility] Hospital[facility] the event this information is protected by the Federal Confidentiality of Alcohol and Drug Abuse Patient Records regulations: The Federal rules restrict any use of the information to criminally investigate or prosecute any alcohol or drug abuse patient.[facility] HospitalIn the event this information is protected by the Federal Confidentiality of Alcohol and Drug Abuse Patient Records regulations: The Federal rules restrict any use of the information to criminally investigate or prosecute any alcohol or drug abuse patient.[facility] HospitalIn the event this information is protected by the Federal Confidentiality of Alcohol and Drug Abuse Patient Records regulations: The Federal rules restrict any use of the information to criminally investigate or prosecute any alcohol or drug abuse patient.[facility] HospitalIn the event this information is protected by the Federal Confidentiality of Alcohol and Drug Abuse Patient Records regulations: The Federal rules restrict any use of the information to criminally investigate or prosecute any alcohol or drug abuse patient.[facility] HospitalIn the event this information is protected by the Federal Confidentiality of Alcohol and Drug Abuse Patient Records regulations: The Federal rules restrict any use of the information to criminally investigate or prosecute any alcohol or drug abuse patient.[facility] HospitalIn the event this information is protected by the Federal Confidentiality of Alcohol and Drug Abuse Patient Records regulations: The Federal rules restrict any use of the information to criminally investigate or prosecute any alcohol or drug abuse patient.[facility] HospitalIn the event this information is protected by the Federal Confidentiality of Alcohol and Drug Abuse Patient Records regulations: The Federal rules restrict any use of the information to criminally investigate or prosecute any alcohol or drug abuse patient.[facility] HospitalIn the event this information is protected by the Federal Confidentiality of Alcohol and Drug Abuse Patient Records regulations: The Federal rules restrict any use of the information to criminally investigate or prosecute any alcohol or drug abuse patient.[facility] HospitalIn the event this information is protected by the Federal Confidentiality of Alcohol and Drug Abuse Patient Records regulations: The Federal rules restrict any use of the information to criminally investigate or prosecute any alcohol or drug abuse patient.[facility] HospitalIn the event this information is protected by the Federal Confidentiality of Alcohol and Drug Abuse Patient Records regulations: The Federal rules restrict any use of the information to criminally investigate or prosecute any alcohol or drug abuse patient.[facility] HospitalIn the event this information is protected by the Federal Confidentiality of Alcohol and Drug Abuse Patient Records regulations: The Federal rules restrict any use of the information to criminally investigate or prosecute any alcohol or drug abuse patient.[facility] HospitalIn the event this information is protected by the Federal Confidentiality of Alcohol and Drug Abuse Patient Records regulations: The Federal rules restrict any use of the information to criminally investigate or prosecute any alcohol or drug abuse patient.[facility] HospitalIn the event this information is protected by the Federal Confidentiality of Alcohol and Drug Abuse Patient Records regulations: The Federal rules restrict any use of the information to criminally investigate or prosecute any alcohol or drug abuse patient.[facility] HospitalIn the event this information is protected by the Federal Confidentiality of Alcohol and Drug Abuse Patient Records regulations: The Federal rules restrict any use of the information to criminally investigate or prosecute any alcohol or drug abuse patient.[facility] HospitalIn the event this information is protected by the Federal Confidentiality of Alcohol and Drug Abuse Patient Records regulations: The Federal rules restrict any use of the information to criminally investigate or prosecute any alcohol or drug abuse patient.[facility] HospitalIn the event this information is protected by the Federal Confidentiality of Alcohol and Drug Abuse Patient Records regulations: The Federal rules restrict any use of the information to criminally investigate or prosecute any alcohol or drug abuse patient.[facility] Reason for Visit (unrecogniz ed section and content) Reason Comments Yearly Exam Reason Comments Reason Comments Results Reason Comments Care Reason Onset Date Comments Care 11/13/2022 Reason Comments US Specialty Diagnoses / Procedures Referred By Contac t Referred To Contact [facility] Diagnoses Advanced maternal age, 1st , first trimester Procedures NUCHAL TRANSLUCENCY WHI US NUCHAL TRANSLUCENCY 1ST GESTATION Guero Estrella MD [address] [place] [address] [address] Referral ID Status Reason Start Date Expiration Date V isits Requested Visits Authorized [id number] Closed Auto-Generate d Referral 10/13/2022 10/13/2023 1 1 Reason Onset Date Comments Care 12/12/2022 Reason Onset Date Comments Care 01/09/2023 Specialty Diagnoses / Procedures Referred By Contac t Referred To Contact [facility] Diagnoses 12 weeks gestation of Advanced maternal age, 1st , first trimester Procedures OBSTETRIC ULTRASOUND WHI US PREG UTERUS AFTER 1ST TRIMEST GESTATION Vilma Hernandez MD [address] [facility] [place] [address] [facility] [place] [facility] [place] [address] [place] [address] Referral ID Status Reason Start Date Expiration Date V isits Requested Visits Authorized [id number] Closed Auto-Generate d Referral 11/13/2022 11/13/2023 1 1 Reason Onset Date Comments Care 02/06/2023 Specialty Diagnoses / Procedures Referred By Contac t Referred To Contact [facility] Diagnoses Encounter for follow-up ultrasound of anatomy Procedures OBSTETRIC ULTRASOUND WHI US PREG UTERUS AFTER 1ST TRIMEST GESTATION Vilma Hernandez MD [address] [place] [address] [address] Referral ID Status Reason Start Date Expiration Date V isits Requested Visits Authorized [id number] Closed Auto-Generate d Referral 01/12/2023 01/12/2024 1 1 Reason Onset Date Comments Care 03/13/2023 Reason Onset Date Comments Care 03/28/2023 Reason Comments Breast Pump Reason Onset Date Comments Care 04/10/2023 Immunizations 04/10/2023 Flu vaccination Specialty Diagnoses / Procedures Referred By Contac t Referred To Contact [facility] Diagnoses Supervision of high risk in third trimester Advanced maternal age, 1st , first trimester Procedures OBSTETRIC ULTRASOUND WHI US PREG UTERUS AFTER 1ST TRIMEST GESTATION Guero Estrella MD [address] [place] [address] [address] Referral ID Status Reason Start Date Expiration Date V isits Requested Visits Authorized [id number] Closed Auto-Generate d Referral 03/13/2023 03/12/2024 1 1 Reason Comments OB-pain Reason Onset Date Comments Care 04/25/2023 Specialty Diagnoses / Procedures Referred By Contac t Referred To Contact [facility] Diagnoses 33 weeks gestation of Uterine size-date discrepancy, third trimester GDM (gestational diabetes mellitus), class A1 Procedures OBSTETRIC ULTRASOUND WHI US PREG UTERUS AFTER 1ST TRIMEST GESTATION Sole Vogel MD [address] [place] [address] [address] Referral ID Status Reason Start Date Expiration Date V isits Requested Visits Authorized [id number] Closed Auto-Generate d Referral 04/10/2023 04/09/2024 1 1 Reason Onset Date Comments Care 05/08/2023 Reason Onset Date Comments Population Health Navigation Outreach 05/10/2023 Peds/OB Reason Comments Ob Delivery Note Care Teams (unrecognized sec tion and content) Charge Attendant Relationship Specialty Start Date End Date Tami Sherry Mchugh PCP - General Family Medicine 10/04/10 Charge Attendant Relationship Specialty Start Date End Date Tami Sherry Mchugh PCP - General Family Medicine 10/04/10 Charge Attendant Relationship Specialty Start Date End Date Dennyjuliomisty Sherry Mchugh PCP - General Family Medicine 10/04/10 Charge Attendant Relationship Specialty Start Date End Date Tami Sherry Mchugh PCP - General Family Medicine 10/04/10 Charge Attendant Relationship Specialty Start Date End Date DennyjuliomistySherry PCP - General Family Medicine 10/04/10 Charge Attendant Relationship Specialty Start Date End Date DennyjuliomistySherry PCP - General Family Medicine 10/04/10 Charge Attendant Relationship Specialty Start Date End Date DennyjuliomistySherry PCP - General Family Medicine 10/04/10 Charge Attendant Relationship Specialty Start Date End Date DennyjuliomistySherry PCP - General Family Medicine 10/04/10 Charge Attendant Relationship Specialty Start Date End Date Sherry Garrett PCP - General Family Medicine 10/04/10 Charge Attendant Relationship Specialty Start Date End Date Sherry Garrett PCP - General Family Medicine 10/04/10 Charge Attendant Relationship Specialty Start Date End Date Sherry Garrett PCP - General Family Medicine 10/04/10 Charge Attendant Relationship Specialty Start Date End Date Sherry Garrett PCP - General Family Medicine 10/04/10 Charge Attendant Relationship Specialty Start Date End Date Sherry Garrett PCP - General Family Medicine 10/04/10 Charge Attendant Relationship Specialty Start Date End Date Sherry Garrett MD PCP - General Family Medicine 10/04/10 Charge Attendant Relationship Specialty Start Date End Date Sherry Garrett MD PCP - General Family Medicine 10/04/10 Charge Attendant Relationship Specialty Start Date End Date Sherry Garrett MD PCP - General Family Medicine 10/04/10 Charge Attendant Relationship Specialty Start Date End Date Sherry Garrett MD PCP - General Family Medicine 10/04/10 Charge Attendant Relationship Specialty Start Date End Date Sherry Garrett MD PCP - General Family Medicine 10/04/10 Charge Attendant Relationship Specialty Start Date End Date Sherry Garrett MD PCP - General Family Medicine 10/04/10 Charge Attendant Relationship Specialty Start Date End Date Sherry Garrett MD PCP - General Family Medicine 10/04/10 INFORMATION SOURCE (unrecogn ized section and content) DATE CREATED AUTHOR 07/05/2023 [facility] FOR RECORDS PERTAINING TO PATIENTS WHO ARE OR HAVE BEEN ENROLLED IN A CHEMICAL DEPENDENCY/SUBSTANCEABUSE PROGRAM, SOME INFORMATION MAY BE OMITTED. This clinical summary was aggregated from multiple sources. Caution should be exercised in using it in the provision of clinical care. This summary normalizes information from multiple sources, and as a consequence, information in this document may materially change the coding, format and clinical context of patient data. In addition, data may be omitted in some cases. CLINICAL DECISIONS SHOULD BE BASED ON THE PRIMARY CLINICAL RECORDS. [facility] [facility]. provides no warranty or guarantee of the accuracy or completeness of information in this document.
== END 2024-04-18 15:24 | disposition home or self-care (01) ==
PROVIDERS: Emergency Provider Emergency Medicine; PCP Family Medicine; Visit Provider Emergency Medicine
DX: M25.512 Pain in left shoulder (principal); M25.552 Pain in left hip; R07.9 Chest pain, unspecified; V89.2XXA Person injured in unspecified motor-vehicle accident, traffic, initial encounter; Z87.891 Personal history of nicotine dependence
CPT/HCPCS: 99282

== ENCOUNTER → 2024-06-06 | Outpatient (CLI) | payer OTHER, SELFPAY ==
[2024-06-06 10:33] LABS: Cholesterol 186 mg/dL (200); High Density Lipoprotein 78 mg/dL; Triglycerides 45 mg/dL; Very Low Density Lipoprotein 9 mg/dL (5-40)
== END | disposition home or self-care (01) ==
LOC: MFPLAB 09:09
PROVIDERS: PCP Family Medicine
DX: Z00.00 Encounter for general adult medical examination without abnormal findings (principal)
CPT/HCPCS: 36415; 80061

== ENCOUNTER → 2024-07-24 | Outpatient (CLI) | payer OTHER, SELFPAY ==
[2024-07-29 14:08] LABS: Alternaria alternata <0.10 kU/L (Class 0); Aspergillus fumigatus <0.10 kU/L (Class 0); Bahia Grass <0.10 kU/L (Class 0); Bermuda Grass <0.10 kU/L (Class 0); Bluegrass, Kentucky 0.17 kU/L (Class 0/I); Cat Hair/Dander, Standard <0.10 kU/L (Class 0); Cedar, Mountain <0.10 kU/L (Class 0); Cladosporium herbarum <0.10 kU/L (Class 0); Cockroach, American <0.10 kU/L (Class 0); D farinae Mite <0.10 kU/L (Class 0); D pteronyssinus <0.10 kU/L (Class 0); Dog Epithelia <0.10 kU/L (Class 0); Elm, American White <0.10 kU/L (Class 0); Hazelnut Tree <0.10 kU/L (Class 0); Hickory, White <0.10 kU/L (Class 0); Johnson Grass <0.10 kU/L (Class 0); Maple/Box Elder <0.10 kU/L (Class 0); Mucor racemosus <0.10 kU/L (Class 0); Mugwort <0.10 kU/L (Class 0); Mulberry, White <0.10 kU/L (Class 0); Nettle <0.10 kU/L (Class 0); Oak, White <0.10 kU/L (Class 0); Penicillium chrysogen <0.10 kU/L (Class 0); Pigweed, Rough <0.10 kU/L (Class 0); Plantain, English <0.10 kU/L (Class 0); Ragweed, Short/Common <0.10 kU/L (Class 0); Sheep Sorrel(Dock) <0.10 kU/L (Class 0); Stemphylium herbarum <0.10 kU/L (Class 0); Sweet Gum <0.10 kU/L (Class 0); Sycamore, American <0.10 kU/L (Class 0)
== END | disposition home or self-care (01) ==
LOC: MFPLAB 16:57
PROVIDERS: PCP Family Medicine; Visit Provider Family Medicine
DX: T78.40XA Allergy, unspecified, initial encounter (principal)
CPT/HCPCS: 36415; 86003